=== PATIENT | female | born 1955 | race Caucasian/White ===

== ENCOUNTER 2018-05-03 21:40 | Emergency (ER) | payer BC ==
--- OUTSIDE RECORDS SUMMARY | 2018-05-03 21:42 | XMS REPORT | Clinical Summary ---
:1955 Author Organization [facility] Address [address] [place] [address] Care Team Providers Name Role Phone Ariela Bryant MD Primary Care Provider Allergies Active Allergy Reactions Severity Noted Date Comments Adhesive 11/01/2017 Codeine GI Intolerance High 11/20/2015 Current Medications Prescription Sig. Disp. Refills Start Date End Date Status metoprolol succinate XL Take 25 mg by Active (TOPROL-XL) 25 MG 24 hr mouth 2 (two) tablet times a day. rosuvastatin (CRESTOR) 10 daily. Active MG tablet spironolactone (ALDACTONE) every other day. Active 25 MG tablet aspirin (ECOTRIN) 81 MG Take 81 mg by Active enteric coated tablet mouth daily. MAGNESIUM OXIDE ORAL Take 800 mg by Active mouth 2 (two) times a day. conjugated estrogens Insert 0.5g in 42.5 g 1 11/09/2017 Active (PREMARIN) 0.625 mg/gram the vagina 2 vaginal creamIndications: times a week Uterovaginal prolapse, incomplete, Rectocele, Urinary urgency, Incontinence of feces, unspecified fecal incontinence type, Vaginal atrophy Active Problems Problem Noted Date Atrial fibrillation 11/19/2015 Cardiomegaly 11/19/2015 Coronary arteriosclerosis in [place] artery 11/19/2015 Disorder of cardiac function 11/19/2015 Abnormal electrocardiogram 11/19/2015 Palpitations 11/19/2015 Paroxysmal supraventricular tachycardia 11/19/2015 Paroxysmal ventricular tachycardia 11/19/2015 Extrasystole 11/19/2015 Encounters Date Type Specialty Care Team Description 03/22/2018 Office Visit Urogynecology Kristina Finn Uterovaginal prolapse , incomplete (Primary Dx); MAkhil, VICKY Rectocele; Urinary urgency; Incontinence of feces, unspecified fecal incontinence type; Vaginal atrophy; Encounter for fitting and adjustment of pessary 03/12/2018 Telephone Obstetrics [facility]ne[facility] Leonard Soto MD 03/02/2018 Telephone Obstetrics [facility] Leonard Soto MD 02/26/2018 Transcribe Orders Access Vinnie Horn Breast mass (Primary Dx) 01/18/2018 Telephone Obstetrics [facility] Gyne[facility] Leonard Soto MD 11/13/2017 Lab Lab Vinnie Horn MD 11/13/2017 Hospital Encounter Radiology Vinnie Horn Breast mass 11/13/2017 Hospital Encounter Radiology Vinnie Horn Breast mass 11/13/2017 Ancillary Orders Access Vinnie Horn Breast mass 11/09/2017 Office Visit Urogynecology Meseret Crisostomo Uterovaginal prolapse, incomplete (Primary Dx); Leonard Soto, Rectocele; MD Urinary urgency; Incontinence of feces, unspecified fecal incontinence type; Vaginal atrophy 11/06/2017 Telephone Radiology Brigitte Larios, SAVANNAH 11/03/2017 Telephone Radiology Brigitte Larios, RN 11/01/2017 Transcribe Orders Access Vinnie Horn Breast mass (Primary Dx) 11/01/2017 Telephone Radiology Brigitte Larios, RN 10/31/2017 Hospital Encounter Radiology Vinnie Horn, Abnormal mammogram 10/31/2017 Hospital Encounter Radiology Vinnie Horn, Abnormal mammogram 10/31/2017 Ancillary Orders Access Vinnie Horn, Abnormal mammogram 10/10/2017 Transcribe Orders Access Vninie Horn, Abnormal mammogram (Primary Dx) 09/18/2017 Telephone Obstetrics [facility] Gyne[facility] Leonard Soto MD after 05/02/2017 Family History Medical History Relation Name Comments Heart disease Brother heart attack age 42 Hyperlipidemia Brother Hyperlipidemia Brother Heart disease Brother Reggie Parham Jr Heart attack Hypertension Brother Reggie Parham Jr Hypertension Brother Richyjenelle Parham Learning disabilities Brother Reggie Parham Unknown Alzheimer's disease Father Reggie Parham Breast cancer Father Reggie Parham Cancer Father Reggie Parham Breast Dementia Father Reggie Parham Depression Father Reggie Parham Hearing loss Father Reggie Parham Menengioma Heart disease Father Reggie Parham Aortic stenosis Hemangiomas Father Reggie Arguetagas Hyperlipidemia Father Reggie Arguetagas Hypertension Father Reggie Ansaris Cancer Maternal Grandfather Reggie Fuentes Lung Heart disease Maternal Grandmother Kezia Fuentes Heart related illness from rheumatic fever Alzheimer's disease Mother Gayle Giourgas Breast cancer Mother Gayle Giourgas Cancer Mother Gayle Giourgas Breast Dementia Mother Gayle Giourgas Heart disease Mother Gayle Giourgas Aortic stenosis Hyperlipidemia Mother Gayle Giourgas Hypertension Mother Gayle Giourgas Asthma Paternal Grandfather Richy Giourgas Cancer Paternal Grandfather Richy Giourgas Stomach Cancer Paternal Grandmother Kalliopelmo Giourgas Brain Heart disease Paternal Grandmother Kalliopelmo Giourgas Heart attack Miscarriages / Paternal Grandmother Kalliopie Giourgas Stillbirths Relation Name Status Comments Brother Brother Brother Reggie Parham, Jr Brother Richy Arguetagas Brother Reggie Ansaris Father Reggie Ansaris Maternal Grandfather Reggie Fuentes Maternal Grandmother Kezia Fuentes Mother Gayle Giourgas Paternal Grandfather Richy Floresourgas Paternal Grandmother Tabitha Arguetagas Social History Tobacco Use Types Packs/Day Years Used Date Never Smoker Smokeless Tobacco: Never Used Alcohol Use Drinks/Week oz/Week Comments No Sex Assigned at Date Recorded Not on file Last Filed Vital Signs Vital Sign Reading Time Taken Blood Pressure 114/78 03/22/2018 2:29 PM CDT Pulse 87 03/22/2018 2:29 PM CDT Temperature 36.5 C (97.7 F) 03/22/2018 2:29 PM CDT Respiratory Rate - - Oxygen Saturation - - Inhaled Oxygen Concentration - - Weight 68.5 kg (151 lb) 03/22/2018 2:29 PM CDT Height 170.2 cm (5' 7") 03/22/2018 2:29 PM CDT Body Mass Index 23.65 03/22/2018 2:29 PM CDT Plan of Treatment Date Type Specialty Care Team Description 05/15/2018 Appointment Radiology Vinnie Horn MD [address] [place] [id number] [phone] Health Maintenance Due Date Last Done Comments CERVICAL CANCER SCREENING 1977 COLON CANCER SCREENING 2006 SHINGRIX VACCINE (#1) 2006 ZOSTER VACCINE 2016 INFLUENZA VACCINE 04/04/2018 BREAST CANCER SCREENING 11/14/2019 11/13/2017, 10/31/2017, 10/31/2017, Additional history exists Implants Implanted Type 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 MAMMO DIAGNOSTIC W Routine 11/13/2017 10:11 Breast mass Results for this CAD RIGHT AM CDT procedure are in the results section. US BREAST BIOPSY Routine 11/13/2017 9:50 Breast mass Results for this RIGHT AM CDT procedure are in the results section. MICROSCOPIC Routine 11/09/2017 1:45 Results for this EXAMINATION PM PASSEMENTERIE WORKER procedure are in the results section. URINALYSIS, Routine 11/09/2017 1:45 Results for this AUTOMATED WITH PM PASSEMENTERIE WORKER procedure are in MICROSCOPY the results section. URINE CULTURE Routine 11/09/2017 1:45 Urinary urgency Results for this PM PASSEMENTERIE WORKER procedure are in the results section. POC URINALYSIS Routine 11/09/2017 9:03 Uterovaginal Results for this DIPSTICK AM PASSEMENTERIE WORKER prolapse, incomplete procedure are in Urinary urgency the results section. MEASURE POST VOID Routine 11/09/2017 12:00 Uterovaginal Results for this RESIDUAL AM PASSEMENTERIE WORKER prolapse, incomplete procedure are in Urinary urgency the results section. US BREAST COMPLETE Routine 10/31/2017 3:30 Abnormal mammogram Results for this BILATERAL PM PASSEMENTERIE WORKER procedure are in the results section. MAMMO DIAGNOSTIC W Routine 10/31/2017 2:30 Abnormal mammogram Results for this CAD BILATERAL PM PASSEMENTERIE WORKER procedure are in the results section. after 05/02/2017 Results Surgical pathology request (11/13/2017 12:10 PM) [facility] DEPARTMENT OF PATHOLOGY AND GENOMIC MEDICINE Surgical pathology report See link below for PDF [facility] DEPARTMENT OF Lab Report PATHOLOGY AND GENOMIC MEDICINE Result status This is Final Report to [facility] DEPARTMENT OF [id number] PATHOLOGY AND GENOMIC MEDICINE Performing Organization Address [facility] Phone Number [facility] DEPARTMENT OF PATHOLOGY AND [address] [place] [address] GENOMIC MEDICINE Mammo Diagnostic w Cad Right (11/13/2017 10:11 AM) Addenda Addendum by Lucio Byrne MD on 11/16/2017 8:41 AM ADDENDUM #1 Addendum report for pathology. Anatomic path diagnosis of the right breast ultrasound-guided biopsy of the dense area of asymmetry reveals only stromal fibrosis. Reporting pathologist: Dr. Girma Kim M.D. on 11/14/2017. IMPRESSION: BI-RADS Category 3, probably benign findings. Recommend 6 month mammogram and ultrasound follow-up to ensure stability of these negative findings. Narrative Performed At PROCEDURE: US BREAST BIOPSY RIGHT, MAMMO DIAGNOSTIC W CAD RIGHT ANGELICA HASKINS Patient presents for biopsy of right upper outer quadrant focal echogenic irregular mass and/or density at mid depth with some posterior acoustic shadowing. After informed consent and timeout procedure a 12-gauge Bard biopsy device was utilized to biopsy the mass in the right upper outer quadrant. After biopsy placement of a small tissue marker was accomplished. This was a ribbon clip. Post procedure mammogram also accomplished on the right. The ribbon clip appears to be in the far lateral right breast, 9 o'clock position. IMPRESSION:Successful ultrasound-guided biopsy right breast. RECOMMENDATION: Await histopathology for further BI-RADS category. BI-RADS 0, incomplete. Awaiting histopathology for final BI-RADS category. [facility]-[id number] Performing Organization Address City/[facility]/Zipcode Phone Number ANGELICA HASKINS [address] [place] [address] US Breast Biopsy Right (11/13/2017 9:50 AM) Addenda Addendum by Lucio Byrne MD on 11/16/2017 8:41 AM ADDENDUM #1 Addendum report for pathology. Anatomic path diagnosis of the right breast ultrasound-guided biopsy of the dense area of asymmetry reveals only stromal fibrosis. Reporting pathologist: Dr. Girma Kim M.D. on 11/14/2017. IMPRESSION: BI-RADS Category 3, probably benign findings. Recommend 6 month mammogram and ultrasound follow-up to ensure stability of these negative findings. Narrative Performed At PROCEDURE: US BREAST BIOPSY RIGHT, MAMMO DIAGNOSTIC W CAD RIGHT ANGELICA HASKINS Patient presents for biopsy of right upper outer quadrant focal echogenic irregular mass and/or density at mid depth with some posterior acoustic shadowing. After informed consent and timeout procedure a 12-gauge Bard biopsy device was utilized to biopsy the mass in the right upper outer quadrant. After biopsy placement of a small tissue marker was accomplished. This was a ribbon clip. Post procedure mammogram also accomplished on the right. The ribbon clip appears to be in the far lateral right breast, 9 o'clock position. IMPRESSION:Successful ultrasound-guided biopsy right breast. RECOMMENDATION: Await histopathology for further BI-RADS category. BI-RADS 0, incomplete. Awaiting histopathology for final BI-RADS category. [facility]-[id number] Performing Organization Address City/[facility] Cent[facility]ode Phone Number [facility] [address] [place] [address] Microscopic Examination (11/09/2017 1:45 PM) WBC, UA None seen 0 - 5 /hpf [facility] RBC, UA 0-2 0 - 2 /hpf [facility] Epithelial cells (non renal) 0-10 0 - 10 /hpf [facility] Mucus, UA Present Not Estab. [facility] Bacteria, UA None seen None seen/Few [facility] Narrative Performed At Performed at: [facility] [address], [id number] [employer] Attendant: Young Clements MD, Phone:[phone] Performing Organization Address City/State/Zipcode Phone Number [facility] Urinalysis, automated with microscopy (11/09/2017 1:45 PM) Specific gravity, urine 1.014 1.005 - 1.030 [facility] pH, urine 6.0 5.0 - 7.5 [facility] Color, UA Yellow Yellow [facility] Appearance Clear Clear [facility] WBC esterase, urine Negative Negative [facility] Protein, UA Negative Negative/Trace [facility] Glucose, urine Negative Negative [facility] Ketones, UA Negative Negative [facility] Occult blood, urine Negative Negative [facility] Bilirubin, UA Negative Negative [facility] Urobilinogen, UA 0.2 0.2 - 1.0 mg/dL [facility] Nitrite, UA Negative Negative [facility] Microscopic examination CommentComment: Microscopic [facility] follows if indicated. Microscopic examination See below:Comment: Microscopic [facility] was indicated and was performed. Narrative Performed At Performed at:[address] [place], [place] [id number] [employer] Attendant: Young Clements MD, Phone:[phone] Performing Organization Address [facility] Phone Number [facility] Urine culture (11/09/2017 1:45 PM) Urine culture Beta hemolytic Streptococcus, group B [facility] 50,000-100,000 colony forming units per mL (A) Comment: Penicillin and ampicillin are drugs of choice for treatment of beta-hemolytic streptococcal infections. Susceptibility testing of penicillins and other beta-lactam agents approved by the FDA for treatment of beta-hemolytic streptococcal infections need not be performed routinely because nonsusceptible isolates are extremely rare in any beta-hemolytic streptococcus and have not been reported for Streptococcus pyogenes (group A). (CLSI 2011) Specimen Urine Narrative Performed At Performed at:[address] [place], [place] [id number] [employer] Attendant: Young Clements MD, Phone:[phone] Performing Organization Address [facility] Phone Number [facility] POC urinalysis dipstick (11/09/2017 9:03 AM) Color urine, POC Yellow Clarity urine, POC Clear Glucose urine, POC Negative Negative Bilirubin urine, POC Negative Negative Ketones urine, POC Negative Negative Specific gravity urine, POC 1.010 1.005 - 1.030 Blood urine, POC Trace (A) Negative pH urine, POC 6.0 5.0, 5.5, 6.0, 6.5, 7.0, 7.5, 8.0, 8.5 Protein urine, POC Negative Negative Urobilinogen urine, POC <2.0 <2.0 Nitrite urine, POC Negative Negative Leukocyte esterase urine, POC Trace (A) Negative Specimen Urine Measure post void residual (11/09/2017) Total volume, urine 0ml US Breast Complete Bilateral (10/31/2017 3:30 PM) Narrative Performed At EXAMINATION:MAMMO DIAGNOSTIC W CAD BILATERAL, US BREAST COMPLETE HM RADIANT BILATERAL INDICATION:61-year-old with the follow-up evaluation's from 2015 2016. COMPARISON:March 2016 through February 06, 2017. FINDINGS: The breasts are heterogeneously dense which, may obscure small masses.No suspicious mass was seen on the left breast as was being followed from February 2017. The patient was having left axillary pain. On today's exam there is focal asymmetry of the rounded nature in the posterior central right breast in the cc view and in the upper view and the axillary tail. Also a implantable cardiac device, tubular in shape is seen in the medial left breast. No abnormal adenopathy noted. No abnormal calcifications are seen. Spot magnification views in the right breast show persistent focal asymmetry in upper posterior breast. Bilateral whole breast sonography was performed with close supervision. This included sonographic evaluation of all 4 quadrants as well as the subareolar regions bilaterally.There is a focal echogenic irregularly defined mass and/or density in mid depth measuring roughly 2.3 cm with's some posterior acoustic shadowing. This may in fact be accounting for the focal asymmetry seen on the mammogram. IMPRESSION:Moderately suspicious finding on ultrasound, right breast upper outer quadrant. RECOMMENDATION: From an ultrasound-guided core biopsy. BI-RADS 4: SUSPICIOUS. [facility]-[id number] Performing Organization Address City/State/Zipcode Phone Number [facility] [address] [place] [address] Mammo Diagnostic w Cad Bilateral (10/31/2017 2:30 PM) Narrative Performed At EXAMINATION:MAMMO DIAGNOSTIC W CAD BILATERAL, US BREAST COMPLETE HM RADIANT BILATERAL INDICATION:61-year-old with the follow-up evaluation's from 2015 2016. COMPARISON:March 2016 through February 06, 2017. FINDINGS: The breasts are heterogeneously dense which, may obscure small masses.No suspicious mass was seen on the left breast as was being followed from February 2017. The patient was having left axillary pain. On today's exam there is focal asymmetry of the rounded nature in the posterior central right breast in the cc view and in the upper view and the axillary tail. Also a implantable cardiac device, tubular in shape is seen in the medial left breast. No abnormal adenopathy noted. No abnormal calcifications are seen. Spot magnification views in the right breast show persistent focal asymmetry in upper posterior breast. Bilateral whole breast sonography was performed with close supervision. This included sonographic evaluation of all 4 quadrants as well as the subareolar regions bilaterally.There is a focal echogenic irregularly defined mass and/or density in mid depth measuring roughly 2.3 cm with's some posterior acoustic shadowing. This may in fact be accounting for the focal asymmetry seen on the mammogram. IMPRESSION:Moderately suspicious finding on ultrasound, right breast upper outer quadrant. RECOMMENDATION: From an ultrasound-guided core biopsy. BI-RADS 4: SUSPICIOUS. [facility]-[id number] Performing Organization Address City/State/Zipcode Phone Number [facility] [address] [place] [address] after 05/02/2017 Insurance Payer Benefit Plan / Group Subscriber ID Type Phone Address BCBS BCBS CHOICE PPO/FEDERAL EMPL xxxxxxxxxxxx PPO PPO COMMERCIAL MISC MISC COMMERCIAL xxxxxx Commercial
[2018-05-03 22:36] LABS: Absolute Lymphocytes (CBC) 1.8 K/uL (0.7-4.9); Absolute Monocytes 0.9 K/uL (0.1-1.3); Basophils % 0.6 % (0-1.3); Eosinophils % 0.6 % (0-4.4); Hematocrit 44.9 % (36.0-45.0); Lymphocytes % 15.4 % (15.3-44.8); MCH 30.6 pg (27.0-35.0); MCV 90.7 fL (80-100); MPV 9.5 fL (7.6-11.3); Monocytes % 7.3 % (3.3-12.3); RBC Red Blood Cell Count 4.95 M/uL (3.86-4.86)
[2018-05-03 22:56] LABS: Protime INR 1.34
[2018-05-03 22:58] LABS: Urine Blood 1+ (NEG); Urine Glucose NEGATIVE (NEG); Urine Protein NEGATIVE (NEG)
[2018-05-03 23:10] LABS: ALT/SGPT 27 U/L (12-78); AST/SGOT 17 U/L (15-37); Albumin 3.9 g/dL (3.4-5.0); Alkaline Phosphatase 140 U/L (45-117); BUN Blood Urea Nitrogen 14 mg/dL (7-18); Bicarbonate 28 mmol/L (21-32); Bilirubin Direct 0.2 mg/dL (0-0.2); Bilirubin Total 0.7 mg/dL (0.2-1.0); CKMB Creatine Kinase MB < 1.0 ng/mL (0.3-3.6); Creatine Phosphokinase 53 U/L (26-192); Glucose Level 113 mg/dL (74-106); Magnesium 2.3 mg/dL (1.8-2.4); NT PRO-BNP 331 pg/mL (<125); Potassium 3.5 mmol/L (3.5-5.1); Protein, Total 7.9 g/dL (6.4-8.2); Sodium Level 142 mmol/L (136-145); T3 Free 3.32 pg/mL (2.18-3.98)
[2018-05-04] MEDS ORDERED: ASPIRIN 81 MG CHEWABLE TABLET ONE (00:22)
--- NOTE | 2018-05-04 02:03 | EDPHYS ---
Physician Documentation [facility] Name: Tabitha Combs Age: 62 yrs Sex: Female : 1955 Arrival Date: 05/03/2018 Time: 21:42 Bed 27 Private MD: Vinnie Horn V ED Physician Dandre Rivero HPI: 05/03 22:20 This 62 yrs old Female presents to ER via Ambulatory with complaints of cp Palpitations. 22:20 The patient presents with a history of heart racing. cp 22:20 Context: The symptoms occur and the patient has a history of SVT. cp 22:20 Onset: The symptoms/episode began/occurred today. Duration: The patient or guardian cp reports multiple episodes, that wax and wane, with no pattern. Associated signs and symptoms: Pertinent positives: chest pain, near-syncope, Pertinent negatives: cough, fever, SOB, syncope, vomiting. Severity of symptoms: in the emergency department the symptoms have resolved. Historical: - Allergies: 21:50 Codeine; aj1 - Home Meds: 21:50 metoprolol tartrate 25 mg Oral tab 2 times per day [Active]; spironolactone 25 mg Oral aj1 tab once daily [Active]; Crestor 10 mg Oral tab once daily [Active]; Magnesium Oxide Oral twice a day [Active]; Vitamin B-12 500 mcg Oral tab [Active]; aspirin 81 mg Oral TbEC [Active]; - PMHx: 21:50 Atrial Fib; Hyperlipidemia; Hypertension; SVT; VSD; aj1 - Immunization history:: Flu vaccine is not up to date. - Social history:: Smoking status: Patient/guardian denies using tobacco. - Ebola Screening: : Patient denies travel to an Ebola-affected area in the 21 days before illness onset. ROS: 22:30 Eyes: Negative for injury, pain, redness, and discharge. cp 22:30 Constitutional: Negative for body aches, chills, fever, poor PO intake. 22:30 ENT: Negative for drainage from ear(s), ear pain, sore throat, difficulty swallowing, difficulty handling secretions. 22:30 Cardiovascular: Positive for chest pain, palpitations, Negative for edema. 22:30 Respiratory: Negative for cough, shortness of breath, wheezing. 22:30 Abdomen/GI: Negative for abdominal pain, nausea, vomiting, and diarrhea, constipation, black/tarry stool, rectal bleeding. 22:30 Back: Negative for pain at rest, pain with movement, radiated pain. 22:30 : Negative for urinary symptoms. 22:30 Skin: Negative for cellulitis, rash. 22:30 Neuro: Positive for near syncope, Negative for altered mental status, dizziness, headache, syncope, weakness. 22:30 All other systems are negative. Exam: 22:12 ECG was reviewed by the Attending Physician. cp 22:35 Constitutional: The patient appears in no acute distress, alert, awake, cp non-diaphoretic, non-toxic, well developed, well nourished. 22:35 Head/Face: Normocephalic, atraumatic. cp 22:35 Eyes: Periorbital structures: appear normal, Pupils: equal, round, and reactive to cp light and accomodation, Extraocular movements: intact throughout, Conjunctiva: normal, no exudate, no injection, Lids and lashes: appear normal, bilaterally. 22:35 ENT: External ear(s): are unremarkable, Ear canal(s): are normal, clear, TM's: dullness, bilaterally, Nose: is normal, Mouth: Lips: moist, Oral mucosa: pink and intact, moist, Posterior pharynx: is normal, airway is patent, no erythema, no exudate. 22:35 Neck: ROM/movement: is normal, is supple, without pain, no range of motions limitations, no nuchal rigidity. 22:35 Chest/axilla: Inspection: normal, Palpation: is normal, no crepitus, no tenderness. 22:35 Cardiovascular: Rate: normal, Rhythm: regular, Pulses: Pulses are 2+ in right radial artery and left radial artery. Edema: is not appreciated, JVD: is not appreciated. 22:35 Respiratory: the patient does not display signs of respiratory distress, Respirations: cp normal, no use of accessory muscles, no retractions, no splinting, no tachypnea, Breath sounds: are clear throughout, no decreased breath sounds, no stridor, no wheezing. 22:35 Abdomen/GI: Inspection: abdomen appears normal, Bowel sounds: active, all quadrants, Palpation: abdomen is soft and non-tender, in all quadrants. 22:35 Back: pain, is absent, ROM is normal. 22:35 Skin: cellulitis, is not appreciated, no rash present. 22:35 Neuro: Orientation: to person, place \T\ time. Mentation: lucid, able to follow commands, Cerebellar function: is grossly normal, Motor: moves all fours, strength is normal, Sensation: no obvious gross deficits. 05/04 01:55 ECG was reviewed by the Attending Physician. cp Vital Signs: 05/03 21:50 BP 137 / 104; Pulse 103; Resp 18; Temp 97.4; Pulse Ox 97% on R/A; Weight 68.04 kg (R); aj1 Height 5 ft. 7 in. (170.18 cm) (R); Pain 4/10; 22:35 BP 142 / 91 LA (auto/reg); Pulse 88; Resp 17; Pulse Ox 97% on R/A; Pain 4/10; jp3 23:05 BP 132 / 91; Pulse 87; Resp 14; Pulse Ox 96% on R/A; rv 23:30 BP 139 / 94 Supine; Pulse 91; rv 23:30 BP 139 / 96 Sitting; Pulse 102; rv 23:30 BP 128 / 95 Standing; Pulse 101; rv 05/04 00:50 BP 136 / 90; Pulse 78; Resp 14; Pulse Ox 97% on R/A; rv 05/03 21:50 Body Mass Index 23.49 (68.04 kg, 170.18 cm) aj1 MDM: 05/03 22:02 Patient medically screened. cp 05/04 02:00 Data reviewed: vital signs, nurses notes, lab test result(s), EKG, radiologic studies, cp plain films. 02:00 Test interpretation: by ED physician or midlevel provider: ECG, plain radiologic cp studies. 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 Response to treatment: the patient's symptoms have markedly improved after treatment, VSS. No complaints of palpitations or chest pain while in ED. Will discharge to home for continued monitoring. Patient has appt with cardiology later today. 05/03 22:08 Order name: Basic Metabolic Panel; Complete Time: 23:15 cp 05/03 23:15 Interpretation: Normal except: GLUC 113; GFR 64. cp 05/03 22:08 Order name: CBC with Diff; Complete Time: 23:15 cp 05/03 22:08 Order name: Ckmb; Complete Time: 23:15 cp 05/03 22:08 Order name: CPK; Complete Time: 23:15 cp 05/03 22:08 Order name: LFT's; Complete Time: 23:15 cp 05/03 22:08 Order name: Magnesium; Complete Time: 23:15 cp 05/03 22:08 Order name: NT PRO-BNP; Complete Time: 23:15 cp 05/03 23:16 Interpretation: Abnormal: NT PRO-BNP 331. cp 05/03 22:08 Order name: PT-INR; Complete Time: 23:15 cp 05/03 22:08 Order name: Ptt, Activated; Complete Time: 23:15 cp 05/03 22:08 Order name: Troponin (emerg Dept Use Only); Complete Time: 23:15 cp 05/03 23:16 Interpretation: TROPED < 0.02; Reviewed. 05/03 22:08 Order name: TSH; Complete Time: 23:15 cp 05/03 22:08 Order name: T3 Free; Complete Time: 23:15 cp 05/03 22:43 Order name: Urine Dipstick--Ancillary (enter results); Complete Time: 23:15 mw2 05/04 00:51 Order name: Troponin I; Complete Time: 01:57 cp 05/04 01:57 Interpretation: Within normal limits: TROP < 0.02. cp 05/03 22:08 Order name: XRAY Chest (1 view) cp 05/03 22:08 Order name: EKG; Complete Time: 22:09 cp 05/03 22:08 Order name: Cardiac monitoring; Complete Time: 22:34 cp 05/03 22:08 Order name: EKG - Nurse/Tech; Complete Time: 22:34 cp 05/03 22:08 Order name: IV Saline Lock; Complete Time: 22:34 cp 05/03 22:08 Order name: Labs collected and sent; Complete Time: 22:34 cp 05/03 22:08 Order name: O2 Per Protocol; Complete Time: 22:34 cp 05/03 22:08 Order name: O2 Sat Monitoring; Complete Time: 22:34 cp 05/03 22:08 Order name: Urine Dipstick-Ancillary (obtain specimen); Complete Time: 22:34 cp 05/03 23:25 Order name: Orthostatics; Complete Time: 23:30 cp 05/04 00:51 Order name: EKG; Complete Time: 00:51 cp 05/04 00:51 Order name: EKG - Nurse/Tech; Complete Time: 01:53 cp EC/30 22:12 Rate is 92 beats/min. Rhythm is regular. WV interval is normal. QRS interval is cp prolonged at 108 msec. QT interval is normal. Interpreted by me. Reviewed by me. 05/04 01:55 Rate is 82 beats/min. Rhythm is regular. WV interval is normal. QRS interval is cp prolonged at 104 msec. QT interval is normal. Clinical impression: Abnormal EKG without significant change. Interpreted by me. Reviewed by me. Administered Medications: 00:41 Drug: Aspirin Chewable Tablet 324 mg Route: PO; rv 01:53 Follow up: Response: No adverse reaction rv Disposition: 12:38 Co-signature as Attending Physician, Dandre Rivero MD I agree with the assessment and wa plan of care. Disposition: 05/04/18 02:02 Discharged to Home. Impression: Palpitations. - Condition is Stable. - Discharge Instructions: Palpitations. - Medication Reconciliation Form, Thank You Letter, Antibiotic Education, Prescription Opioid Use form. - Follow up: Private Physician; When: Today; Reason: Recheck today's complaints, as scheduled. - Problem is new. - Symptoms have improved. Signatures: Dispatcher [employer] Alexa Bryson RN RN aj1 Santy Dietz PA PA cp Appiah, William, MD MD wa Vicente, Ronaldo, RN RN rv Corrections: (The following items were deleted from the chart) 02:14 02:02 05/04/2018 02:02 Discharged to Home. Impression: Palpitations. Condition is rv Stable. Forms are Medication Reconciliation Form, Thank You Letter, Antibiotic Education, Prescription Opioid Use. Follow up: Private Physician; When: Today; Reason: Recheck today's complaints, as scheduled. Problem is new. Symptoms have improved. cp
--- NOTE | 2018-05-04 02:03 | ER ---
Nurse's Notes [facility] Name: Tabitha Combs Age: 62 yrs Sex: Female : 1955 Arrival Date: 05/03/2018 Time: 21:42 Bed 27 Private MD: Vinnie Horn V Diagnosis: Palpitations Presentation: 05/03 21:47 Presenting complaint: Patient states: She has a history of SVT, She was suppose to [facility] follow up with her doctor tomorrow, but today she kept feeling like she was going to pass out so she came to the ER. Reports palpitations, chest pain, feeling like she is going to pass out. Denies shortness of breath. Transition of care: patient was not received from another setting of care. Onset of symptoms was May 03, 2018. Risk Assessment: Do you want to hurt yourself or someone else? Patient reports no desire to harm self or others. Initial Sepsis Screen: Does the patient meet any 2 criteria? No. Patient's initial sepsis screen is negative. Does the patient have a suspected source of infection? No. Patient's initial sepsis screen is negative. Care prior to arrival: None. 21:47 Method Of Arrival: Ambulatory [facility] 21:47 Acuity: RUBIN 3 aj1 Triage Assessment: 21:50 General: Appears in no apparent distress. uncomfortable, Behavior is calm, cooperative, aj1 appropriate for age. Pain: Complains of pain in chest Pain currently is 4 out of 10 on a pain scale. Neuro: Level of Consciousness is awake, alert, obeys commands, Speech is normal, Facial symmetry appears normal, Reports dizziness. Cardiovascular: Reports chest pain, palpitations, Patient's skin is warm and dry. Respiratory: Airway is patent Respiratory effort is even, unlabored, Respiratory pattern is regular, symmetrical. Historical: - Allergies: 21:50 Codeine; aj1 - Home Meds: 21:50 metoprolol tartrate 25 mg Oral tab 2 times per day [Active]; spironolactone 25 mg Oral aj1 tab once daily [Active]; Crestor 10 mg Oral tab once daily [Active]; Magnesium Oxide Oral twice a day [Active]; Vitamin B-12 500 mcg Oral tab [Active]; aspirin 81 mg Oral TbEC [Active]; - PMHx: 21:50 Atrial Fib; Hyperlipidemia; Hypertension; SVT; VSD; aj1 - Immunization history:: Flu vaccine is not up to date. - Social history:: Smoking status: Patient/guardian denies using tobacco. - Ebola Screening: : Patient denies travel to an Ebola-affected area in the 21 days before illness onset. Screenin:44 Abuse screen: Denies threats or abuse. Denies injuries from another. Nutritional rv screening: No deficits noted. Tuberculosis screening: No symptoms or risk factors identified. Fall Risk None identified. Assessment: 22:43 General: Appears in no apparent distress. comfortable, Behavior is calm, cooperative. rv Pain: Denies pain. Neuro: Level of Consciousness is awake, alert, obeys commands, Oriented to person, place, time, situation. Cardiovascular: Capillary refill < 3 seconds. Respiratory: Airway is patent. GI: No signs and/or symptoms were reported involving the gastrointestinal system. : No signs and/or symptoms were reported regarding the genitourinary system. EENT: No signs and/or symptoms were reported regarding the EENT system. Derm: Skin is intact. 05/04 00:50 Reassessment: Patient appears in no apparent distress at this time. Patient and/or rv family updated on plan of care and expected duration. Pain level reassessed. Patient is alert, oriented x 3, equal unlabored respirations, skin warm/dry/pink. Vital Signs: 05/03 21:50 BP 137 / 104; Pulse 103; Resp 18; Temp 97.4; Pulse Ox 97% on R/A; Weight 68.04 kg (R); aj1 Height 5 ft. 7 in. (170.18 cm) (R); Pain 4/10; 22:35 BP 142 / 91 LA (auto/reg); Pulse 88; Resp 17; Pulse Ox 97% on R/A; Pain 4/10; jp3 23:05 BP 132 / 91; Pulse 87; Resp 14; Pulse Ox 96% on R/A; rv 23:30 BP 139 / 94 Supine; Pulse 91; rv 23:30 BP 139 / 96 Sitting; Pulse 102; rv 23:30 BP 128 / 95 Standing; Pulse 101; rv 05/04 00:50 BP 136 / 90; Pulse 78; Resp 14; Pulse Ox 97% on R/A; rv 05/03 21:50 Body Mass Index 23.49 (68.04 kg, 170.18 cm) aj1 ED Course: 05/03 21:42 Patient arrived in ED. es 21:42 Vinnie Horn MD is Private Physician. es 21:49 Triage completed. aj1 21:50 Arm band placed on. aj1 21:50 Pulse ox on. NIBP on. jp3 22:02 Santy Dietz PA is PHCP. cp 22:02 Dandre Rivero MD is Attending Physician. cp 22:20 Initial lab(s) drawn, by me, sent to lab. Inserted saline lock: 22 gauge in right jp3 antecubital area, using aseptic technique. Blood collected. 22:30 Urine collected: clean catch specimen, clear, jarrod colored, Amount Voided: 100mL. jp3 22:32 Bed in low position. Call light in reach. Side rails up X 1. jp3 22:34 T3 Free Sent. jp3 22:35 TSH Sent. jp3 22:35 Basic Metabolic Panel Sent. jp3 22:35 CBC with Diff Sent. jp3 22:35 CPK Sent. jp3 22:35 Ckmb Sent. jp3 22:35 LFT's Sent. jp3 22:35 Magnesium Sent. jp3 22:35 NT PRO-BNP Sent. jp3 22:35 PT-INR Sent. jp3 22:35 Ptt, Activated Sent. jp3 22:35 Troponin (emerg Dept Use Only) Sent. jp3 23:20 XRAY Chest (1 view) In Process Unspecified. EDMN 05/04 02:14 No provider procedures requiring assistance completed. IV discontinued, bleeding rv controlled, No redness/swelling at site. Pressure dressing applied. Administered Medications: 00:41 Drug: Aspirin Chewable Tablet 324 mg Route: PO; rv 01:53 Follow up: Response: No adverse reaction rv Outcome: 02:02 Discharge ordered by . cp 02:14 Discharged to home ambulatory. rv 02:14 Condition: good 02:14 Discharge instructions given to patient, Instructed on discharge instructions, follow up and referral plans. 02:14 Patient left the ED. rv Signatures: Dispatcher [employer] EDMN Alexa Noe RN RN aj1 Yulissa Zhao es Santy Dietz PA PA cp Vicente, Ronaldo RN RN rv Chente Martin jp3
--- NOTE | 2018-05-04 08:37 | RAD REPORT ---
EXAM DESCRIPTION: RAD - Chest Single View - 05/03/2018 11:20 pm CLINICAL HISTORY: PALPITATIONS Chest pain. COMPARISON: Chest Pa And Lat (2 Views) dated 11/21/2017; Chest Single View dated 05/28/2016; Chest Sin gle View dated 01/17/2016; CHEST SINGLE VIEW dated 12/13/2008 FINDINGS: Portable technique limits examination quality. The lungs are grossly clear. The heart is normal in size. No displaced fractures. IMPRESSION: No acute intrathoracic process suspected.
--- NOTE | 2018-05-05 06:09 | EKG ---
Test Date: 2018-05-04 Test Time: 01:48:10 Fuel Cell Battery Technician: MEASUREMENT RESULTS: Intervals: Rate: 82 IL: 170 QRSD: 104 QT: 388 QTc: 453 [place]: P: 73 IL: 170 QRS: -46 T: 1 INTERPRETIVE STATEMENTS: Sinus rhythm with occasional and consecutive premature ventricular complexes Right atrial enlargement Left anterior fascicular block Nonspecific ST and T wave abnormality Abnormal ECG Compared to ECG 12/07/2016 08:49:30 Atrial abnormality now present Left anterior fascicular block now present ST (T wave) deviation still present Electronically Signed On 05-05-18 06:07:31 CDT by Amanuel Esquivel
--- NOTE | 2018-05-05 06:10 | EKG ---
Test Date: 2018-05-03 Test Time: 22:03:30 Audit Intern: MEASUREMENT RESULTS: Intervals: Rate: 86 MT: 182 QRSD: 110 QT: 378 QTc: 452 [place]: P: 72 MT: 182 QRS: -17 T: 35 INTERPRETIVE STATEMENTS: Sinus rhythm with occasional premature ventricular complexes Right atrial enlargement Nonspecific ST abnormality Abnormal ECG Compared to ECG 12/07/2016 08:49:30 Atrial abnormality now present ST (T wave) deviation still present Electronically Signed On 05-05-18 06:07:41 CDT by Amanuel Esquivel
== END 2018-05-04 02:14 | disposition home or self-care (01) ==
LOC: ER 21:40
DX: R00.2 Palpitations (principal); I10 Essential (primary) hypertension; E78.5 Hyperlipidemia, unspecified; I48.91 Unspecified atrial fibrillation; Z79.82 Long term (current) use of aspirin; Z88.5 Allergy status to narcotic agent
CPT/HCPCS: 36415; 71045; 80048; 80076; 81003; 82550; 82553; 83735; 83880; 84443; 84481; 84484; 85025; 85610; 85730; 93005; 99284

== ENCOUNTER 2021-03-12 08:30 | Day surgery (SDC) | payer BC ==
[2021-03-11 15:16] LABS: Protime INR 1.06
[2021-03-11 15:22] LABS: Potassium 3.4 mmol/L (3.5-5.1)
[2021-03-11 16:51] LABS: Absolute Lymphocytes (CBC) 2.1 K/uL (0.7-4.9); Hematocrit 42.9 % (36.0-45.0); Lymphocytes % 31.7 % (15.3-44.8); MPV 10.2 fL (7.6-11.3); RBC Red Blood Cell Count 4.86 M/uL (3.86-4.86)
[2021-03-12] MEDS ORDERED: NA CHLORIDE 0.9% 500 ML ONE (09:17)
[2021-03-12] MEDS ORDERED: MIDAZOLAM HCL 2 MG/2 ML INJ ONE ×2 (10:30→10:36)
[2021-03-12] MEDS ORDERED: FENTANYL CITR 100 MCG/2 ML ONE (10:30)
[2021-03-12] MEDS ORDERED: ATROPINE SULF 1 MG/10 ML SYR IV ONE (10:31)
[2021-03-12] MEDS ORDERED: NA CHLORIDE 0.9% 0 ML ONE (10:31)
--- NOTE | 2021-03-12 11:03 | OP ---
Date of Procedure: 03/12/2021 Surgeon: Amanuel Esquivel MD Blocklayer: Mr. Moiz Buck. Total conscious sedation was 45 minutes. The patient will be at bedrest for 2 hours after the cathet erization, then she will go home after that. I see her in the office in 2 weeks. Admitted on 03/12/2021 as an outpatient for left heart catheterization, selective coronary arteriogra m. Indication: Atypical chest pain and a positive stress test. Procedure In Detail: Ms. Combs was brought to the director of labor and delivery as an outpatient today, 03/12/2021. She was prepped and draped in routine sterile fashion. She was given Versed and fentanyl for IV sedatio n. A 6-Kiswahili sheath was introduced in the right common femoral artery successfully after using 10 c c of Xylocaine. We used a Seldinger technique. Kay catheter, left and right were used to do the catheterization. Her RCA was normal, but very small, very non dominant. Her left main was normal. Her circumflex and LAD were free of disease, but they were very tortuous. We had to use a JL 3.5 ca theter for that. Overall, tortuous coronaries. No focal stenosis. A 6-Kiswahili sheath and catheters were used. Angiography in the groin was normal. Angio-Seal was used to close the case. There were no complications. Blood Loss: 5 mL. Postoperative Diagnoses: Normal coronaries, atypical chest pain, positive stress test, status post p acemaker. Plan: Plan is for medical therapy. KINA/VINITA Voice ID: [id number] Report ID: [id number]
[2021-03-12 12:22] VITALS: O2SAT 96
[2021-03-12 12:29] VITALS: BP 126/74; TEMP 97
== END 2021-03-12 12:51 | disposition home or self-care (01) ==
LOC: CCL 08:30
DX: R94.39 Abnormal result of other cardiovascular function study (principal); R07.89 Other chest pain; I10 Essential (primary) hypertension; I48.0 Paroxysmal atrial fibrillation; I47.2 Ventricular tachycardia; E78.2 Mixed hyperlipidemia; Z95.810 Presence of automatic (implantable) cardiac defibrillator; Z20.822 Contact with and (suspected) exposure to COVID-19; Z88.6 Allergy status to analgesic agent; Z88.8 Allergy status to other drugs, medicaments and biological substances; Z82.49 Family history of ischemic heart disease and other diseases of the circulatory system
CPT/HCPCS: 85025; 80048; 36415; 85610; 85730; 93454; U0003; C1893; C1760; J2250 ×2; J3010; J7040; J0583

== ENCOUNTER 2021-06-21 19:14 | Observation (INO) | payer BC ==
[2021-06-21 19:37] LABS: Urine Blood Negative (Negative); Urine Glucose Negative (Negative); Urine Protein Negative (Negative)
[2021-06-21 20:28] LABS: Absolute Lymphocytes (CBC) 2.5 K/uL (0.7-4.9); Basophils % 0.8 % (0-1.3); Hematocrit 42.9 % (36.0-45.0); Lymphocytes % 33.2 % (15.3-44.8); MPV 9.8 fL (7.6-11.3); RBC Red Blood Cell Count 4.77 M/uL (3.86-4.86)
[2021-06-21 20:31] LABS: Protime INR 1.01
[2021-06-21 20:40] LABS: ALT/SGPT 32 U/L (12-78); AST/SGOT 22 U/L (15-37); Alkaline Phosphatase 125 U/L (45-117); BUN Blood Urea Nitrogen 26 mg/dL (7-18); Bicarbonate 28 mmol/L (21-32); Bilirubin Direct < 0.1 mg/dL (0-0.2); Bilirubin Total 0.2 mg/dL (0.2-1.0); Glucose Level 101 mg/dL (74-106); Magnesium 2.2 mg/dL (1.8-2.4); NT PRO-BNP 197 pg/mL (<125); Potassium 3.9 mmol/L (3.5-5.1); Protein, Total 7.7 g/dL (6.4-8.2); Sodium Level 142 mmol/L (136-145); Troponin (Emerg Dept Use Only) < 0.02 ng/mL (0.0-0.045)
--- NOTE | 2021-06-21 21:29 | RAD REPORT ---
EXAM DESCRIPTION: RAD - Chest Single View - 06/21/2021 8:57 pm CLINICAL HISTORY: CHEST PAIN COMPARISON: December 02 TECHNIQUE: AP portable chest image was obtained 06/21/2021 8:57 pm . FINDINGS: No focal mass or consolidation. Interstitial pattern not significantly different when adju sting for technique differences. Heart size and vasculature are normal and stable range. Pacemaker re carolyne in place. No measurable pleural effusion and no pneumothorax. No acute bony abnormality seen. N o acute aortic findings suspected. IMPRESSION: No acute cardiopulmonary process. No significant change from comparison study.
--- NOTE | 2021-06-21 22:00 | ER ---
Nurse's Notes [facility] Name: Tabitha Combs Age: 65 yrs Sex: Female : 1955 Arrival Date: 06/21/2021 Time: 19:15 Bed 7 Private MD: Diagnosis: Chest pain, unspecified;Essential (primary) hypertension Presentation: 06/21 19:28 Chief complaint: Patient states: Pt arrived to ED with midsternal chest pain. Pt states wg the pain started at 1730 tonight while at rest. Pt also states she has a hx of anxiety and this feels like either that or GERD but unsure. Pt denies radiation of pain, no sob, N/V/D. Coronavirus screen: Vaccine status: Patient reports receiving the 2nd dose of the covid vaccine. Date May 04, 2021. Ebola Screen: Patient negative for fever greater than or equal to 101.5 degrees Fahrenheit, and additional compatible Ebola Virus Disease symptoms Patient denies exposure to infectious person. Patient denies travel to an Ebola-affected area in the 21 days before illness onset. No symptoms or risks identified at this time. Initial Sepsis Screen: Does the patient meet any 2 criteria? No. Patient's initial sepsis screen is negative. Does the patient have a suspected source of infection? No. Patient's initial sepsis screen is negative. Risk Assessment: Do you want to hurt yourself or someone else? Patient reports no desire to harm self or others. Onset of symptoms was June 21, 2021 at 17:30. 19:28 Method Of Arrival: Ambulatory 19:28 Acuity: RUBIN 3 wg Triage Assessment: 19:32 General: Appears uncomfortable, well groomed, well developed, Behavior is cooperative, wg appropriate for age, anxious. Pain: Complains of pain in chest. Cardiovascular: Reports chest pain, Denies diaphoresis, fatigue, lightheadedness, nausea, palpitations, shortness of breath, vomiting, Capillary refill < 3 seconds. Respiratory: No deficits noted. Airway is patent Trachea midline Respiratory effort is even, unlabored, Respiratory pattern is regular, symmetrical. GI: No deficits noted. Abdomen is round non-distended. Historical: - Allergies: 19:32 Codeine; wg - Home Meds: 22:28 valsartan 40 mg oral tab 1 tab 2 times per day for hypertension [Active]; cc4 22:30 sotalol 80 mg Oral tab 1 tab 2 times per day for life-threatening ventricular cc4 tachycardia [Active]; - PMHx: 19:32 Atrial Fib; Hypertension; SVT; Hyperlipidemia; wg - Immunization history:: Adult Immunizations up to date. - Social history:: Smoking status: unknown. - Code Status:: Full code. - Coronavirus screen:: The patient has NOT traveled to [place] in the past 14 days. The patient has NOT had contact with known/suspected case of Coronavirus? Reports having 'Covid" in 10/2020; reports completing [employer] 04/2021. Screenin:40 Abuse screen: Denies threats or abuse. Nutritional screening: No deficits noted. cc4 Tuberculosis screening: No symptoms or risk factors identified. Fall Risk None identified. Assessment: 19:40 General: Appears uncomfortable, Behavior is cooperative, anxious. cc4 19:40 Respiratory: No deficits noted. Airway is patent. cc4 19:40 Neuro: No deficits noted. Level of Consciousness is awake, alert, obeys commands, cc4 Oriented to person, place, time, situation, Urogynecology Physician are equal bilaterally. Cardiovascular: No deficits noted. Heart tones S1 S2 Capillary refill < 3 seconds Rhythm is sinus rhythm Chest pain is described as mild, quality is "ache" is located in epigastric area radiates epigastrium to lower mid chest. GI: No deficits noted. Abdomen is non-distended, Bowel sounds present X 4 quads. Reports last BM today "normal". : Denies any difficulty with urination. EENT: No signs and/or symptoms were reported regarding the EENT system. 19:40 Pain: Complains of pain in chest Pain radiates to abdomen Pain currently is 2 out of 10 cc4 on a pain scale. Quality of pain is described as aching, Pain began 2 hours ago. 22:20 General: Reports h/o defibrillator 2018 7 h/o ventricular tachycardia and atrial cc4 fibrillation.. 06/22 01:35 Pain: Complains of pain in chest Pain does not radiate. Pain currently is 3 out of 10 cc4 on a pain scale. 01:36 General: EKG done with no changes noted \\T\\ given to Dr. Rivera to view with no new cc4 orders recieved.. 02:00 General: Ativan 0.5 mg given slow IVP as ordered; hypertensive;. Pain: Complains of cc4 pain in chest Pain does not radiate. Pain currently is 3 out of 10 on a pain scale. 03:00 General: Sleeping; arouses easily; reports relief of chest pain' BP decreased to cc4 118/79; SR with no ectopy.. 08:24 General: report called to SAVANNAH Bryan . ap3 Vital Signs: 06/21 19:20 BP 185 / 106; Pulse 80; Resp 20; Pulse Ox 99% on R/A; cc4 19:28 BP 185 / 106; Pulse 84; Resp 20; Temp 97.2; Pulse Ox 100% on R/A; Weight 70.31 kg; wg Height 5 ft. 7 in. (170.18 cm); Pain 2/10; 20:00 BP 172 / 98; Pulse 88; Resp 20; Pulse Ox 99% on R/A; cc4 21:00 BP 150 / 100; Pulse 87; Resp 20; Pulse Ox 98% on R/A; cc4 22:00 BP 162 / 105; Pulse 82; Resp 20; Pulse Ox 98% on R/A; cc4 23:00 BP 159 / 107; Pulse 76; Resp 20; Pulse Ox 97% on R/A; cc4 06/22 00:30 BP 139 / 84; Pulse 76; Resp 20; Temp 97.2; Pulse Ox 95% on R/A; cc4 06/21 19:28 Body Mass Index 24.28 (70.31 kg, 170.18 cm) ED Course: 06/21 19:15 Patient arrived in ED. cf2 19:23 Santy Rivera MD is Attending Physician. flakito 19:25 Leonora Post, SAVANNAH is Primary Nurse. cc4 19:30 school lunch monitor on. Pulse ox on. NIBP on. cc4 19:32 Triage completed. wg 19:34 Arm band placed on right wrist. EKG completed in triage. Results shown to MD. EKG wg completed in triage. Results shown to MD. 19:40 Patient has correct armband on for positive identification. Bed in low position. Call cc4 light in reach. Side rails up X 1. 19:40 O2 via O2 sat 99-100% RA. cc4 19:45 Inserted saline lock: 20 gauge in left antecubital area, using aseptic technique. cc4 20:53 SARS-COV-2 RT PCR Sent. cc4 20:54 XRAY Chest (1 view) Sent. cc4 20:57 XRAY Chest (1 view) In Process Unspecified. EDMS 21:58 Vinnie Horn MD is Hospitalizing Provider. [facility] 06/22 02:00 No provider procedures requiring assistance completed. cc4 08:32 Patient admitted, IV remains in place. ap3 Administered Medications: 06/21 22:19 Drug: Norvasc (amlodipine) 10 mg Route: PO; cc4 22:50 Follow up: Urine output 800 ml; Response: No adverse reaction cc4 22:19 Drug: Aspirin Chewable Tablet 162 mg Route: PO; cc4 22:50 Follow up: Response: No adverse reaction cc4 22:20 Drug: Lovenox (enoxaparin) 70 mg Route: Sub-Q; Site: left lower abdomen; cc4 22:50 Follow up: Response: No adverse reaction cc4 22:27 Drug: Pepcid (famotidine) 20 mg Route: IVP; Site: left antecubital; cc4 22:50 Follow up: Response: No adverse reaction [facility] 06/22 02:00 Drug: Ativan (LORazepam) 0.5 mg Route: IVP; Site: left antecubital; cc4 03:00 Follow up: Response: No adverse reaction; Marked relief of symptoms; Pain is decreased; cc4 Anxiety decreased 03:05 Not Given (Patient Refused; Reports that brought her med and she has already cc4 taken pm Sotalol.): Sotalol 80 mg PO once 03:06 Not Given (Pt reports taking her pm dose \\T\\ 1800 before coming to ER.): Valsartan 40 mg cc4 PO once 03:10 CANCELLED (Duplicate Order): Ativan (LORazepam) 0.5 mg IVP once cc4 03:11 CANCELLED (Lovenox 70 mg given SQ \\T\\ 2220 as orderedd): PlaVIX (clopidogrel) 600 mg PO cc4 once Output: 06/21 22:50 Urine: 800ml; Total: 800ml. cc4 Outcome: 21:59 Decision to Hospitalize by Provider. [facility] 06/22 03:00 Condition: improved cc4 08:32 Admitted to Med/surg accompanied by tech, via stretcher, room 228, with chart, Report ap3 called to Randi 08:32 Discharge instructions given to patient, Instructed on the need for admit. 08:50 Patient left the ED. ap3 Signatures: Dispatcher [employer] EDMS Santy Rivera MD MD cha Prokisch, Amanda RN RN ap3 Chaparro Gonzales cf2 Pranav Richardson, SAVANNAH wg Leonora Post RN RN cc4 Corrections: (The following items were deleted from the chart) 06/21 20:14 19:56 THYROID STIMULAT HORMONE+C.LAB.BRZ drawn and sent. cc4 EDMS 21: 20:30 BP 172 / 98; Pulse 88bpm; Resp 20bpm; Pulse Ox 99% RA; cc4 cc4 :18 21:08 Neuro: No deficits noted. Level of Consciousness is awake, alert, obeys commands, cc4 Oriented to person, place, time, situation, cc4 : 19:40 PMHx: VSD; cc4 cc4 22:26 21:20 Pepcid (famotidine) 20 mg IVP in left antecubital cc4 cc4 06/22 04:12 06/21 19:40 Pain: Complains of pain in chest Pain radiates to abdomen Pain currently is cc4 2 out of 10 on a pain scale. Quality of pain is described as aching, Pain began 2 hours ago. cc4
--- NOTE | 2021-06-21 22:00 | EDPHYS ---
Physician Documentation [facility] Name: Tabitha Combs Age: 65 yrs Sex: Female : 1955 Arrival Date: 06/21/2021 Time: 19:15 Bed 7 Private MD: ED Physician Santy Rivera HPI: 06/21 21:55 This 65 yrs old Female presents to ER via Ambulatory with complaints of Chest flakito Pain. Historical: - Allergies: 19:32 Codeine; wg - Home Meds: 22:28 valsartan 40 mg oral tab 1 tab 2 times per day for hypertension [Active]; cc4 22:30 sotalol 80 mg Oral tab 1 tab 2 times per day for life-threatening ventricular cc4 tachycardia [Active]; - PMHx: 19:32 Atrial Fib; Hypertension; SVT; Hyperlipidemia; wg - Immunization history:: Adult Immunizations up to date. - Social history:: Smoking status: unknown. - Code Status:: Full code. - Coronavirus screen:: The patient has NOT traveled to [place] in the past 14 days. The patient has NOT had contact with known/suspected case of Coronavirus? Reports having 'Covid" in 10/2020; reports completing [employer] 04/2021. ROS: 21:56 Constitutional: Negative for fever, chills, and weight loss, Eyes: Negative for injury, flakito pain, redness, and discharge, ENT: Negative for injury, pain, and discharge, Neck: Negative for injury, pain, and swelling, Respiratory: Negative for shortness of breath, cough, wheezing, and pleuritic chest pain, Abdomen/GI: Negative for abdominal pain, nausea, vomiting, diarrhea, and constipation, Back: Negative for injury and pain, : Negative for injury, bleeding, discharge, and swelling, MS/Extremity: Negative for injury and deformity, Skin: Negative for injury, rash, and discoloration, Neuro: Negative for headache, weakness, numbness, tingling, and seizure, Psych: Negative for depression, anxiety, suicide ideation, homicidal ideation, and hallucinations, Allergy/Immunology: Negative for hives, rash, and allergies, Endocrine: Negative for neck swelling, polydipsia, polyuria, polyphagia, and marked weight changes, Hematologic/Lymphatic: Negative for swollen nodes, abnormal bleeding, and unusual bruising. 21:56 Cardiovascular: Positive for chest pain, of the chest. Exam: 21:56 Constitutional: This is a well developed, well nourished patient who is awake, alert, flakito and in no acute distress. Head/Face: Normocephalic, atraumatic. Eyes: Pupils equal round and reactive to light, extra-ocular motions intact. Lids and lashes normal. Conjunctiva and sclera are non-icteric and not injected. Cornea within normal limits. Periorbital areas with no swelling, redness, or edema. ENT: Nares patent. No nasal discharge, no septal abnormalities noted. Tympanic membranes are normal and external auditory canals are clear. Oropharynx with no redness, swelling, or masses, exudates, or evidence of obstruction, uvula midline. Mucous membranes moist. Neck: Trachea midline, no thyromegaly or masses palpated, and no cervical lymphadenopathy. Supple, full range of motion without nuchal rigidity, or vertebral point tenderness. No Meningismus. Chest/axilla: Normal chest wall appearance and motion. Nontender with no deformity. No lesions are appreciated. Cardiovascular: Regular rate and rhythm with a normal S1 and S2. No gallops, murmurs, or rubs. Normal PMI, no JVD. No pulse deficits. Respiratory: Lungs have equal breath sounds bilaterally, clear to auscultation and percussion. No rales, rhonchi or wheezes noted. No increased work of breathing, no retractions or nasal flaring. Abdomen/GI: Soft, non-tender, with normal bowel sounds. No distension or tympany. No guarding or rebound. No evidence of tenderness throughout. Back: No spinal tenderness. No costovertebral tenderness. Full range of motion. Female : Normal external genitalia. Skin: Warm, dry with normal turgor. Normal color with no rashes, no lesions, and no evidence of cellulitis. MS/ Extremity: Pulses equal, no cyanosis. Neurovascular intact. Full, normal range of motion. Neuro: Awake and alert, GCS 15, oriented to person, place, time, and situation. Cranial nerves II-XII grossly intact. Motor strength 5/5 in all extremities. Sensory grossly intact. Cerebellar exam normal. Normal gait. Psych: Awake, alert, with orientation to person, place and time. Behavior, mood, and affect are within normal limits. 21:56 Musculoskeletal/extremity: DVT Exam: No signs of deep vein thrombosis. no pain, no swelling, no tenderness, negative Homans' sign noted on exam, no appreciated bluish discoloration, no erythema, no increased warmth. 06/22 02:15 ECG was reviewed by the Attending Physician. [facility] Vital Signs: 06/21 19:20 BP 185 / 106; Pulse 80; Resp 20; Pulse Ox 99% on R/A; cc4 19:28 BP 185 / 106; Pulse 84; Resp 20; Temp 97.2; Pulse Ox 100% on R/A; Weight 70.31 kg; wg Height 5 ft. 7 in. (170.18 cm); Pain 2/10; 20:00 BP 172 / 98; Pulse 88; Resp 20; Pulse Ox 99% on R/A; cc4 21:00 BP 150 / 100; Pulse 87; Resp 20; Pulse Ox 98% on R/A; cc4 22:00 BP 162 / 105; Pulse 82; Resp 20; Pulse Ox 98% on R/A; cc4 23:00 BP 159 / 107; Pulse 76; Resp 20; Pulse Ox 97% on R/A; cc4 06/22 00:30 BP 139 / 84; Pulse 76; Resp 20; Temp 97.2; Pulse Ox 95% on R/A; cc4 06/21 19:28 Body Mass Index 24.28 (70.31 kg, 170.18 cm) wg MDM: 06/21 19:23 Patient medically screened. [facility] 21:56 Differential diagnosis: abnormal EKG, acute myocardial infarction, acute pericarditis, flakito gastritis, peptic ulcer disease, stable angina, unstable angina. HEART Score: History: Slightly Suspicious (0), ECG: Non specific repolarization disturbance / LBTB / PM (1), Age: > 45 and < 65 years (1), Risk Factors: > or = 3 Risk factors for atherosclerotic disease (2), [Hypercholesterolemia] [Hypertension] [+ Family HX] Troponin: < or = 1 x Normal Limit (0), Total Score = 4. The patient was given aspirin in the Emergency Department. The patient's deep vein thrombosis risk score was calculated as follows: Total Score: 0. This patient was found to be at low risk for a deep vein thrombosis by using the Well's assessment criteria. The patient's pulmonary embolism risk score was calculated as follows: Total Score: 0-2 points. This patient was found to be at low risk for a pulmonary embolism by using the Well's assessment criteria. GABY Risk Score: not applicable. Data reviewed: vital signs, nurses notes, lab test result(s), EKG, radiologic studies, plain films. Data interpreted: teletypesetter monitor: rate is 87 beats/min, rhythm is atrial fibrillation, Pulse oximetry: on room air is 98 %. Test interpretation: by ED physician or midlevel provider: ECG, plain radiologic studies. Counseling: I had a detailed discussion with the patient and/or guardian regarding: the historical points, exam findings, and any diagnostic results supporting the discharge/admit diagnosis, lab results, radiology results, the need for further work-up and treatment in the hospital. 06/21 19:26 Order name: Basic Metabolic Panel; Complete Time: 21:50 em 06/21 19:26 Order name: CBC with Diff; Complete Time: 21:50 em 06/21 19:26 Order name: LFT's; Complete Time: 21:50 em 06/21 19:26 Order name: Magnesium; Complete Time: 21:50 em 06/21 19:26 Order name: NT PRO-BNP; Complete Time: 21:50 em 06/21 19:26 Order name: PT-INR; Complete Time: 21:50 em 06/21 19:26 Order name: Troponin (emerg Dept Use Only); Complete Time: 21:50 em 06/21 19:37 Order name: Urine Dipstick-Ancillary; Complete Time: 21:50 EDMS 06/21 20:14 Order name: Thyroid Stimulating Hormone; Complete Time: 21:50 EDMS 06/21 20:16 Order name: SARS-COV-2 RT PCR; Complete Time: 21:50 EDMS 06/22 03:58 Order name: Basic Metabolic Panel EDMS 06/22 04:00 Order name: CBC with Automated Diff EDMS 06/21 19:26 Order name: XRAY Chest (1 view); Complete Time: 21:50 em 06/21 19:26 Order name: EKG; Complete Time: 19:27 em 06/21 19:26 Order name: Cardiac monitoring; Complete Time: 19:39 em 06/21 19:26 Order name: EKG - Nurse/Tech; Complete Time: 19:39 em 06/21 22:03 Order name: CONS Physician Consult; Complete Time: 03:12 EDNY 06/22 01:35 Order name: EKG; Complete Time: 01:36 [facility] 06/22 04:03 Order name: Troponin I EDNY 06/21 19:26 Order name: IV Saline Lock; Complete Time: 20:54 06/21 19:26 Order name: Labs collected and sent; Complete Time: 20:54 06/21 19:26 Order name: O2 Sat Monitoring; Complete Time: 19:39 06/22 01:35 Order name: EKG - Nurse/Tech; Complete Time: 03:11 [facility] EC/19 02:15 Rate is 75 beats/min. Rhythm is regular. QRS [place] is Normal. IA interval is normal. QRS flakito interval is normal. QT interval is normal. No Q waves. T waves are Normal. ST Segment is depressed in leads II, III, aVF, V3, V4, V5, V6. Clinical impression: NSR w/ Non-specific ST/T Changes. Interpreted by me. Reviewed by me. Administered Medications: 06/21 22:19 Drug: Norvasc (amlodipine) 10 mg Route: PO; cc4 22:50 Follow up: Urine output 800 ml; Response: No adverse reaction cc4 22:19 Drug: Aspirin Chewable Tablet 162 mg Route: PO; cc4 22:50 Follow up: Response: No adverse reaction cc4 22:20 Drug: Lovenox (enoxaparin) 70 mg Route: Sub-Q; Site: left lower abdomen; cc4 22:50 Follow up: Response: No adverse reaction cc4 22:27 Drug: Pepcid (famotidine) 20 mg Route: IVP; Site: left antecubital; cc4 22:50 Follow up: Response: No adverse reaction cc4 06/22 02:00 Drug: Ativan (LORazepam) 0.5 mg Route: IVP; Site: left antecubital; cc4 03:00 Follow up: Response: No adverse reaction; Marked relief of symptoms; Pain is decreased; cc4 Anxiety decreased 03:05 Not Given (Patient Refused; Reports that brought her med and she has already cc4 taken pm Sotalol.): Sotalol 80 mg PO once 03:06 Not Given (Pt reports taking her pm dose \\T\\ 1800 before coming to ER.): Valsartan 40 mg cc4 PO once 03:10 CANCELLED (Duplicate Order): Ativan (LORazepam) 0.5 mg IVP once cc4 03:11 CANCELLED (Lovenox 70 mg given SQ \\T\\ 2220 as orderedd): PlaVIX (clopidogrel) 600 mg PO cc4 once Disposition Summary: 06/21/21 21:59 Hospitalization Ordered Hospitalization Status: Observation flakito Provider: Vinnie Horn cha Condition: Stable flakito Problem: new flakito Symptoms: have improved flakito Bed/Room Type: Standard flakito Location: Telemetry/MedSurg (observation)(06/22/21 07:44) ja1 Room Assignment: 228(06/22/21 07:44) ja Diagnosis - Chest pain, unspecified flakito - Essential (primary) hypertension flakito Forms: - Medication Reconciliation Form flakito - SBAR form flakito Signatures: Dispatcher [employer] EDMS Santy Rivera MD MD cha Munoz, Edgar, RN Lucy Jimenes RN RN Nick Longoria RN RN [facility] Pranav Richardson RN Leonora Post RN RN cc4 Corrections: (The following items were deleted from the chart) 06/21 20:14 19:39 THYROID STIMULAT HORMONE+C.LAB.BRZ ordered. EDNY EDMS 20:16 19:39 CORONAVIRUS+MR.LAB.BRZ ordered. EDNY EDMS 21:21 19:40 PMHx: VSD; cc4 cc4 22:24 21:59 flakito cg 23:02 22:24 420 cg 23:06 21:59 Telemetry/MedSurg (observation) flakito cg 23:06 23:02 [facility] 06/22 03:10 01:35 Ativan (LORazepam) 0.5 mg IVP once ordered. flakito cc4 03:11 02:15 PlaVIX (clopidogrel) 600 mg PO once ordered. flakito cc4 07:44 06/21 23:06 BR ER HOLD ja1 06/22 07:44 06/21 23:06 ERHOLD- ja
[2021-06-21] MEDS ORDERED: AMLODIPINE 10 MG TAB ONE (22:36)
[2021-06-21] MEDS ORDERED: ASPIRIN 81 MG CHEWABLE TABLET ONE (22:36)
[2021-06-21] MEDS ORDERED: ENOXAPARIN 80 MG/0.8 ML SQ ONE (22:37)
[2021-06-21] MEDS ORDERED: FAMOTIDINE 20 MG/2 ML VIAL IV ONE (22:37)
[2021-06-22 01:30] VITALS: BMI 24.7
[2021-06-22] MEDS ORDERED: LORazepam 2 MG/ML VIAL IV PRN (01:41)
[2021-06-22 03:54] LABS: Absolute Lymphocytes (CBC) 2.3 K/uL (0.7-4.9); Basophils % 0.6 % (0-1.3); Lymphocytes % 32.2 % (15.3-44.8)
[2021-06-22 03:58] LABS: Potassium 3.6 mmol/L (3.5-5.1)
[2021-06-22] MEDS ORDERED: SOTALOL HCL 80 MG TAB PO SCH (06:00)
[2021-06-22] MEDS ORDERED: ACETAMINOPHEN 325 MG TABLET PO PRN (07:28)
[2021-06-22] MEDS ORDERED: FAMOTIDINE 20 MG/2 ML VIAL IV SCH (09:00)
[2021-06-22] MEDS ORDERED: AMLODIPINE 5 MG TAB PO SCH (09:00)
[2021-06-22] MEDS ORDERED: VALSARTAN 160 MG TAB PO SCH (09:00)
[2021-06-22] MEDS ORDERED: ASPIRIN EC 81 MG TAB PO SCH (09:00)
[2021-06-22] MEDS ORDERED: ENOXAPARIN 80 MG/0.8 ML SQ SCH (09:00)
[2021-06-22 11:57] VITALS: BP 140/79; TEMP 97.9
--- NOTE | 2021-06-22 13:05 | P.SSS ---
Patient History Date of Service: 06/22/21 Reason for admission: CHEST PAIN History of Present Illness: SHANT HAS HISTORY OF A .FIB, ANXIETY AND HYPERTENSION. SHE HAS HAD ABLATIONS AND PACEMAKER. SHE COMES IN WITH PRESSURE LIKE CHEST PAIN FOR 2 HOURS. PAIN IS NOT THERE ANY LONGER. SHE HAD NORMAL CARDAIC CATH ABOUT 3 MONTHS AGO. HER CE ARE NEGATIVE. I TALKED TO DR. MAKI AND HE AGREES THAT WE NEED TO TREAT FOR CORONARY SPASM. Allergies codeine Allergy (Verified 06/22/21 10:17) Nausea/Vomiting Home medications list reviewed: Yes Home Medications: Valsartan/Hydrochlorothiazide [Valsartan-Hctz 80-12.5 mg Tab] 1 each PO DAILY 06/22/21 - Social History Smoking Status: Unknown if ever smoked Physical Examination - Vital Signs Temperature: 97.9 F Blood Pressure: 140/79 Pulse: 70 Respirations: 19 Pulse Ox (%): 99 - Physical Exam General: Oriented x3, Mild distress HEENT: Atraumatic, PERRLA, Mucous membr. moist/pink, EOMI, Sclerae nonicteric Neck: Supple, 2+ carotid pulse no bruit, No LAD, Without JVD or thyroid abnormality Respiratory: Clear to auscultation bilaterally, Normal air movement Cardiovascular: Regular rate/rhythm, Normal S1 S2 Gastrointestinal: Normal bowel sounds, No tenderness Musculoskeletal: No tenderness Integumentary: No rashes Neurological: Normal gait, Normal speech, Normal strength at 5/5 x4 extr, Normal tone, Normal affect Lymphatics: No axilla or inguinal lymphadenopathy - Studies Laboratory Data (last 24 hrs) 06/21/21 19:40: PT 11.6, INR 1.01 06/21/21 19:40: WBC 7.50, Hgb 14.3, Hct 42.9, Plt Count 239 06/21/21 19:40: Sodium 142, Potassium 3.9, BUN 26 H, Creatinine 1.04, Glucose 101, Magnesium 2.2, Total Bilirubin 0.2, AST 22, ALT 32, Alkaline Phosphatase 125 H - Diagnosis (Problem(s)) (1) Coronary artery spasm Current Visit: Yes Status: Acute Plan: MAY BE HELPED BY CARDIZEM- OR NORVASC (2) History of atrial fibrillation Current Visit: Yes Status: Acute Plan: SHE WAS ON BETAPACE BEFORE BUT NOT ANY LONGER IT LOOKS LIKE. I WILL CLARIFY WITH HER. (3) HTN (hypertension) Current Visit: Yes Status: Chronic (4) Anxiety disorder Current Visit: Yes Status: Chronic Plan: LEXAPRO TAKEN AND WELL TOLERATED. - Disposition Disposition: ROUTINE DISCHARGE
[2021-06-22 13:35] VITALS: O2SAT 90
--- NOTE | 2021-06-22 16:42 | EKG ---
Test Date: 2021-06-22 Test Time: 06:53:01 Afternoon Nanny: BO MEASUREMENT RESULTS: Intervals: Rate: 68 [place]: 186 QRSD: 114 QT: 442 QTc: 469 [place]: P: 62 [place]: 186 QRS: -43 T: -33 INTERPRETIVE STATEMENTS: Normal sinus rhythm Left axis deviation ST & T wave abnormality, consider anterolateral ischemia Abnormal ECG Compared to ECG 06/22/2021 02:07:27 Left ventricular hypertrophy no longer present ST (T wave) deviation still present Possible ischemia still present Electronically Signed On 06-22-21 16:40:53 CDT by Amanuel Esquivel
--- NOTE | 2021-06-22 16:43 | EKG ---
Test Date: 2021-06-22 Test Time: 02:07:27 Visiting Teacher: YANET MEASUREMENT RESULTS: Intervals: Rate: 75 [place]: 188 QRSD: 122 QT: 442 QTc: 493 [place]: P: 51 [place]: 188 QRS: -37 T: -36 INTERPRETIVE STATEMENTS: Normal sinus rhythm Left axis deviation Left ventricular hypertrophy with QRS widening ST & T wave abnormality, consider anterolateral ischemia Abnormal ECG Compared to ECG 06/22/2021 02:06:09 Prolonged QT interval no longer present ST (T wave) deviation still present Possible ischemia still present Electronically Signed On 06-22-21 16:40:59 CDT by Amanuel Esquivel
--- NOTE | 2021-06-22 16:43 | EKG ---
Test Date: 2021-06-22 Test Time: 02:06:09 [place]: YANET MEASUREMENT RESULTS: Intervals: Rate: 77 OR: 188 QRSD: 116 QT: 444 QTc: 502 [place]: P: 54 OR: 188 QRS: -37 T: -32 INTERPRETIVE STATEMENTS: Normal sinus rhythm Left axis deviation Left ventricular hypertrophy with QRS widening ST & T wave abnormality, consider anterolateral ischemia Prolonged QT Abnormal ECG Compared to ECG 06/21/2021 19:29:09 Left-axis deviation now present Possible ischemia now present Prolonged QT interval now present Left anterior fascicular block no longer present ST (T wave) deviation still present Electronically Signed On 06-22-21 16:41:00 CDT by Amanuel Esquivel
--- NOTE | 2021-06-22 16:44 | EKG ---
Test Date: 2021-06-21 Test Time: 19:29:09 Pediatric Anesthesiologist: CRISTIANE MEASUREMENT RESULTS: Intervals: Rate: 85 IA: 182 QRSD: 112 QT: 404 QTc: 480 [place]: P: 54 IA: 182 QRS: -46 T: -15 INTERPRETIVE STATEMENTS: Normal sinus rhythm Possible Left atrial enlargement Left anterior fascicular block Left ventricular hypertrophy Nonspecific ST abnormality Abnormal ECG Compared to ECG 05/04/2018 01:48:10 Left ventricular hypertrophy now present Ventricular premature complex(es) no longer present ST (T wave) deviation still present Electronically Signed On 06-22-21 16:41:11 CDT by Amanuel Esquivel
[2021-06-23] MEDS ORDERED: hydroCHLOROthiazide 12.5 MG CAP PO SCH (09:00)
[2021-06-23] MEDS ORDERED: VALSARTAN 80 MG TAB PO SCH (09:00)
--- NOTE | 2021-06-23 12:54 | CON ---
Date of Consultation: 06/22/2021 Reason For Consultation: Atypical chest pain. Procedure In Detail: Ms. Combs is 65. Recently had a heart catheterization showing tortuous small coronaries, but no focal stenosis and had normal echo with normal stress test in the past. Comes in with atypical chest pain, sharp, stabbing, midsternal, mostly nonexertional. No nausea, vomiting, di aphoresis, PND, orthopnea, pedal edema, palpitations, or syncope. Past Medical History: As stated above. Allergies: NONE. Review of Systems: Noncontributory. Social History: Noncontributory. Family History: Noncontributory. Physical Examination: General: She appeared to be slightly anxious. Vital Signs: Otherwise, vital signs stable, afebrile. HEENT: Negative. Neck: Supple with no bruit. Chest: Clear. Cardiac: Normal. Abdomen: Benign. Extremities: Revealed no clubbing, cyanosis, or edema. Diagnostic Data: All normal. Impression And Plan: Persistent chest pain despite normal echo, normal stress test and normal cathet erization. She does have small vessel that is tortuous. It is possible she is having spa sm, although I doubt it considering she has EKG during her pain and it did not show any EKG changes. Nevertheless, I think using a Norvasc low dose may be a good calcium channel richard for vasodilatio n. We will try that on her. She is already taking sotalol for atrial fibrillation and she is in sin us rhythm. We will continue that. Cardizem to avoid worsening bradycardia. Case was dis cussed with Dr. Horn. She can go home whenever it is okay with him. KINA/VINITA Voice ID: [id number] Report ID: [id number]
== END 2021-06-22 15:47 | disposition home or self-care (01) ==
LOC: ER 19:14 → 4TH 22:47 → ERHOLD 23:00 → 2ND 06-22 08:29
PROVIDERS: ADMIT Internal Medicine; ATTEND Internal Medicine
DX: I20.1 Angina pectoris with documented spasm (principal); I10 Essential (primary) hypertension; I48.91 Unspecified atrial fibrillation; F41.9 Anxiety disorder, unspecified; I77.1 Stricture of artery; E78.5 Hyperlipidemia, unspecified; Z95.0 Presence of cardiac pacemaker; Z88.6 Allergy status to analgesic agent; Z20.822 Contact with and (suspected) exposure to COVID-19
CPT/HCPCS: 93005 ×4; 85025 ×2; 80048 ×2; 36415; 83735; 85610; 80076; 84443; 81003; 84484 ×2; 83880; 71045; 96375; 96372; 96374; 99285; U0003; G0378 ×2

== ENCOUNTER 2022-10-18 03:00 | Observation (INO) | payer OTHER ==
--- OUTSIDE RECORDS SUMMARY | 2022-10-18 03:04 | XMS REPORT | Continuity of Care Document ---
:1955 Author Organization [facility] t Address [address] [place] [address] Care Team Providers Name Role Phone Asked, No Pcp Primary Care Physician Unavailable Saturnino HOLBROOK, Sami Attending Clinician Hanh Horn MD Attending Clinician Annita Han MD Attending Clinician Myrna Hurd MD Attending Clinician Tra Fan Attending Clinician Tra Roberts MD Attending Clinician Joel Hurd MD Attending Clinician Octavia Ariza NP Attending Clinician Meseret Crisostomo MD Attending Clinician [phone] Bernarda Tierney RN Attending Clinician Unavailable Maria Ines Buck Attending Clinician Unavailable AVE HENRIQUEZ Attending Clinician Unavailable GIULIANO ROSARIO Attending Clinician Unavailable ANNITA HAN Admitting Clinician Unavailable TRA ROBERTS Admitting Clinician Unavailable GIULIANO ROSARIO Admitting Clinician Unavailable Payers Payer Name Policy Type Policy Number Effective Date Expiration Date S ource Problems Condition Condition Condition Status Onset Resolution Last Treating Co mments Source Name Details Category Date Date Treatment Clinician Date Paroxysmal Paroxysmal Disease Active 2021-09 M ethodi atrial atrial 0-28 st fibrillati fibrillati 00:00: Ho spita on on 00 l VSD VSD Disease Active Methodi (ventricul (ventricul 6-29 st ar septal ar septal 00:00: Hosp tatiana defect) defect) 00 l Implantabl Implantabl Disease Active M ethodi e e 4-27 st cardiovert cardiovert 00:00: Ho spita er-defibri er-defibri 00 l llator llator (ICD) in (ICD) in situ situ V tach V tach Disease Active Methodi 9-06 st 00:00: Hospita 00 l Atrial Atrial Disease Active Methodi fibrillati fibrillati 3-17 st on on 00:00: Hospita 00 l Cardiomega Cardiomega Disease Active M ethodi ly ly 3-17 st 00:00: Hospita 00 l Coronary Coronary Disease Active Metho di arterioscl arterioscl 3-17 st erosis in erosis in 00:00: Hosp tatiana augustine augustine 00 l artery artery Disorder Disorder Disease Active Metho di of cardiac of cardiac 317 st function function 00:00: Hospit a 00 l Abnormal Abnormal Disease Active Metho di electrocar electrocar [address] diogram diogram 00:00: Hospita 00 l Palpitatio Palpitatio Disease Active M ethodi ns ns 317 st 00:00: Hospita 00 l 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 supraventr 3-17 st icular icular 00:00: Hospita tachycardi tachycardi 00 l a a 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 317 st r r 00:00: Hospita tachycardi tachycardi 00 l a a Extrasysto Extrasysto Disease Active M ethodi le le 317 st 00:00: Hospita 00 l Allergies, Adverse Reactions, Alerts Allergy Allergy Status Severity Reaction(s) Onset Inactive Treating Comm ents Source Name Type Date Date Clinician Epinephr Propensi Active Palpitations Methodi ine ty to 9-06 st adverse 00:00: Hospita reaction 00 l s to drug Adhesive Propensi Active Method i ty to 2-28 st adverse 00:00: Hospita reaction 00 l s to drug Codeine Propensi Active GI Methodi ty to Intolerance 3-18 st adverse 00:00: Hospita reaction 00 l s to drug Family History Family Member Diagnosis Comments Start Date Stop Date Source Natural brother Heart disease Method [facility] Natural brother [facility] Natural brother Hypertension [facility] Natural brother Learning disabilities [facility] Natural father Alzheimer's disease [facility] Natural father Breast cancer [facility] father Cancer [facility] Natural father Dementia [facility] Natural father Depression [facility] Natural father Hearing loss [facility] Natural father Heart disease [facility] Natural father Hemangiomas [facility] Natural father Hyperlipidemia Method [facility] Natural father Hypertension [facility] Maternal Cancer [facility] Maternal Heart disease [facility] Natural mother Alzheimer's disease [facility] Natural mother Breast cancer [facility] mother Cancer [facility] mother Dementia [facility] Natural mother Heart disease [facility] Natural mother Hyperlipidemia Method [facility] Natural mother Hypertension [facility] Paternal Asthma [facility] Paternal Cancer [facility] Paternal Cancer [facility] Paternal Heart disease [facility] Social History Social Habit Start Date Stop Date Quantity Comments Source Alcohol intake 2022-07-05 2022-07-05 Current Christian 00:00:00 00:00:00 non-drinker of Hospital alcohol (finding) Tobacco use and 2016-03-21 2016-03-21 Smokeless tobacco Me [facility] exposure 00:00:00 00:00:00 non-user Hospital Sex Assigned At [birth year] F [facility] 00:00:00 00:00:00 Hospital Smoking Status Start Date Stop Date Source Never smoked tobacco [facility] Medications Ordered Filled Start Stop Current Ordering Indication Dosage Frequency Signature Comments Components Source Medication Medication Date Date Medication? Clinician (SIG) Name Name rivaroxaban 2021-09 Yes 20mg Take 1 Meth reshma (XARELTO) 0-30 tablet (20 st 20 mg 18:14: mg total) Hospita tablet 01 by mouth. l spironolact 2021-09 Yes 25mg Q2D Take 1 Meth reshma one 0-30 tablet (25 st (ALDACTONE) 18:14: mg total) H ospita 25 MG 01 by mouth l tablet every other day. cholecalcif 2021-09 Yes 2000U QD Take 2,000 Methodi jamshid, 0-[address] vitamin D3, 18:19: mouth Hospi ta 50 mcg 44 daily. l (2,000 unit) capsule capsule pantoprazol 2021-09- No 40mg Q.5D Take 1 Met hodi e -02 08- tablet (40 st (PROTONIX) 00:00: 05:59 mg total) H ospita 40 MG EC 00 :00 by mouth 2 l tablet (two) times a day for 30 days. colchicine 2021-09- No .6mg Q.5D Take 1 Meth reshma 0.6 mg 08-[address] tablet 00:00: 05:59 (0.6 mg Hospita 00 :00 total) by l mouth 2 (two) times a day as needed (as needed for post ablation chest pain) for up to 30 days. sucralfate 2021-09- No 1g [id number] Take 1 Methodi (CARAFATE) 08-02 [id number] tablet (1 st 1 gram 00:00: 05:59 3D g total) Hospit a tablet 00 :00 by mouth 3 l (three) times a day with meals for 30 days. amLODIPine 2021-09 No 2.5mg QD Take 2.5 M ethodi (NORVASC) 0-27 10-[address] 2.5 mg 15:25: 00:00 mouth Hospita tablet 29 :00 daily. l therapeutic 2021- No 1{tbl} QD Take 1 M ethodi multivitami 12-[address] n 08:26: 00:00 mouth Hospita (THERAGRAN) 03 :00 daily. l tablet spironolact 2021- No 25mg QD Take 25 mg Methodi one 12-[address] (ALDACTONE) 08:25: 00:00 daily. Hos antonio 25 MG 55 :00 l tablet rosuvastati No 10mg QD Take 10 mg Methodi n (CRESTOR) 12-[address] 10 MG 08:25: 00:00 daily. Hospita tablet 15 :00 l aspirin No 81mg QD Take 81 mg Met hodi (ECOTRIN) 12-[address] 81 MG 08:24: 00:00 daily. Hospita enteric 04 :00 l coated tablet ampicillin 2021- No 250mg Q.25D Take 250 Methodi (PRINCIPEN) 12-30- mg by st 250 MG 08:23: 00:00 mouth 4 Hospita capsule 51 :00 (four) l times a day. sotaloL Yes 80mg Q.5D Take 1 Methodi (BETAPACE) 12-29 tablet (80 st 80 MG 00:00: mg total) Hospita tablet 00 by mouth 2 l (two) times a day. pantoprazol No 40mg QD 1 tablet M ethodi e 11-05-29 ([address] (PROTONIX) 00:00: 00:00 total) Hosp tatiana 40 MG EC 00 :00 daily. l tablet nitrofurant 2021- No [id number] 100mg Q.5D Take 1 Methodi oin, 10-31 03-[address] macrocrysta 00:00: 05:59 (100 mg Ho spita l-monohydra 00 :00 total) by l te, mouth 2 (Macrobid) (two) 100 MG times a capsule day for 5 days. estradioL 2021- No [id number] Insert or Methodi (Estrace) 10-[address] 0.01 % (0.1 00:00: 00:00 gram Hospi ta mg/gram) 00 :00 vaginally l vaginal two cream times/week metoprolol 2017-09- No TK 1 T PO M ethodi succinate 12-[address] XL 00:00: 00:00 Hospita (TOPROL-XL) 00 :00 l 50 mg 24 hr tablet Vital Signs Vital Name Observation Time Observation Value Comments Source Systolic blood 2022-08-09 15:37:00 170 mm[Hg] Method ist Hospital pressure Diastolic blood 2022-08-09 15:37:00 95 mm[Hg] [facility]o dist Hospital pressure Heart rate 2022-08-09 15:37:00 70 /[facility] 2022-08-09 15:37:00 72.576 kg [facility] BMI 2022-08-09 15:37:00 25.06 kg/m2 [facility] Oxygen saturation in 2022-08-09 15:37:00 98 /min [facility] Arterial blood by Pulse oximetry Respiratory rate 2022-07-26 18:29:00 20 /min [facility] Body temperature 2022-07-02 16:43:56 36.22 [facility] Body height 2022-07-01 15:52:00 170.2 cm [facility] Procedures Procedure Date / Time Performing Source Performed Clinician CV MRI FUNCTION VIABILITY CHF 2022-08-09 Sami Matamoros [facility]odist EVALUATION 16:24:13 [facility] ESTIMATED GFR 2022-08-09 Sami Matamoros 15:32:00 [facility] POC PANEL 2022-08-09 Sami Matamoros 15:32:00 [facility] US BREAST COMPLETE BILATERAL 2022-08-03 Hanh Horn hodist 16:59:21 [facility] MAMMO BREAST DIAGNOSTIC 2022-08-03 Hanh Horn TOMOSYNTHESIS BILATERAL 16:38:38 Hospital POC CREATININE 2022-07-26 Annita Han 17:42:00 Hospital ESTIMATED GFR 2022-07-26 Annita Han 17:42:00 [facility] BASIC METABOLIC PANEL 2022-07-02 Annita Han 09:59:00 Hospital MAGNESIUM LEVEL 2022-07-02 Annita Han 09:59:00 Hospital ESTIMATED GFR 2022-07-02 Annita Han 09:59:00 [facility] EP COMPLETE EP STUDY W ABLATION 2022-07-01 Annita Han PULMONARY VEIN 19:05:41 Hospital ACTIVATED CLOTTING TIME 2022-07-01 Annita Han t 18:53:00 Hospital ACTIVATED CLOTTING TIME 2022-07-01 Annita Han 18:15:00 Hospital ACTIVATED CLOTTING TIME 2022-07-01 Annita Han 17:46:00 Hospital [place] AN ELECTIVE ENDOTRACHEAL AIRWAY 2022-07-01 Yanelis Hurd 17:11:00 L. Hospital TYPE AND SCREEN 2022-07-01 Annita Han 15:57:00 Hospital ECG PRE/POST OP 2022-07-01 Annita Han 15:43:37 Hospital COVID-19 QUALITATIVE RT-PCR 2022-06-28 Annita Han odarchana 14:39:00 Hospital PROTHROMBIN TIME WITH INR 2022-06-28 Annita Han ist 14:39:00 Hospital MAGNESIUM LEVEL 2022-06-28 Annita Han 14:39:00 Hospital CBC WITH PLATELET AND DIFFERENTIAL 2022-06-28 Annita Han 14:39:00 Hospital COMPREHENSIVE METABOLIC PANEL 2022-06-28 Annita Han thodist 14:39:00 Hospital ESTIMATED GFR 2022-06-28 Annita Han 14:39:00 Hospital XR CHEST 2 VW 2022-06-09 Sami Matamoros 20:25:34 Hospital SURGICAL PATHOLOGY REQUEST 2021-12-30 Tra Roberts hodist 14:53:00 Hospital ESOPHAGOGASTRODUODENOSCOPY (EGD) 2021-12-30 Tra Roberts Christian 13:30:00 Hospital COVID-19 QUALITATIVE RT-PCR 2021-12-27 Tra Roberts Ga [facility]odist 19:26:00 Hospital URINE CULTURE 2021-10-28 Meseret Crisostomo 17:59:00 [facility] POC URINALYSIS DIPSTICK 2021-10-28 Meseret Crisostomo 17:47:00 [facility] MEASURE POST VOID RESIDUAL 2021-10-28 Meseret Crisostomo 00:00:00 [facility] Plan of Care Planned Activity Planned Date Details Comments Source Future Scheduled 2022-10-18 65+ PNEUMOCOCCAL [facility] Test 03:02:58 VACCINE (1 - PCV) [code = 65+ PNEUMOCOCCAL VACCINE (1 - PCV)] Future Scheduled 2022-10-[address] [facility] Test 03:02:58 (procedure) [code = 338547113] Future Scheduled 2022-10-18 Scre[facility] for [facility] Test 03:02:58 malignant neoplasm of cervix (procedure) [code = 393604996] Future Scheduled 2022-10-18 COLONOSCOPY SCREENING [facility] Test 03:02:58 [code = COLONOSCOPY SCREENING] Future Scheduled 2022-10-18 SHINGLES VACCINES (1 Met [facility] Test 03:02:58 of 2) [code = SHINGLES VACCINES (1 of 2)] Future Scheduled 2022-10-18 COVID-19 VACCINE (3 - [facility] Test 03:02:58 Booster for Pfizer series) [code = COVID-19 VACCINE (3 - Booster for Pfizer series)] Future Scheduled 2022-10-18 INFLUENZA VACCINE [facility] Test 03:02:58 [code = INFLUENZA VACCINE] Future Scheduled 2022-10-18 BREAST CANCER [facility] Test 03:02:58 SCREENING [code = BREAST CANCER SCREENING] Encounters Start End Encounter Admission Attending Care Care Encounter Source Date/Time Date/Time Type Type Clinicians Facility Department ID 2022-08-09 2022-08-09 [facility], 1.2.840.1 [id number] Methodi 08:33:24 23:59:00 Encounter Sami 48661.1.[address] 3.430.2.7 Hospit a .3.396998 l .8 2022-08-09 2022-08-09 Travel 1.2.840.1 1.2.848.211 [id number] [id number] Methodi 00:00:00 00:00:[address] 3.430.2.7 0.2.7.3.698 spita .3.611880 084.8 l .8 2022-08-09 2022-08-09 Outpatient [facility] [id number] [place] 00:00:00 00:00:00 NADIM [address] 2022-08-03 2022-08-03 [facility] 1.2.840.1 [id number] Methodi 10:05:20 23:59:00 Encounter Hanh 41625.1.[address] 3.430.2.7 Hospit a .3.236014 l .8 2022-08-03 2022-08-03 [facility] 1.2.840.1 [id number] Methodi 10:00:00 10:04:00 Encounter Hanh 83589.1.[address] 3.430.2.7 Hospit a .3.641144 l .8 2022-08-03 2022-08-03 Travel 1.2.840.1 1.2.113.049 2749 [id number] Methodi 00:00:00 00:00:[address] 3.430.2.7 0.2.7.3.698 Ho spita .3.486233 084.8 l .8 2022-08-03 2022-08-03 Outpatient [facility] [id number] [place] 00:00:00 00:00:00 HANH [address] 2022-08-03 2022-08-03 Outpatient [facility] [id number] [place] 00:00:00 00:00:00 HANH [address] 2022-07-26 2022-07-26 [facility] Annita Han 1.2.840.1 [id number] Methodi 11:08:21 23:59:[address] 3.430.2.7 Hospit a .3.004339 l .8 2022-07-26 2022-07-26 [facility] 1.2.840.1 [id number] [id number] Methodi 00:00:00 00:00:[address]ice [address].1.[address] 3.430.2.7 Hospit a .3.778658 l .8 2022-07-26 2022-07-26 Travel 1.2.840.1 1.2.067.292 6437 [id number] Methodi 00:00:00 00:00:[address] 3.430.2.7 0.2.7.3.698 Ho spita .3.294281 084.8 l .8 2022-07-26 2022-07-26 Outpatient ANNITA HAN [facility] [id number] [place] 00:00:00 00:00:[address] 2022-07-15 2022-07-15 [facility] Tanya Annita 1.2.840.1 [id number] Methodi 00:00:00 00:00:[address] 3.430.2.7 Hospit a .3.842868 l .8 2022-07-13 2022-07-13 [facility] Saturnino, 1.2.840.1 [id number] 2100 [id number] Methodi 00:00:00 00:00:00 Orders Nadim 46893.1.[address] 3.430.2.7 Hospit a .3.351737 l .8 2022-07-01 2022-07-02 [facility] Annita Han 1.2.840.1 [id number] Methodi 10:26:00 18:14:[address] 3.430.2.7 Hospit a .3.095260 l .8 2022-07-01 2022-07-02 [facility] ANNITA HAN [facility] 060 2100 [id number] [place] 00:00:00 00:00:[address] 2022-07-01 2022-07-01 Surgery Annita Han 1.2.840.1 [id number] Methodi 12:30:00 16:15:[address] 3.430.2.7 Hospit a .3.853543 l .8 2022-07-01 2022-07-01 Anesthesia Myrna Hurd 1.2.840.1 [id number] Methodi 11:57:00 14:25:00 Event Tra Fan 27421.1.[address] 3.430.2.7 Hospit a .3.458639 l .8 2022-07-01 2022-07-01 Travel 1.2.840.1 1.2.392.396 5355 [id number] Methodi 00:00:00 00:00:[address] 3.430.2.7 0.2.7.3.698 Ho spita .3.540905 084.8 l .8 2022-06-29 2022-06-29 Transcribe Justina, 1.2.840.1 [id number] Methodi 00:00:00 00:00:00 Orders Hanh 54436.1.[address] 3.430.2.7 Hospit a .3.293578 l .8 2022-06-28 2022-06-28 Lab MarielosmaddiMagalise 1.2.840.1 [id number] Methodi 09:25:00 09:30:[address] 3.430.2.7 Hospit a .3.053368 l .8 2022-06-28 2022-06-28 Travel 1.2.840.1 1.2.629.144 0940 [id number] Methodi 00:00:00 00:00:[address] 3.430.2.7 0.2.7.3.698 Ho spita .3.991279 084.8 l .8 2022-06-28 2022-06-28 [facility] ANNITA HAN [facility] [id number] [place] 00:00:00 00:00:[address] 2022-06-09 2022-06-09 [facility], 1.2.840.1 [id number] Methodi 15:14:46 23:59:00 Encounter Sami 83991.1.[address] 3.430.2.7 Hospit a .3.977000 l .8 2022-06-09 2022-06-09 Travel 1.2.840.1 1.2.788.446 0401 [id number] Methodi 00:00:00 00:00:[address] 3.430.2.7 0.2.7.3.698 Ho spita .3.983360 084.8 l .8 2022-06-09 2022-06-09 [facility] 1.2.840.1 [id number] 2100 [id number] Methodi 00:00:00 00:00:00 Orders Nadim 55393.1.[address] 3.430.2.7 Hospit a .3.533544 l .8 2022-06-09 2022-06-09 Outpatient SATURNINO [facility] [id number] [place] 00:00:00 00:00:00 NADIM [address] 2022-05-26 2022-05-26 [facility] Annita Han 1.2.840.1 [id number] Methodi 00:00:00 00:00:[address] 3.430.2.7 Hospit a .3.003296 l .8 2022-03-16 2022-03-16 Travel 1.2.840.1 1.2.696.681 7814 [id number] Methodi 00:00:00 00:00:[address] 3.430.2.7 0.2.7.3.698 Ho spita .3.232230 084.8 l .8 2021-12-30 2021-12-30 [facility], 1.2.840.1 [id number] 2100 [id number] Methodi 07:41:00 09:59:00 Encounter Tra Lucero 29947.1.1 861 s t 3.430.2.7 Hospit a .3.567130 l .8 2021-12-30 2021-12-30 Anesthesia Joel Hurd 1.2.840.1 [id number] Methodi 08:33:00 09:07:00 Event Octavia Ariza 28233.1.[address] 3.430.2.7 Hospit a .3.393194 l .8 2021-12-30 2021-12-30 Surgery [facility] 1.2.840.1 [id number] [id number] Methodi 08:30:00 09:00:00 Tra Lucero [address]758.1.[address] 3.430.2.7 Hospit a .3.969104 l .8 2021-12-30 2021-12-30 [facility] [id number] [place] 00:00:00 00:00:00 TRA [address] 2021-12-29 2021-12-29 Travel 1.2.840.1 1.2.577.617 0713 [id number] Methodi 00:00:00 00:00:[address] 3.430.2.7 0.2.7.3.698 Ho spita .3.654114 084.8 l .8 2021-12-27 2021-12-27 Lab Alejandra, 1.2.840.1 [id number] Methodi 14:50:00 15:00:[address] 3.430.2.7 Hospit a .3.256723 l .8 2021-12-27 2021-12-27 Outpatient [facility] [id number] [place] 00:00:00 00:00:00 TRA [address] 2021-12-27 2021-12-27 Travel 1.2.840.1 1.2.842.199 1276 [id number] Methodi 00:00:00 00:00:[address] 3.430.2.7 0.2.7.3.698 Ho spita .3.031822 084.8 l .8 2021-10-31 2021-10-31 Telephone Andressa 1.2.840.1 [id number] 2100 [id number] Methodi 00:00:00 00:00:[address] Dewi 3.430.2.7 Hospit a [place] .3.468674 l .8 2021-10-28 2021-10-28 Office Andressa 1.2.840.1 [id number] Methodi 11:30:00 14:24:51 Visit Meseret 42608.1.[address] Dewi 3.430.2.7 Hospit a [place] .3.802727 l .8 2021-10-28 2021-10-28 Outpatient BENITOSSM [facility] [id number] [place] 00:00:00 00:00:00 [address]ES[address] 2021-10-28 2021-10-28 Telephone Niall, 1.2.840.1 [id number] 2099 [id number] Methodi 00:00:00 00:00:[address] 3.430.2.7 Hospit a .3.549237 l .8 2021-10-28 2021-10-28 Telephone Marino 1.2.840.1 [id number] Methodi 00:00:00 00:00:00 pt, 21111.1.[address] Maria Ines 3.430.2.7 Hospi ta .3.107384 l .8 2021-10-28 2021-10-28 Travel 1.2.840.1 1.2.491.338 4462 [id number] Methodi 00:00:00 00:00:[address] 3.430.2.7 0.2.7.3.698 Ho spita .3.519799 084.8 l .8 2021-10-26 2021-10-26 Travel 1.2.840.1 1.2.415.622 2466 [id number] Methodi 00:00:00 00:00:[address] 3.430.2.7 0.2.7.3.698 Ho spita .3.946757 084.8 l .8 2021-10-26 2021-10-26 Telephone Andressa, 1.2.840.1 [id number] 2099 [id number] Methodi 00:00:00 00:00:[address] Dewi 3.430.2.7 Hospit a [place] .3.555599 l .8 2021-08-02 2021-08-02 Outpatient JUSTINA, [facility] [id number] [place] 00:00:00 00:00:00 HANH [address] 2021-08-02 2021-08-02 Outpatient JUSTINA, [facility] [id number] [place] 00:00:00 00:00:00 HANH [address] 2020-12-18 2020-12-18 Outpatient JUSTINA, [facility] [id number] [place] 00:00:00 00:00:00 HANH [address] 2020-12-17 2020-12-17 Outpatient JUSTINA, [facility] [id number] [place] 00:00:00 00:00:00 HANH [address] 2020-12-10 2020-12-10 Outpatient ANTOSH, [facility] [id number] [place] 00:00:00 00:00:00 MESERET [address] 2020-06-12 2020-06-12 Outpatient JUSTINA, [facility] [id number] [place] 00:00:00 00:00:00 HANH [address] 2020-06-12 2020-06-12 Outpatient JUSTINA, [facility] [id number] [place] 00:00:00 00:00:00 HANH [address] 2020-06-09 2020-06-09 Outpatient HENRIQUEZ, [facility] [id number] 057 [place] 00:00:00 00:00:00 [address] 2020-03-02 2020-03-02 Outpatient HENRIQUEZ, [facility] [id number] [place] 00:00:00 00:00:[address] 2020-02-17 2020-02-17 Outpatient HENRIQUEZ, [facility] [id number] [place] 00:00:00 00:00:[address] 2019-12-30 2019-12-30 Outpatient HENRIQUEZ, [facility] [id number] [place] 00:00:00 00:00:[address] 2018-05-10 2018-05-11 Outpatient RAMI, GIULIANO [facility] [id number] [place] 00:00:00 00:00:[address] 2016-11-29 2016-11-29 Outpatient SATURNINO, [facility] [id number] [place] 00:00:00 00:00:00 NADIM [address] Results Test Description Test Time Test Comments Results Result Comments Source POC panel 2022-08-09 15:34:01 Test Item Value Reference Range Interpretation Comme nts POC creatinine (test code = 0.6 mg/dl 0.5-0.9 Concert Pianist Name: Edy Yang [id number]) ID: [id number] POC hematocrit (test code = 44 % 37-47 4544-3) [id number] 15:34:00Estimated GFR>=90mL/min/1.73 m208/09/2022 9:34 [facility] [id number] 18:06:00 Test Item Value Reference Range Interpretation Comments POC creatinine (test 0.7 mg/dl 0.5-0.9 Operato r Name: Vickey code = 92708-6) Michael Thomas Device ID: [id number] [facility] Pre/Post [id number] 16:10:39 Test Item Value Reference Range Interpretation Comments Ventricular rate (test 68 code = 253) Atrial rate (test code = 68 255) [place] interval (test code = 172 266) QRSD interval (test code 112 = 260) QT interval (test code = 412 264) QTC interval (test code 438 = 265) P axis 1 (test code = 48 267) QRS axis 1 (test code = -36 268) T wave axis (test code = -15 270) EKG impression (test Normal sinus code = 273) rhythm-Left axis deviation-Minimal voltage criteria for LVH, may be normal variant-Electronicall y Signed By Hunter Matamoros MD ([id number]) on 07/01/2022 11:10:37 AM [facility] qualitative [id number] 18:33:13 Test Item Value Reference Interpretation Comments Range Interpretation Negative results do (test code = not preclude COVID-19 [id number]) infection and should not be used asthe sole basis for treatment or other patient management decisions. Negativeresults must be combined with clinical observations, patient history, andepidemiological information. COVID-19 Not-Detected Not-Detected DISCLAIMER:This qualitative RT-PCR test was result (test code performed using = 30340-0) the [employer] [facility] SARS-CoV-2 Assan y ([employer]ufenqi). This assay is available for i n [facility] diagnosti c use under Food and Drug Administration (FDA) Emergency Use Authorizati on (EUA) and has been verified f or clinical use by the [facility]. Information on the FDA policy for diagnostic tests for coronavirus disease- 2019 i s available at:https://www. fd a.gov/medical-d ev ices/emergency- si tuations-medica l- devices/faqs-di ag nostic-testing- sa rs-cov-2It is critical that health care providers and patients review the applicable fact sheet(s) i n interpreting or understanding t he test results th at are available upon request.METHODO LO GY:This assay utilizes [employer] ts for nucleic aci d extraction, amplification, and real-time reverse criminalist polymerase grady n reaction. COVID-19 See link below for PDF Case Number: qualitative RT-PCR Lab Report [id number] (test code = 7070) [facility] [Presence] in Respiratory specimen by LORE with probe [id number] 13:33:13 Test Item Value Reference Range Interpretation Comments SARS-CoV-2 (COVID-19) RNA Not detected [Presence] in Respiratory specimen by LORE with probe detection (test code = 99206-4) Whether patient is employed in a Unknown healthcare setting (test code = 07854-7) Whether the patient has symptoms Unknown related to condition of interest (test code = 01817-1) Whether the patient was Unknown hospitalized for condition of interest (test code = 53676-4) Whether the patient was admitted Unknown to intensive care unit (ICU) for condition of interest (test code = 45205-0) Whether patient resides in a Unknown congregate care setting (test code = 26281-4) status (test code = Unknown 11831-0) Date and time of symptom onset Unknown (test code = 82778-8) [facility] [id number] 22:40:27 Test Item Value Reference Range Interpretation Comments Case number (test code = [id number]) Surgical pathology See link below for report (test code = PDF Lab Report [id number]) Result status (test code This is Final Report = [id number]) for [id number] Christian JhvwkwvtOJCX-HwB-5 (COVID-19) RNA [Presence] in Respiratory specimen by LORE with probe [id number] 21:32:37 Test Item Value Reference Range Interpretation Comments SARS-CoV-2 (COVID-19) RNA Not detected [Presence] in Respiratory specimen by LORE with probe detection (test code = 65726-2) Whether patient is employed in a Unknown healthcare setting (test code = 72460-8) Whether the patient has symptoms Unknown related to condition of interest (test code = 80073-8) Whether the patient was Unknown hospitalized for condition of interest (test code = 01140-4) Whether the patient was admitted Unknown to intensive care unit (ICU) for condition of interest (test code = 51580-7) Whether patient resides in a Unknown congregate care setting (test code = 80671-5) status (test code = Unknown 43039-2) Date and time of symptom onset Unknown (test code = 87715-8) [facility] [id number] 18:38:00 Test Item Value Reference Interpretation Comments Range Urine culture (test SEE NOTE A CULTURE , URINE, code = 630-4) ROUTINE Micro Number: [id number] Test Status: Fi nal Specimen Source : Urine Specimen Quality: Adequa te Result: Greater than 100,000 CF U/mL of Escherichia coli E.coli - INT CELE AMOX/CLAVULANAT E S <=2 AMPICILLIN S 4 AMP/SULBACTAM S <=2 CEFAZOLIN NR <= 4 2 CEFEPIME S <=1 CEFTRIAXONE S < =1 CIPROFLOXACIN S <=0.25 GENTAMIC IN S <=1 IMIPENEM S <=0.25 LEVOFLOX ACIN S <=0.12 NITROFURANTOIN S <=16 PIP/TAZOBA CTAM S <=4 TOBRAMYCI N S <=1 TRIMETHOPRIM/CUEVA LFA S <=20 S=Susceptible I=Intermediate R=Resistant * = Not TestedNR = Not Reported NN = See Therapy Comment s THERAPY COMMENT S Note 1: For infections othe r than uncomplica maddison UTI caused by E . coli, K. pneumo niae or P. mirabilis : Cefazolin is resistant if MD C > or = 8 mcg/mL. (Distinguishing susceptible tammy gina intermediate fo r isolates with M IC < or = 4 mcg/mL requires additi onal testing.) Note 2: For uncomplicat ed UTI caused by E . coli, K. pneumo niae or P. mirabilis : Cefazolin is susceptible if CELE <32 mcg/mL and predicts susceptible to the oral agents cefaclor, cefdi alex, cefpodoxime, cefprozil, cefuroxime, cephalexin and loracarbef. RAC (test code = Performing RAC) Organization Information: Site ID: [id number] Name: [facility] Address: [address] [place] [id number] Director: Wesley Saini Lab Interpretation Abnormal (test code = 13336-8) [facility] urinalysis [id number] 17:47:00 Test Item Value Reference Range Interpretation Comments Color urine, POC (test Yellow code = 1779707) Clarity urine, POC (test Clear code = 6137487) Glucose urine, POC (test Negative Negative code = 5566498) Bilirubin urine, POC Negative Negative (test code = 6369619) Ketones urine, POC (test Negative Negative code = 8549144) Specific gravity urine, </=1.005 1.005-1.030 POC (test code = 7447464) Blood urine, POC (test Moderate Negative A code = 3521646) pH urine, POC (test code 5.0 See_Comment [A utomated message] = 5781751) The system [employer] generated this result transmitted ref erence range: 5.0, 5.5 , 6.0, 6.5, 7.0, 7.5, 8.0, 8.5. The refere nce range was not u sed to interpret this result as normal/abnor mal. Protein urine, POC (test Negative Negative code = 8540040) Urobilinogen urine, POC <2.0 <=2.0 (test code = 1280332) Nitrite urine, POC (test Positive Negative A code = 1722008) Leukocyte esterase Moderate Negative A urine, POC (test code = 2107285) Lab Interpretation (test Abnormal code = 94987-6) [facility] post void [id number] 17:47:00 Test Item Value Reference Range Interpretation Comments Total volume, urine (test code = 2338) 0 [facility]
--- NOTE | 2022-10-18 03:40 | ER ---
Nurse's Notes [facility] Name: Tabitha Combs Age: 66 yrs Sex: Female : 1955 Arrival Date: 10/18/2022 Time: 03:05 Bed 7 Private MD: Diagnosis: Chest pain, unspecified;Hypokalemia;Systolic (congestive) heart failure;Vomiting Presentation: 10/18 03:20 Chief complaint: Patient states: chest pain mid sternal non radiating woke her from ll3 sleep. Ebola Screen: Patient negative for fever greater than or equal to 101.5 degrees Fahrenheit, and additional compatible Ebola Virus Disease symptoms. 03:20 Method Of Arrival: Ambulatory ll3 05:10 Initial Sepsis Screen: Does the patient meet any 2 criteria? No. Patient's initial vc1 sepsis screen is negative. Does the patient have a suspected source of infection? No. Patient's initial sepsis screen is negative. Risk Assessment: Do you want to hurt yourself or someone else? Patient reports no desire to harm self or others. Onset of symptoms was October 18, 2022. 05:10 Acuity: RUBIN 2 vc1 Triage Assessment: 03:26 General: Appears in no apparent distress. comfortable, Behavior is calm, cooperative. ll3 Pain: Complains of pain in mid-sternal area Pain does not radiate. Cardiovascular: Rhythm is sinus rhythm with unifocal PVCs Chest pain is described as mild. Historical: - Allergies: 03:27 Codeine; ll3 - Home Meds: 03:27 sotalol 80 mg Oral tab 1 tab 2 times per day for Life-Threatening Ventricular ll3 Tachycardia [Active]; valsartan 40 mg Oral tab 1 tab 2 times per day for Hypertension [Active]; xaralto [Active]; 03:30 Spironolactone Oral [Active]; Aspirin EC Oral [Active]; ll3 - PMHx: 03:27 Atrial Fib; Hyperlipidemia; Hypertension; SVT; ll3 - PSHx: 03:27 pacemker; ll3 - Immunization history:: Adult Immunizations up to date. - Social history:: Smoking status: Patient denies any tobacco usage or history of. Screenin:09 [facility] ED Fall Risk Assessment (Adult) History of falling in the last 3 months, vc1 including since admission No falls in past 3 months (0 pts) Confusion or Disorientation No (0 pts) Intoxicated or Sedated No (0 pts) Impaired Gait No (0 pts) Mobility Assist Device Used No (0 pt) Altered Elimination No (0 pt) Score/Fall Risk Level 0 - 2 = Low Risk Oriented to surroundings, Maintained a safe environment, Educated pt \T\ family on fall prevention, incl call for assistance when getting out of bed. Abuse screen: Denies threats or abuse. Nutritional screening: No deficits noted. Tuberculosis screening: No symptoms or risk factors identified. Assessment: 05:00 General: Appears uncomfortable, Behavior is calm, cooperative. Pain: Complains of pain ll3 in chest Pain does not radiate. Pain currently is 6 out of 10 on a pain scale. Pain began 2-3 days ago. Is continuous. 05:00 Neuro: Level of Consciousness is awake, alert, obeys commands, Oriented to person, ll3 place, time, situation. Cardiovascular: Patient's skin is warm and dry. Rhythm is sinus rhythm. Respiratory: Reports shortness of breath Respiratory effort is even, unlabored, Respiratory pattern is regular, symmetrical. GI: Reports nausea. Derm: Skin is pink, warm \T\ dry. 06:21 Reassessment: Pt c/o N/V, ERP notified, medicated as ordered, tolerated well. ll3 Vital Signs: 03:38 BP 144 / 118; Pulse 64; Resp 18; Temp 98.2; Pulse Ox 98% on R/A; ll3 04:33 BP 155 / 90; Pulse 61; Resp 14; Pulse Ox 100% on 2 lpm NC; ll3 05:30 BP 151 / 90; Pulse 71; Resp 13; Pulse Ox 99% on R/A; ll3 ED Course: 03:05 Patient arrived in ED. jj6 03:07 Santy Rivera MD is Attending Physician. flakito 03:20 EKG completed in triage. Results shown to . ll3 03:38 Vinnie Horn MD is Hospitalizing Provider. flakito 05:09 Malia Cohen, SAVANNAH is Primary Nurse. vc1 05:10 Triage completed. vc1 05:10 Arm band placed on right wrist. vc1 05:10 Patient has correct armband on for positive identification. Bed in low position. Call vc1 light in reach. Client placed on continuous cardiac and pulse oximetry monitoring. NIBP monitoring applied. 05:11 Patient maintains SpO2 saturation greater than 95% on room air. vc1 07:00 Patient admitted, IV remains in place. sg5 09:00 Primary Nurse role handed off by Malia Cohen RN jl7 15:15 Annie Mcallister RN is Primary Nurse. sg5 Administered Medications: 03:32 CANCELLED (Duplicate Order): Aspirin Chewable Tablet 324 mg PO once; 81 mg tablets x 4 flakito 04:27 Drug: Zofran (Ondansetron) 4 mg Route: IVP; Site: left antecubital; ll3 04:30 Drug: Pepcid (famotidine) 20 mg Route: IVP; Site: left antecubital; ll3 04:35 Drug: fentaNYL (PF) 100 mcg Route: IVP; Site: left antecubital; ll3 04:41 Not Given (Duplicate Order): fentaNYL (PF) 25 mcg IVP once flakito 05:04 Drug: Zofran (Ondansetron) 2 mg Route: IVP; Site: left antecubital; ll3 05:57 Drug: Lasix (furosemide) 20 mg Route: IVP; Site: left antecubital; ll3 05:57 Drug: NS 0.9% with KCl 20 mEq/L 1000 ml Route: IV; Rate: 72 ml/hr; Site: left ll3 antecubital; 14:52 Follow up: Response: No adverse reaction; IV Status: Completed infusion; IV Intake: sg5 500ml 06:16 Drug: Phenergan (promethazine) 12.5 mg Route: IVP; Site: left antecubital; ll3 Medication: 05:11 VIS not applicable for this client. vc1 Intake: 14:52 IV: 500ml; Total: 500ml. sg5 Outcome: 03:40 Decision to Hospitalize by Provider. flakito 07:00 Admitted to ER Hold. Please see [facility] for further documentation. sg5 07:00 Condition: good sg5 07:00 Instructed on the need for admit, Demonstrated understanding of instructions. 15:17 Patient left the ED. sg5 Signatures: Santy Rivera MD MD cha Leal, Jahala, RN RN jl7 Maria Ines Mackey6 Eliza Michaud RN RN ll3 Malia Cohen RN RN vc1 Annie Mcallister, RN RN sg5 Corrections: (The following items were deleted from the chart) : 06:19 General: Appears uncomfortable, Behavior is calm, cooperative, ll3 ll3 : 06:19 Pain: Complains of pain in chest Pain does not radiate. Pain currently is 6 out ll3 of 10 on a pain scale. Pain began 2-3 days ago. Is continuous, ll3
--- NOTE | 2022-10-18 03:40 | EDPHYS ---
Physician Documentation [facility] Name: Tabitha Combs Age: 66 yrs Sex: Female : 1955 Arrival Date: 10/18/2022 Time: 03:05 Bed 7 Private MD: ED Physician Santy Rivera HPI: 10/18 03:32 This 66 yrs old Female presents to ER via Ambulatory with complaints of Chest flakito Pain, High Blood Pressure. Historical: - Allergies: 03:27 Codeine; ll3 - Home Meds: 03:27 sotalol 80 mg Oral tab 1 tab 2 times per day for Life-Threatening Ventricular ll3 Tachycardia [Active]; valsartan 40 mg Oral tab 1 tab 2 times per day for Hypertension [Active]; xaralto [Active]; 03:30 Spironolactone Oral [Active]; Aspirin EC Oral [Active]; ll3 - PMHx: 03:27 Atrial Fib; Hyperlipidemia; Hypertension; SVT; ll3 - PSHx: 03:27 pacemker; ll3 - Immunization history:: Adult Immunizations up to date. - Social history:: Smoking status: Patient denies any tobacco usage or history of. ROS: 03:33 Constitutional: Negative for fever, chills, and weight loss, Eyes: Negative for injury, flakito pain, redness, and discharge, ENT: Negative for injury, pain, and discharge, Neck: Negative for injury, pain, and swelling, Respiratory: Negative for shortness of breath, cough, wheezing, and pleuritic chest pain, Abdomen/GI: Negative for abdominal pain, nausea, vomiting, diarrhea, and constipation, Back: Negative for injury and pain, : Negative for injury, bleeding, discharge, and swelling, MS/Extremity: Negative for injury and deformity, Skin: Negative for injury, rash, and discoloration, Neuro: Negative for headache, weakness, numbness, tingling, and seizure, Psych: Negative for depression, anxiety, suicide ideation, homicidal ideation, and hallucinations, Allergy/Immunology: Negative for hives, rash, and allergies, Endocrine: Negative for neck swelling, polydipsia, polyuria, polyphagia, and marked weight changes, Hematologic/Lymphatic: Negative for swollen nodes, abnormal bleeding, and unusual bruising. 03:33 Cardiovascular: Positive for chest pain, of the chest. Exam: 03:33 Constitutional: This is a well developed, well nourished patient who is awake, alert, flakito and in no acute distress. Head/Face: Normocephalic, atraumatic. Eyes: Pupils equal round and reactive to light, extra-ocular motions intact. Lids and lashes normal. Conjunctiva and sclera are non-icteric and not injected. Cornea within normal limits. Periorbital areas with no swelling, redness, or edema. ENT: Nares patent. No nasal discharge, no septal abnormalities noted. Tympanic membranes are normal and external auditory canals are clear. Oropharynx with no redness, swelling, or masses, exudates, or evidence of obstruction, uvula midline. Mucous membranes moist. Neck: Trachea midline, no thyromegaly or masses palpated, and no cervical lymphadenopathy. Supple, full range of motion without nuchal rigidity, or vertebral point tenderness. No Meningismus. Chest/axilla: Normal chest wall appearance and motion. Nontender with no deformity. No lesions are appreciated. Cardiovascular: Regular rate and rhythm with a normal S1 and S2. No gallops, murmurs, or rubs. Normal PMI, no JVD. No pulse deficits. Respiratory: Lungs have equal breath sounds bilaterally, clear to auscultation and percussion. No rales, rhonchi or wheezes noted. No increased work of breathing, no retractions or nasal flaring. Abdomen/GI: Soft, non-tender, with normal bowel sounds. No distension or tympany. No guarding or rebound. No evidence of tenderness throughout. Back: No spinal tenderness. No costovertebral tenderness. Full range of motion. Female : Normal external genitalia. Skin: Warm, dry with normal turgor. Normal color with no rashes, no lesions, and no evidence of cellulitis. MS/ Extremity: Pulses equal, no cyanosis. Neurovascular intact. Full, normal range of motion. Neuro: Awake and alert, GCS 15, oriented to person, place, time, and situation. Cranial nerves II-XII grossly intact. Motor strength 5/5 in all extremities. Sensory grossly intact. Cerebellar exam normal. Normal gait. Psych: Awake, alert, with orientation to person, place and time. Behavior, mood, and affect are within normal limits. 03:33 ECG was reviewed by the Attending Physician. Vital Signs: 03:38 BP 144 / 118; Pulse 64; Resp 18; Temp 98.2; Pulse Ox 98% on R/A; ll3 04:33 BP 155 / 90; Pulse 61; Resp 14; Pulse Ox 100% on 2 lpm NC; ll3 05:30 BP 151 / 90; Pulse 71; Resp 13; Pulse Ox 99% on R/A; ll3 MDM: 03:07 Patient medically screened. flakito 03:36 Differential diagnosis: abnormal EKG, acute myocardial infarction, acute pericarditis, flakito anxiety, coronary artery disease chest wall pain, Cholelithiasis costochondritis, esophagitis, hiatal hernia, pancreatitis, pulmonary embolus, thoracic aortic disection. HEART Score: History: Slightly Suspicious (0), ECG: Non specific repolarization disturbance / LBTB / PM (1), Age: > or = 65 years (2), Risk Factors: > or = 3 Risk factors for atherosclerotic disease (2), [Hypercholesterolemia] [Hypertension] [+ Family HX] Troponin: < or = 1 x Normal Limit (0). The patient was not given aspirin in the Emergency Department. Not indicated due to patient's past medical history. GABY Risk Score: 1 - patient's age is greater or equal to 65 years, 1 - Three or more CAD risk factors, TOTAL SCORE = 2. Data reviewed: vital signs, nurses notes, lab test result(s), EKG, radiologic studies, plain films. Consideration of Admission/Observation Patient was admitted/placed on observation. Escalation of care including admission/observation considered. 10/18 03:13 Order name: Basic Metabolic Panel 10/18 03:13 Order name: CBC with Diff 10/18 03:13 Order name: LFT's 10/18 03:13 Order name: Magnesium 10/18 03:13 Order name: NT PRO-BNP 10/18 03:13 Order name: PT-INR 10/18 03:13 Order name: Troponin HS 10/18 03:13 Order name: Lipase 10/18 03:13 Order name: SARS RAPID 10/18 04:33 Order name: SARS-COV-2 Antigen Rapid; Complete Time: 04:41 EDMS 10/18 04:42 Order name: Urine Dipstick-Ancillary; Complete Time: 04:42 EDMS 10/18 04:46 Order name: Protime (+INR); Complete Time: 04:50 EDMS 10/18 04:47 Order name: CBC with Automated Diff; Complete Time: 04:50 EDMS 10/18 05:01 Order name: Basic Metabolic Panel; Complete Time: 05:24 EDNY 10/18 03:13 Order name: XRAY Chest (1 view) [facility] 10/18 05:01 Order name: Liver (Hepatic) Function; Complete Time: 05:24 EDMS 10/18 05:01 Order name: Troponin High Sensitivity; Complete Time: 05:24 EDMS 10/18 05:01 Order name: NT PRO-BNP; Complete Time: 05:24 EDMS 10/18 05:01 Order name: Magnesium; Complete Time: 05:24 EDMS 10/18 05:01 Order name: Lipase; Complete Time: 05:24 EDNY 10/18 09:36 Order name: Troponin High Sensitivity [facility] 10/18 03:13 Order name: EKG; Complete Time: 03:14 [facility] 10/18 03:13 Order name: Cardiac monitoring; Complete Time: 04:31 [facility] 10/18 03:13 Order name: EKG - Nurse/Tech; Complete Time: 03:59 [facility] 10/18 03:13 Order name: IV Saline Lock; Complete Time: 04:31 [facility] 10/18 03:13 Order name: Labs collected and sent; Complete Time: 04:32 [facility] 10/18 03:13 Order name: O2 Per Protocol; Complete Time: 04:32 [facility] 10/18 03:13 Order name: O2 Sat Monitoring; Complete Time: 04:32 [facility] 10/18 03:13 Order name: Urine Dipstick-Ancillary (obtain specimen); Complete Time: 04:41 [facility] EC:33 Rate is 66 beats/min. Rhythm is regular. QRS [place] is Normal. [place] interval is normal. QRS flakito interval is normal. QT interval is normal. No Q waves. T waves are Normal. ST Segment is depressed in leads II, III, aVF. Clinical impression: LVH and No evidence of ischemia. Interpreted by me. Reviewed by me. Administered Medications: 03:32 CANCELLED (Duplicate Order): Aspirin Chewable Tablet 324 mg PO once; 81 mg tablets x 4 flakito 04:27 Drug: Zofran (Ondansetron) 4 mg Route: IVP; Site: left antecubital; ll3 04:30 Drug: Pepcid (famotidine) 20 mg Route: IVP; Site: left antecubital; ll3 04:35 Drug: fentaNYL (PF) 100 mcg Route: IVP; Site: left antecubital; ll3 04:41 Not Given (Duplicate Order): fentaNYL (PF) 25 mcg IVP once flakito 05:04 Drug: Zofran (Ondansetron) 2 mg Route: IVP; Site: left antecubital; ll3 05:57 Drug: Lasix (furosemide) 20 mg Route: IVP; Site: left antecubital; ll3 05:57 Drug: NS 0.9% with KCl 20 mEq/L 1000 ml Route: IV; Rate: 72 ml/hr; Site: left ll3 antecubital; 14:52 Follow up: Response: No adverse reaction; IV Status: Completed infusion; IV Intake: sg5 500ml 06:16 Drug: Phenergan (promethazine) 12.5 mg Route: IVP; Site: left antecubital; ll3 Disposition Summary: 10/18/22 03:40 Hospitalization Ordered Hospitalization Status: Observation flakito Provider: Vinnie Horn cha Condition: Fair flakito Problem: new flakito Symptoms: have improved flakito Bed/Room Type: Standard [facility] Location: [facility] ER HOLD(10/18/22 14:44) jl7 Room Assignment: ERHOLD-(10/18/22 14:44) jl7 Diagnosis - Chest pain, unspecified flakito - Hypokalemia flakito - Systolic (congestive) heart failure flkaito - Vomiting flakito Forms: - Medication Reconciliation Form flakito - SBAR form flakito Signatures: Dispatcher [employer] EDNY Isabelle Fowler RN RN mw Woody, Diana RN Santy Baumann MD MD cha Leal, Jahala RN RN jl7 Eliza Michaud RN RN ll3 Annie Mcallister RN sg5 Corrections: (The following items were deleted from the chart) 03:32 03:13 Aspirin Chewable Tablet 324 mg PO once; 81 mg tablets x 4 ordered. flakito flakito 05:21 03:40 Telemetry/MedSurg (observation) flakito 05:21 03:40 flakito 13:08 05:21 [facility] ER HOLD [facility] 13:08 05:21 ERHOLD- [facility] 13:19 13:08 405 dw 14:44 13:08 Telemetry/MedSurnichelle (observation) dw jl7 14:44 13:19 404 dw jl7
[2022-10-18] MEDS ORDERED: FAMOTIDINE 20 MG/2 ML VIAL IV ONE (04:06)
[2022-10-18] MEDS ORDERED: FENTANYL CITR 100 MCG/2 ML ONE (04:06)
[2022-10-18] MEDS ORDERED: ONDANSETRON 4 MG/2 ML VIAL ONE ×2 (04:06→05:04)
[2022-10-18 04:32] LABS: SARS-CoV-2 Antigen Rapid Res Negative (Negative)
[2022-10-18 04:42] LABS: Urine Blood Negative (Negative); Urine Glucose Negative (Negative); Urine Protein Negative (Negative); Urine Specific Gravity 1.015 (1.005-1.030)
[2022-10-18 04:45] LABS: Absolute Lymphocytes (CBC) 2.1 K/uL (0.7-4.9); Hematocrit 42.7 % (36.0-45.0); Lymphocytes % 28.5 % (15.3-44.8); MCV 89.5 fL (80-100); MPV 9.4 fL (7.6-11.3); Protime INR 1.11; RBC Red Blood Cell Count 4.78 M/uL (3.86-4.86)
[2022-10-18 05:00] LABS: Albumin 3.8 g/dL (3.4-5.0); Bilirubin Direct 0.1 mg/dL (0-0.2); Bilirubin Total 0.4 mg/dL (0.2-1.0); Magnesium 2.2 mg/dL (1.6-2.4); Potassium 3.4 mmol/L (3.5-5.1); Protein, Total 7.6 g/dL (6.4-8.2); Troponin High Sensitivity 7.9 pg/mL (<58.9)
[2022-10-18] MEDS ORDERED: FUROSEMIDE 20 MG/ 2ML VIAL ONE (05:47)
[2022-10-18] MEDS ORDERED: NS KCL 20MEQ 1,000 ML IV ONE (05:47)
[2022-10-18] MEDS ORDERED: PROMETHAZINE INJ 25 MG/ML AMP ONE (06:11)
[2022-10-18] MEDS ORDERED: FENTANYL CITR 100 MCG/2 ML IV PRN (07:15)
[2022-10-18] MEDS ORDERED: SOTALOL HCL 80 MG TAB PO SCH (07:15)
[2022-10-18] MEDS ORDERED: ONDANSETRON 4 MG/2 ML VIAL IV PRN (07:15)
[2022-10-18] MEDS ORDERED: ACETAMINOPHEN 325 MG TABLET PO PRN (07:15)
[2022-10-18] MEDS ORDERED: ASPIRIN EC 81 MG TAB PO ONE (07:38)
[2022-10-18] MEDS ORDERED: SOTALOL HCL 80 MG TAB ONE (07:39)
[2022-10-18] MEDS ORDERED: FAMOTIDINE 20 MG/2 ML VIAL IV SCH (09:00)
[2022-10-18] MEDS ORDERED: ASPIRIN EC 81 MG TAB PO SCH (09:00)
[2022-10-18] MEDS ORDERED: SPIRONOLACTONE 25 MG TABLET PO SCH (09:00)
[2022-10-18 09:07] VITALS: O2SAT 93
[2022-10-18 11:02] VITALS: BMI 33.2
[2022-10-18 11:07] VITALS: BP 158/108; TEMP 98.6
[2022-10-18] MEDS ORDERED: RIVAROXABAN 20 MG TABLET PO SCH (17:00)
--- NOTE | 2022-10-18 17:09 | EKG ---
Test Date: 2022-10-18 Test Time: 03:21:35 Cooker Helper: WILMA MEASUREMENT RESULTS: Intervals: Rate: 66 IA: 184 QRSD: 118 QT: 480 QTc: 503 [place]: P: 80 IA: 184 QRS: -26 T: -18 INTERPRETIVE STATEMENTS: Normal sinus rhythm Left ventricular hypertrophy with QRS widening Nonspecific ST and T wave abnormality Prolonged QT Abnormal ECG Compared to ECG 06/22/2021 06:53:01 Left ventricular hypertrophy now present Prolonged QT interval now present Left-axis deviation no longer present Possible ischemia no longer present ST (T wave) deviation still present Electronically Signed On 10-18-22 17:08:14 DATABASE PROGRAMMER by Ivan Swanson
--- NOTE | 2022-10-18 17:09 | EKG ---
Test Date: 2022-10-18 Test Time: 03:21:08 Gas Meter Repair Supervisor: WILMA MEASUREMENT RESULTS: Intervals: Rate: 66 [place]: 182 QRSD: 122 QT: 482 QTc: 505 [place]: P: 69 [place]: 182 QRS: -21 T: -20 INTERPRETIVE STATEMENTS: Normal sinus rhythm Left ventricular hypertrophy with QRS widening Nonspecific ST and T wave abnormality Abnormal ECG Compared to ECG 06/22/2021 06:53:01 Left ventricular hypertrophy now present Left-axis deviation no longer present Possible ischemia no longer present ST (T wave) deviation still present Electronically Signed On 10-18-22 17:08:18 HOME BUILDER by Ivan Swanson
--- NOTE | 2022-10-18 20:33 | RAD REPORT ---
EXAM DESCRIPTION: RAD - Chest Single View - 10/18/2022 4:57 am CLINICAL HISTORY: The patient is 66 years old and is Female; CHEST PAIN [facility] MAIN TECHNIQUE: Frontal view of the chest. COMPARISON: No relevant prior studies available. FINDINGS: LUNGS: Unremarkable. No consolidation. PLEURAL SPACE: No pleural effusion. No pneumothorax. HEART: See below. MEDIASTINUM: Prominence of the cardiomediastinal silhouette, likely exaggerated secondary to garrett ble technique, lordotic positioning, and patient body habitus. BONES/JOINTS: Unremarkable. TUBES, LINES AND DEVICES: Cardiac stimulator device demonstrated over the left chest with leads te rminating over the right atria and right ventricle. IMPRESSION: No acute findings in the chest. Electronically signed by: Kulwinder Graham MD 10/18/2022 5:47 AM TEACHER AIDE Due to temporary technical issues with the PACS/Fluency reporting system, reports are being signed by the in house radiologists without review as a courtesy to insure prompt reporting. The interpreting radiologist is fully responsible for the content of the report.
[2022-10-18] MEDS ORDERED: FAMOTIDINE 20 MG TAB PO SCH (21:00)
--- NOTE | 2022-10-18 21:58 | P.SSS ---
Patient History Date of Service: 10/18/22 Reason for admission: CHEST PAIN History of Present Illness: LOLIS FIGUEROA HAS HAD HISTORY OF A FIB AND HTN. SHE HAS HAD ABLATION BEFORE. SHE COMES WITH CHEST PAIN ON RIGHT SIDE OF STERNUM. NOW SHE IS PAINFREE AND ASYMPTOMATIC. SHE HAD NORMAL CARDIAC ENZYMES AND WILL DO ECHO AT DR. CASSIDY'S OFFICE. SHE HAD NORMAL CATH A YEAR AGO AND NORMAL MRA OF HEART LAST MONTH IN [place]. Allergies codeine Allergy (Verified 06/22/21 10:17) Nausea/Vomiting Home medications list reviewed: No Home Medications: Amlodipine [Norvasc*] 2.5 mg PO DAILY #90 tab 06/22/21 Valsartan/Hydrochlorothiazide [Valsartan-Hctz 80-12.5 mg Tab] 1 each PO DAILY 06/22/21 - Past Medical/Surgical History Has patient received pneumonia vaccine in the past: Yes Diabetic: No -: A FIB -: DEBRILLATOR PLACED DR ROSARIO 2017 -: MVP -: HTN -: ANXIETY DISORDER -: DEFIB. - Social History Smoking Status: Never smoker Review of Systems 10-point ROS is otherwise unremarkable Physical Examination - Vital Signs Temperature: 98.6 F Blood Pressure: 158/108 Pulse: 66 Respirations: 15 Pulse Ox (%): 94 - Physical Exam General: Alert, In no apparent distress HEENT: Atraumatic, PERRLA, Mucous membr. moist/pink, EOMI, Sclerae nonicteric Neck: Supple, 2+ carotid pulse no bruit, No LAD, Without JVD or thyroid abnormality Respiratory: Clear to auscultation bilaterally, Normal air movement Cardiovascular: Regular rate/rhythm, Normal S1 S2 Gastrointestinal: Normal bowel sounds, No tenderness Musculoskeletal: No tenderness Integumentary: No rashes Neurological: Normal gait, Normal speech, Normal strength at 5/5 x4 extr, Normal tone, Normal affect Lymphatics: No axilla or inguinal lymphadenopathy - Diagnosis (Problem(s)) (1) Atypical chest pain Status: Acute Plan: ROCCO IS ANXIOUIS LADY AND HAS HAD NORMAL CATH RECENTLY. SHE HAS ATYPICAL PAIN SHE WILL FU WITH DR. CASSIDY HER PMH IS FOLLOWING. 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 BID, SHE TAKES ONE DAILY NOW SHE COULD NOT TAKE STEROIDS. 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 CATH NEG IN MARCH. [address] [Z95.810 - Disposition Disposition: [facility] HOME/HOME HEALTH CARE Condition: GOOD
== END 2022-10-18 15:14 | disposition home health service (06) ==
LOC: ER 03:00 → ERHOLD 03:43
PROVIDERS: ADMIT Internal Medicine; ATTEND Internal Medicine
DX: R07.89 Other chest pain (principal); I48.91 Unspecified atrial fibrillation; I10 Essential (primary) hypertension; E87.6 Hypokalemia; I50.20 Unspecified systolic (congestive) heart failure; I34.1 Nonrheumatic mitral (valve) prolapse; G43.909 Migraine, unspecified, not intractable, without status migrainosus; Z95.810 Presence of automatic (implantable) cardiac defibrillator; Z88.6 Allergy status to analgesic agent; Z86.16 Personal history of COVID-19; Z95.0 Presence of cardiac pacemaker; Z20.822 Contact with and (suspected) exposure to COVID-19
CPT/HCPCS: 93005 ×2; 85025; 80048; 36415; 83735; 85610; 80076; 81003; 84484 ×2; 83690; 83880; 71045; 87811; J1940; J2550; J3010; J2405 ×2; J3480; G0378

== ENCOUNTER 2023-02-25 11:18 | Observation (INO) | payer OTHER ==
--- OUTSIDE RECORDS SUMMARY | 2023-02-25 11:22 | XMS REPORT | Continuity of Care Document ---
:[address] [facility] t Address [address] [facility]. [address] [place] [address] Care Team Providers Name Role Phone Asked, No Pcp Primary Care Physician Unavailable Sami Matamoros MD Attending Clinician Vinnie Horn MD Attending Clinician Annita Han MD Attending Clinician Myrna Hurd MD Attending Clinician Tra Fan Attending Clinician Tra Roberts MD Attending Clinician Joel Hurd MD Attending Clinician Octavia Ariza NP Attending Clinician Andressa HOLBROOK, Meseret Soto Attending Clinician [phone] Niall NUÑEZ, Bernarda Attending Clinician Unavailable Maria Ines Buck Attending [...] fibrillati fibrillati 00:00: Ho spita on on l VSD VSD Disease Active Methodi (ventricul [...] erosis in erosis in 00:00: Hosp tatiana tanana tanana 00 l artery artery Disorder Disorder Disease Active Metho di of cardiac of cardiac [address] function function 00:00: Hospit a 00 l Abnormal Abnormal Disease Active Metho di electrocar electrocar [address] diogram diogram 00:00: Hospita 00 l Palpitatio Palpitatio Disease Active M ethodi ns ns 3-17 st 00:00: Hospita 00 l 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 supraventr [address] icular icular 00:00: Hospita tachycardi tachycardi 00 l a a 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 [address] st r r 00:00: Hospita tachycardi tachycardi 00 l a a Extrasysto Extrasysto Disease Active M ethodi le le 3-17 st 00:00: Hospita 00 l Allergies, Adverse [...] Date Source Natural brother Heart disease Method [facility] Natural brother Hyperlipidemia [facility] Natural brother Hypertension [facility] Natural brother Learning disabilities [facility] Natural father Alzheimer's disease [facility] Natural father Breast cancer [facility] father Cancer [facility] father Dementia [facility] Natural father Depression [facility] Natural father Hearing loss [facility] Natural father Heart disease [facility] Natural father Hemangiomas [facility] Natural father Hyperlipidemia Method [facility] Natural father Hypertension [facility] Maternal Cancer [facility] [place] Maternal Heart disease [facility] Natural mother Alzheimer's disease [facility] Natural mother Breast cancer [facility] mother Cancer [facility] mother Dementia [facility] Natural mother Heart disease [facility] Natural mother Hyperlipidemia Method [facility] Natural mother Hypertension [facility] Paternal Asthma [facility] [place] Paternal Cancer [facility] [place] Paternal Cancer [facility] Paternal Heart disease [facility] M[facility]ar[facility] Social History Social Habit Start Date Stop Date Quantity Comments Source Gender identity 2019-12-30 Identifies as Method ist 14:34:31 female gender [facility] (finding) Sexual orientation Method [facility] Alcohol intake 2022-07-05 2022-07-05 Current [facility] 00:[facility]00 non-drinker of Hospital alcohol (finding) History of Social 2022-07-05 2022-07-[address] function 00:00:00 00:00:00 Hospital Tobacco use and 2016-03-21 2016-03-21 Smokeless tobacco [facility] exposure 00:00:00 00:00:00 non-user Hospital Sex Assigned At [birth year] F [facility] 00:[facility] Smoking Status Start Date Stop Date Source Never smoked tobacco [facility] Medications Ordered Filled Start Stop [...] by mouth l tablet every other day. rivaroxaban 2021-09 Yes 20mg Take 1 Meth [...] 44 daily. l (2,000 unit) capsule capsule cholecalcif 2021-09 Yes 2000U QD Take 2,000 Methodi jamshid, 0-[address] vitamin D3, 18:19: mouth Hospi ta 50 mcg 44 daily. l (2,000 unit) capsule capsule pantoprazol 2021-09- No 40mg Q.5D Take 1 Met hodi e 0-02 08- tablet (40 st (PROTONIX) 00:00: 05:59 mg total) H ospita 40 MG EC 00 :00 by mouth 2 l tablet (two) times a day for 30 days. colchicine 2021-09- No .6mg Q.5D Take 1 Meth reshma 0.6 mg 0-29 - tablet st tablet 00:00: 05:59 (0.6 mg Hospita 00 :00 total) by l mouth 2 (two) times a day as needed (as needed for post ablation chest pain) for up to 30 days. sucralfate 2021-09- No 1g [id number] Take 1 Methodi (CARAFATE) 0-29 08-02 [id number] tablet (1 st 1 gram 00:00: 05:59 3D g total) Hospit a tablet 00 :00 by mouth 3 l (three) times a day with meals for 30 days. pantoprazol 2021-09- No 40mg Q.5D Take 1 Met hodi e 08-02 tablet (40 st (PROTONIX) 00:00: 05:59 mg [...] pain) for up to 30 days. sucralfate 2021-09 No 1g Q.[id number] Take 1 Methodi (CARAFATE) 08-02 [id number] tablet (1 st 1 gram 00:00: 05:59 3D g total) Hospit a tablet 00 :00 by mouth 3 l (three) times a day with meals for 30 days. amLODIPine 2021-09 No 2.5mg QD Take 2.5 M ethodi (NORVASC) 0-27 10-[address] 2.5 mg 15:25: 00:00 mouth Hospita tablet 29 :00 daily. l amLODIPine 2021-09- No 2.5mg QD Take 2.5 M ethodi [...] 25 MG 55 :00 l tablet rosuvastati 2021- No 10mg QD Take 10 mg Methodi n (CRESTOR) 12-[address] 10 MG 08:25: 00:00 daily. Hospita tablet 15 :00 l aspirin No 81mg QD Take 81 mg Met hodi (ECOTRIN) 12-[address] 81 MG 08:24: 00:00 daily. Hospita enteric 04 :00 l coated tablet ampicillin No 250mg Q.25D Take 250 Methodi (PRINCIPEN) 12-30 04-[address] 250 MG 08:23: 00:00 mouth 4 Hospita capsule 51 :00 (four) l times a day. sotaloL Yes 80mg Q.5D Take 1 Methodi (BETAPACE) -27 tablet (80 st 80 MG 00:00: mg total) Hospita tablet 00 by mouth 2 l (two) times a day. sotaloL Yes 80mg Q.5D Take 1 Methodi (BETAPACE) 4-27 tablet (80 st 80 MG 00:00: mg total) Hospita tablet 00 by mouth 2 l (two) times a day. pantoprazol No 40mg QD 1 tablet M ethodi e 11-05 ([address] (PROTONIX) 00:00: 00:00 total) Hosp tatiana 40 MG EC 00 :00 daily. l tablet pantoprazol No 40mg QD 1 tablet M ethodi e 11-05- ([address] (PROTONIX) 00:00: 00:00 total) Hosp tatiana 40 MG EC 00 :00 daily. l tablet nitrofurant 2021- No [id number] 100mg Q.5D Take 1 Methodi oin, 10-31 03-[address] macrocrysta 00:00: 05:59 (100 mg Ho spita l-monohydra 00 :00 total) by l te, mouth 2 (Macrobid) (two) 100 MG times a capsule day for 5 days. estradioL 2021- No [id number] Insert or Methodi (Estrace) 10-28 apply 0.5 [...] pressure Diastolic blood 2022-08-09 15:37:00 95 mm[Hg] [facility] dist [facility] pressure Heart rate 2022-08-09 15:37:00 70 /min [facility] Body weight 2022-08-09 15:37:00 72.576 kg [facility] BMI 2022-08-09 15:37:00 25.06 kg/m2 [facility] Oxygen saturation in 2022-08-09 15:37:00 98 /min [facility] Arterial blood by Pulse oximetry Respiratory rate 2022-07-26 18:29:00 20 /min [facility] Body temperature 2022-07-02 16:43:56 36.22 [facility] Body height 2022-07-01 15:52:00 170.2 cm [facility] Procedures Procedure Date / Time Performing Source Performed Clinician CV MRI FUNCTION VIABILITY CHF 2022-08-09 Sami Matamoros [facility] EVALUATION 16:24:13 Hospital ESTIMATED GFR 2022-08-09 Sami Matamoros 15:32:00 Hospital POC PANEL 2022-08-09 Sami Matamoros 15:32:00 [facility] US BREAST COMPLETE BILATERAL 2022-08-03 Vinnie [facility]ist 16:59:21 [facility] MAMMO BREAST DIAGNOSTIC 2022-08-03 [facility] TOMOSYNTHESIS BILATERAL 16:38:38 Hospital POC CREATININE 2022-07-26 Annita Han 17:42:00 Hospital ESTIMATED GFR 2022-07-26 Annita Han 17:42:00 Hospital BASIC METABOLIC PANEL 2022-07-02 Annita Han 09:59:00 Hospital MAGNESIUM LEVEL 2022-07-02 Annita Han 09:59:00 Hospital ESTIMATED GFR 2022-07-02 Annita Han 09:59:00 Hospital EP COMPLETE EP STUDY W ABLATION 2022-07-01 Annita Han PULMONARY VEIN 19:05:41 Hospital ACTIVATED CLOTTING TIME 2022-07-01 Annita Han t 18:53:00 Hospital ACTIVATED CLOTTING TIME 2022-07-01 Annita Han t 18:15:00 Hospital ACTIVATED CLOTTING TIME 2022-07-01 Annita Han t 17:46:00 Hospital UT AN ELECTIVE ENDOTRACHEAL AIRWAY 2022-07-01 Yanelis Hurdist 17:11:00 L. Hospital TYPE AND SCREEN 2022-07-01 [...] 14:53:00 Hospital ESOPHAGOGASTRODUODENOSCOPY (EGD) 2021-12-30 Tra Roberts 13:30:00 Hospital COVID-19 QUALITATIVE RT-PCR 2021-12-27 Tra Roberts [facility] 19:26:00 Hospital URINE CULTURE 2021-10-28 Meseret Crisostomo 17:59:00 [facility] POC URINALYSIS DIPSTICK 2021-10-[address] 17:47:00 [facility] MEASURE POST VOID RESIDUAL 2021-10-28 Meseret Crisostomo 00:00:00 [facility] Plan of Care Planned Activity Planned Date Details Comments Source Future Scheduled 2023-02-17 Screening for [facility] Test 00:49:31 malignant neoplasm of colon (procedure) [code = 912996149] Future Scheduled 2023-02-17 Screening for [facility] Test 00:49:31 malignant neoplasm of colon (procedure) [code = 982783290] Future Scheduled 2023-02-17 Screening for [facility] Test 00:49:31 malignant neoplasm of colon (procedure) [code = 738938801] Future Scheduled 2023-02-17 65+ PNEUMOCOCCAL [facility] Test 00:49:31 VACCINE (1 - PCV) [code = 65+ PNEUMOCOCCAL VACCINE (1 - PCV)] Future Scheduled 2023-02-17 Hepatitis C screening [facility] Test 00:49:31 (procedure) [code = 786570073] Future Scheduled 2023-02-17 Screening for [facility] Test 00:49:31 malignant neoplasm of colon (procedure) [code = 087426775] Future Scheduled 2023-02-17 Screening for [facility] Test 00:49:31 malignant neoplasm of colon (procedure) [code = 763040627] Future Scheduled 2023-02-17 SHINGLES VACCINES ([address] [facility] Test 00:49:31 of 2) [code = SHINGLES VACCINES (1 of 2)] Future Scheduled 2023-02-17 COVID-19 VACCINE (3 - [facility] Test 00:49:31 Pfizer series) [code = COVID-19 VACCINE (3 - Pfizer series)] Future Scheduled 2023-02-17 INFLUENZA VACCINE Method [facility] Test 00:49:31 [code = INFLUENZA VACCINE] Future Scheduled 2023-02-17 BREAST CANCER [facility] Test 00:49:31 SCREENING [code = BREAST CANCER SCREENING] Future Scheduled 2022-10-18 65+ PNEUMOCOCCAL [facility] Test 03:02:58 VACCINE (1 - PCV) [code = 65+ PNEUMOCOCCAL VACCINE (1 - PCV)] Future Scheduled 2022-10-18 Hepatitis C screening [facility] Test 03:02:58 (procedure) [code = 533594719] Future Scheduled 2022-10-18 Screening for [facility] Test 03:02:58 malignant neoplasm of cervix (procedure) [code = 620522287] Future Scheduled 2022-10-18 COLONOSCOPY SCREENING [facility] Test 03:02:58 [code = COLONOSCOPY SCREENING] Future Scheduled 2022-10-18 SHINGLES VACCINES ([address] [facility] Test 03:02:58 of 2) [code = SHINGLES VACCINES (1 of 2)] Future Scheduled 2022-10-18 COVID-19 VACCINE (3 - [facility] Test 03:02:58 Booster for Pfizer series) [code = COVID-19 VACCINE (3 - Booster for Pfizer series)] Future Scheduled 2022-10-18 INFLUENZA VACCINE Method [facility] Test 03:02:58 [code = INFLUENZA VACCINE] Future Scheduled 2022-10-18 BREAST CANCER [facility] Test 03:02:58 SCREENING [code = BREAST CANCER SCREENING] Encounters Start End Encounter Admission Attending Care Care Encounter Source Date/Time Date/Time Type Type Clinicians Facility Department ID 2022-08-09 2022-08-09 [facility], 1.2.840.1 [id number] Methodi 08:33:24 23:59:00 [address] Nadtrice [address]83.1.[address] 3.430.2.7 Hospit a .3.974228 l .8 2022-08-09 2022-08-09 [facility] 1.2.840.1 [id number] Methodi 08:33:24 23:59:00 Encounter Nadim 94599.1.[address] 3.430.2.7 Hospit a .3.393491 l .8 2022-08-09 2022-08-09 Travel 1.2.840.1 1.2.379.701 [id number] Methodi 00:00:00 00:00:[address] 3.430.2.7 0.2.7.3.698 Ho spita .3.098888 084.8 l .8 2022-08-09 2022-08-09 Travel 1.2.840.1 1.2.601.246 4012 [id number] Methodi 00:00:00 00:00:[address] 3.430.2.7 0.2.7.3.698 Ho spita .3.506960 084.8 l .8 2022-08-03 2022-08-03 [facility], 1.2.840.1 [id number] Methodi 10:05:20 23:59:00 Encounter Vinnie 44578.1.[address] 3.430.2.7 Hospit a .3.623957 l .8 2022-08-03 2022-08-03 [facility], 1.2.840.1 [id number] Methodi 10:05:20 23:59:00 Encounter Vinnie 76821.1.[address] 3.430.2.7 Hospit a .3.569763 l .8 2022-08-03 2022-08-03 [facility], 1.2.840.1 [id number] Methodi 10:00:00 10:04:00 Encounter Vinnie [address]250.1.[address] 3.430.2.7 Hospit a .3.019011 l .8 2022-08-03 2022-08-03 [facility], 1.2.840.1 [id number] Methodi 10:00:00 10:04:00 Encounter Vinnie 31780.1.[address] 3.430.2.7 Hospit a .3.685321 l .8 2022-08-03 2022-08-03 Travel 1.2.840.1 1.2.227.453 8065 [id number] Methodi 00:00:00 00:00:[address] 3.430.2.7 0.2.7.3.698 Ho spita .3.056422 084.8 l .8 2022-08-03 2022-08-03 Travel 1.2.840.1 1.2.106.686 1677 [id number] Methodi 00:00:00 00:00:[address] 3.430.2.7 0.2.7.3.698 Ho spita .3.415852 084.8 l .8 2022-07-26 2022-07-26 [facility] Annita Han 1.2.840.1 [id number] 21 [id number] Methodi 11:08:21 23:59:[address] 3.430.2.7 Hospit a .3.427345 l .8 2022-07-26 2022-07-26 [facility] 1.2.840.1 [id number] 21 [id number] Methodi 11:08:21 23:59:[address] 3.430.2.7 Hospit a .3.695378 l .8 2022-07-26 2022-07-26 [facility], 1.2.840.1 [id number] 2099 [id number] Methodi 00:00:00 00:00:00 Orders Nad[address]9635.1.[address] 3.430.2.7 Hospit a .3.967758 l .8 2022-07-26 2022-07-26 Travel 1.2.840.1 1.2.834.835 1880 [id number] Methodi 00:00:00 00:00:[address] 3.430.2.7 0.2.7.3.698 Ho spita .3.169980 084.8 l .8 2022-07-26 2022-07-26 [facility], 1.2.840.1 [id number] Methodi 00:00:00 00:00:00 Orders [address]37.1.[address] 3.430.2.7 Hospit a .3.000505 l .8 2022-07-26 2022-07-26 Travel 1.2.840.1 1.2.289.226 0271 [id number] Methodi 00:00:00 00:00:[address] 3.430.2.7 0.2.7.3.698 Ho spita .3.895472 084.8 l .8 2022-07-15 [facility] [id number] 2 [id number] Methodi 00:00:00 00:00:[address] 3.430.2.7 Hospit a .3.799665 l .8 2022-07-15 2022-07-15 [facility] Annita Han 1.2.840.1 [id number] 2 [id number] Methodi 00:00:00 00:00:[address] 3.430.2.7 Hospit a .3.436264 l .8 2022-07-13 2022-07-13 [facility], 1.2.840.1 [id number] 2100 [id number] Methodi 00:00:00 00:00:00 Orders Nad[address]8420.1.[address] 3.430.2.7 Hospit a .3.083577 l .8 2022-07-13 2022-07-13 [facility], 1.2.840.1 [id number] 2100 [id number] Methodi 00:00:00 00:00:00 Orders Nad[address]83.1.[address] 3.430.2.7 Hospit a .3.136317 l .8 2022-07-01 2022-07-02 [facility] Annita Han 1.2.840.1 [id number] 21 [id number] Methodi 10:26:00 18:14:[address] 3.430.2.7 Hospit a .3.754594 l .8 2022-07-01 2022-07-02 [facility] Annita Han 1.2.840.1 [id number] 21 [id number] Methodi 10:26:00 18:14:[address] 3.430.2.7 Hospit a .3.980510 l .8 2022-07-01 2022-07-01 Surgery Annita Han 1.2.840.1 [id number] 463 [id number] Methodi 12:30:00 16:15:[address] 3.430.2.7 Hospit a .3.250212 l .8 2022-07-01 2022-07-01 Surgery Annita Han 1.2.840.1 [id number] 210 [id number] Methodi 12:30:00 16:15:[address] 3.430.2.7 Hospit a .3.629609 l .8 2022-07-01 2022-07-01 Anesthesia Myrna Hurd Heri. 1.2.840.1 [id number] Methodi 11:57:00 14:25:00 Event Tra Fan 04500.1.[address] 3.430.2.7 Hospit a .3.619895 l .8 2022-07-01 2022-07-01 Anesthesia Myrna Hurd. 1.2.840.1 [id number] Methodi 11:57:00 14:25:00 Event Tra Fan 64304.1.[address] 3.430.2.7 Hospit a .3.565496 l .8 2022-07-01 2022-07-01 Travel 1.2.840.1 1.2.415.662 9936 [id number] Methodi 00:00:00 00:00:[address] 3.430.2.7 0.2.7.3.698 Ho spita .3.305571 084.8 l .8 2022-07-01 2022-07-01 Travel 1.2.840.1 1.2.080.265 7767 [id number] Methodi 00:00:00 00:00:[address] 3.430.2.7 0.2.7.3.698 Ho spita .3.825926 084.8 l .8 2022-06-29 2022-06-29 Transcribe Justina, 1.2.840.1 [id number] 150 [id number] Methodi 00:00:00 00:00:00 Orders Vinnie 72302.1.[address] 3.430.2.7 Hospit a .3.663849 l .8 2022-06-29 2022-06-29 Transcribe Justina, 1.2.840.1 [id number] 436 [id number] Methodi 00:00:00 00:00:00 Orders Vinnie 43242.1.[address] 3.430.2.7 Hospit a .3.507428 l .8 2022-06-28 2022-06-28 Lab Tanya Annita 1.2.840.1 [id number] 549 [id number] Methodi 09:25:00 09:30:[address] 3.430.2.7 Hospit a .3.109696 l .8 2022-06-28 2022-06-28 Lab Annita Han 1.2.840.1 [id number] 583 [id number] Methodi 09:25:00 09:30:[address] 3.430.2.7 Hospit a .3.605396 l .8 2022-06-28 2022-06-28 Travel 1.2.840.1 1.2.027.299 6405 [id number] Methodi 00:00:00 00:00:[address] 3.430.2.7 0.2.7.3.698 Ho spita .3.160838 084.8 l .8 2022-06-28 2022-06-28 Travel 1.2.840.1 1.2.009.571 8671 188467 Methodi 00:00:00 00:00:[address] 3.430.2.7 0.2.7.3.698 Ho spita .3.169388 084.8 l .8 2022-06-09 2022-06-09 [facility], 1.2.840.1 [id number] Methodi 15:14:46 23:59:00 Encounter Sami 85195.1.[address] 3.430.2.7 Hospit a .3.460453 l .8 2022-06-09 2022-06-09 [facility], 1.2.840.1 [id number] [id number] Methodi 15:14:46 23:59:00 Encounter Nadim 07433.1.[address] 3.430.2.7 Hospit a .3.132964 l .8 2022-06-09 2022-06-09 Travel 1.2.840.1 1.2.966.369 2702 [id number] Methodi 00:00:00 00:00:[address] 3.430.2.7 0.2.7.3.698 Ho spita .3.594186 084.8 l .8 2022-06-09 2022-06-09 [facility], 1.2.840.1 [id number] Methodi 00:00:00 00:00:00 Orders Nadim 65908.1.[address] 3.430.2.7 Hospit a .3.584324 l .8 2022-06-09 2022-06-09 Travel 1.2.840.1 1.2.119.698 3707 354525 Methodi 00:00:00 00:00:[address] 3.430.2.7 0.2.7.3.698 Ho spita .3.742135 084.8 l .8 2022-06-09 2022-06-09 [facility], 1.2.840.1 [id number] Methodi 00:00:00 00:00:00 Orders Nadim 87557.1.[address] 3.430.2.7 Hospit a .3.396693 l .8 2022-05-26 2022-05-26 Community Annita Han 1.2.840.1 [id number] 2 [id number] Methodi 00:00:00 00:00:[address] 3.430.2.7 Hospit a .3.462972 l .8 2022-05-26 2022-05-26 Community Annita Han 1.2.840.1 [id number] 2 [id number] Methodi 00:00:00 00:00:[address] 3.430.2.7 Hospit a .3.796104 l .8 2022-03-16 2022-03-16 Travel 1.2.840.1 1.2.660.807 7744 [id number] Methodi 00:00:00 00:00:[address] 3.430.2.7 0.2.7.3.698 Ho spita .3.568011 084.8 l .8 2022-03-16 2022-03-16 Travel 1.2.840.1 1.2.207.603 7366 140223 Methodi 00:00:00 00:00:[address] 3.430.2.7 0.2.7.3.698 Ho spita .3.442267 084.8 l .8 2021-12-30 2021-12-30 [facility] 1.2.840.1 [id number] 2100 [id number] Methodi 07:41:00 09:59:00 Encounter Tra Lucero 41138.1.1 8[address] 3.430.2.7 Hospit a .3.045555 l .8 2021-12-30 2021-12-30 Anesthesia Joel Hurd 1.2.840.1 [id number] Methodi 08:33:00 09:07:00 Event Octavia Ariza 92913.1.[address] 3.430.2.7 Hospit a .3.840250 l .8 2021-12-30 2021-12-30 Surgery [facility] 1.2.840.1 [id number] [id number] Methodi 08:30:00 09:00:00 Tra Lucero [address]207[address]1.[address] 3.430.2.7 Hospit a .3.750022 l .8 2021-12-29 2021-12-29 Travel 1.2.840.1 1.2.863.609 8330 [id number] Methodi 00:00:00 00:00:[address] 3.430.2.7 0.2.7.3.698 Ho spita .3.763835 084.8 l .8 2021-12-27 2021-12-27 Lab Alejandra, 1.2.840.1 [id number] 93320 00579 Methodi 14:50:00 15:00:[address] Tra Luc[address] 3.430.2.7 Hospit a .3.644592 l .8 2021-12-27 2021-12-27 Travel 1.2.840.1 1.2.197.914 1720 101562 Methodi 00:00:00 00:00:[address] 3.430.2.7 0.2.7.3.698 Ho spita .3.263004 084.8 l .8 2021-10-31 2021-10-31 Telephone Andressa, 1.2.840.1 [id number] 2099 [id number] Methodi 00:00:00 00:00:[address] Dewi 3.430.2.7 Hospit a [place] .3.014973 l .8 2021-10-28 2021-10-28 [facility], 1.2.840.1 [id number] 7258 Methodi 11:30:00 14:24:51 Visit Meseret 50814.1.[address] Dewi 3.430.2.7 Hospit a [place] .3.418906 l .8 2021-10-28 2021-10-28 Telephone Niall, 1.2.840.1 [id number] 2099 [id number] Methodi 00:00:00 00:00:[address] 3.430.2.7 Hospit a .3.668532 l .8 2021-10-28 2021-10-28 Telephone [facility] 1.2.840.1 [id number] Methodi 00:00:00 00:00:00 pt, 90147.1.[address] Maria Ines 3.430.2.7 Hospi ta .3.005409 l .8 2021-10-28 2021-10-28 Travel 1.2.840.1 1.2.323.840 1953 [id number] Methodi 00:00:00 00:00:[address] 3.430.2.7 0.2.7.3.698 Ho spita .3.150440 084.8 l .8 2021-10-26 2021-10-26 Travel 1.2.840.1 1.2.652.585 0747 [id number] Methodi 00:00:00 00:00:[address] 3.430.2.7 0.2.7.3.698 Ho spita .3.188564 084.8 l .8 2021-10-26 2021-10-26 [facility] 1.2.[facility].1 [id number] Methodi 00:00:00 00:00:[address] [place] 3.430.2.7 [facility] [place] .3.309817 l .8 2021-08-02 2021-08-02 Outpatient JUSTINA, [facility] [id number] [address] [place] 00:00:00 00:00:00 VINNIE 831 Method i 2021-08-02 2021-08-02 Outpatient JUSTINA, [facility] [id number] [address] [place] 00:00:00 00:00:00 VINNIE [address] 2020-12-18 2020-12-18 Outpatient JUSTINA, [facility] [id number] [address] [place] 00:00:00 00:00:00 VINNIE 369 Method i 2020-12-17 2020-12-17 Outpatient JUSTINA, [facility] [id number] [address] [place] 00:00:00 00:00:[address] VINNIE [address] 2020-12-10 2020-12-10 Outpatient ANTOSH, [facility] [id number] [place] 00:00:00 00:00:00 MESERET 839 [place] di 2020-06-12 2020-06-12 Outpatient JUSTINA, [facility] [id number] [address] [place] 00:00:00 00:00:00 VINNIE [address] 2020-06-12 2020-06-12 Outpatient JUSTINA, [facility] [id number] [address] [place] 00:00:00 00:00:00 VINNIE [address] 2020-06-09 2020-06-09 Outpatient HENRIQUEZ, [facility] [id number] [place] 00:00:00 00:00:[address] 2020-03-02 2020-03-02 Outpatient HENRIQUEZ, [facility] [id number] [address] [place] 00:00:00 00:00:[address] 2020-02-17 2020-02-17 Outpatient HENRIQUEZ, [facility] [id number] [address] [place] 00:00:00 00:00:[address] 2019-12-30 2019-12-30 Outpatient HENRIQUEZ, [facility] [id number] [place] 00:00:00 00:00:[address] 2018-05-10 2018-05-11 Outpatient RAMI, GIULIANO [facility] [id number] [place] 00:00:00 00:00:[address] 2016-11-29 2016-11-29 Outpatient SATURNINO, [facility] [id number] [address] [place] 00:00:00 00:00:00 NADIM [address] Results Test Description Test Time Test Comments Results Result Comments Source POC panel 2022-08-09 15:34:01 Test Item Value Reference Range Interpretation Comme nts POC creatinine (test code = 0.6 mg/dl 0.5-0.9 Insurance Billing Clerk Name: Edy Yang [id number]) ID: [id number] POC hematocrit (test code = 44 % 37-47 4544-3) [facility] [id number] 15:34:01 Test Item Value Reference Range Interpretation Comments POC creatinine (test 0.6 mg/dl 0.5-0.9 Operato r Name: Edy code = 12293-6) Trey ID: [id number] POC hematocrit (test 44 % 37-47 code = 4544-3) [facility] [id number] 15:34:00Estimated GFR>=90mL/min/1.73 m208/09/2022 9:34 [facility] [id number] 15:34:00Estimated GFR>=90mL/min/1.73 m208/09/2022 9:34 AM [facility] [id number] 18:06:00 Test Item Value Reference Range Interpretation Comments POC creatinine (test 0.7 mg/dl 0.5-0.9 Operato r Name: Hurd code = 79765-7) [facility] Device ID: [id number] [facility] [id number] 18:06:00 Test Item Value Reference Range Interpretation Comments POC creatinine (test 0.7 mg/dl 0.5-0.9 Operato r Name: Hurd code = 48518-6) [facility] Device ID: [id number] [facility] Pre/Post [id number] 16:10:39 Test Item Value Reference Range Interpretation Comments Ventricular rate (test 68 code = 253) Atrial rate (test code = 68 255) UT interval (test code = 172 266) QRSD [...] Matamoros MD ([id number]) on 07/01/2022 11:10:37 AM [facility] Pre/Post [id number] 16:10:39 Test Item Value Reference Range Interpretation Comments Ventricular rate (test 68 code = 253) Atrial rate (test code = 68 255) UT interval (test code = 172 266) QRSD [...] Matamoros MD ([id number]) on 07/01/2022 11:10:37 AM [facility] qualitative [id number] 18:33:13 Test Item Value Reference Interpretation Comments Range Interpretation Negative results do (test code = not preclude COVID-19 4838282) infection and should not be used asthe sole basis for treatment or other patient management decisions. Negativeresults must be combined with clinical observations, patient history, andepidemiological information. COVID-19 Not-Detected Not-Detected DISCLAIMER:This qualitative RT-PCR test was result (test code performed using = 16579-3) the Senty m SARS-CoV-2 Assa y ([employer]). This assay is available for i n vitro diagnosti c use under Food and Drug Administration (FDA) Emergency Use Authorizati on (EUA) and has been verified f or clinical use by the [facility]. Information on the FDA policy for diagnostic tests for coronavirus disease- 2019 i s available at:https://www. fd a.gov/medical-d ev ices/emergency- si tuations-medica l- devices/faqs-di ag nostic-testing- sa rs-cov-2It is critical that health care providers and patients review the applicable fact sheet(s) i n interpreting or understanding t he test results th at are available upon request.SONJA ORONA GY:This assay utilizes garland ts for nucleic aci d extraction, amplification, and real-time reverse raise miner polymerase grady n reaction. COVID-19 See link below for PDF Case Number: qualitative RT-PCR Lab Report [id number] (test code = 7070) [facility] qualitative [id number] 18:33:13 Test Item Value Reference Interpretation Comments Range Interpretation Negative results do (test code = not preclude COVID-19 4305508) infection and should not be used asthe sole basis for treatment or other patient management decisions. Negativeresults must be combined with clinical observations, patient history, andepidemiological information. COVID-19 Not-Detected Not-Detected DISCLAIMER:This qualitative RT-PCR test was result (test code performed using = 66194-5) the Charles melissa SARS-CoV-2 Assa y ([employer]). This assay is available for i n vitro diagnosti c use under Food and Drug Administration (FDA) Emergency Use Authorizati on (EUA) and has been verified f or clinical use by the [facility]. Information on the FDA policy for diagnostic tests for coronavirus disease- 2019 i s available at:https://www. fd a.gov/medical-d ev ices/emergency- si tuations-medica l- devices/faqs-di ag nostic-testing- sa rs-cov-2It is critical that health care providers and patients review the applicable fact sheet(s) i n interpreting or understanding t he test results th at are available upon request.SHANEO ADWOA GY:This assay utilizes [employer] Medical Technologiesen ts for nucleic aci d extraction, amplification, and real-time reverse raise miner polymerase grady n reaction. COVID-19 See link below for PDF Case Number: qualitative RT-PCR Lab Report [id number] PDF (test code = 7070) [facility] [Presence] in Respiratory specimen by LORE with probe [id number] 13:33:13 Test Item Value Reference Range Interpretation Comments SARS-CoV-2 (COVID-19) RNA Not detected [Presence] in Respiratory specimen by LORE with probe detection (test code = 48369-8) Whether patient is employed in a Unknown healthcare setting (test code = 98474-5) Whether the patient has symptoms Unknown related to condition of interest (test code = 37309-3) Whether the patient was Unknown hospitalized for condition of interest (test code = 76486-6) Whether the patient was admitted Unknown to intensive care unit (ICU) for condition of interest (test code = 91667-2) Whether patient resides in a Unknown congregate care setting (test code = 69173-9) status (test code = Unknown 39675-0) Date and time of symptom onset Unknown (test code = 31556-8) [facility] [id number] 22:40:27 Test Item Value Reference Range Interpretation Comments Case number (test code = [id number]) Surgical pathology See link below for report (test code = PDF Lab Report 2257) Result status (test code This is Final Report = [id number]) for [id number] Hiram BanksARS-CoV-2 (COVID-19) RNA [Presence] in Respiratory specimen by LORE with probe [id number] 21:32:37 Test Item Value Reference Range Interpretation Comments SARS-CoV-2 (COVID-19) RNA Not detected [Presence] in Respiratory specimen by LORE with probe detection (test code = 63683-8) Whether patient is employed in a Unknown healthcare setting (test code = 81166-4) Whether the patient has symptoms Unknown related to condition of interest (test code = 33699-5) Whether the patient was Unknown hospitalized for condition of interest (test code = 20227-5) Whether the patient was admitted Unknown to intensive care unit (ICU) for condition of interest (test code = 73706-8) Whether patient resides in a Unknown congregate care setting (test code = 52267-1) status (test code = Unknown 63710-4) Date and time of symptom onset Unknown (test code = 93991-4) [facility] [id number] 18:38:00 Test Item Value Reference Interpretation Comments Range Urine culture (test SEE NOTE A CULTURE , URINE, code = 630-4) ROUTINE Micro Number: [id number] Test Status: Fi nal Specimen Source [...] P. mirabilis : Cefazolin is resistant if [place] C > or = 8 mcg/mL. (Distinguishing [...] = Performing RAC) Organization Information: Site ID: A Name: [facility] Address: [address] [place] [id number] Director: Wesley Saini Lab Interpretation Abnormal (test code = 83268-6) [facility] urinalysis [id number] 17:47:00 Test Item Value Reference Range Interpretation Comments Color urine, POC (test Yellow code = 7835390) Clarity urine, POC (test Clear code = 0572152) Glucose urine, POC (test Negative Negative code = 7558304) Bilirubin urine, POC Negative Negative (test code = 2326659) Ketones urine, POC (test Negative Negative code = 9451868) Specific gravity urine, </=1.005 1.005-1.030 POC (test code = 4667408) Blood urine, POC (test Moderate Negative A code = 7542749) pH urine, POC (test code 5.0 See_Comment [A utomated message] = 8692311) The system [employer] generated this result transmitted ref erence range: 5.0, 5.5 , 6.0, 6.5, 7.0, 7.5, 8.0, 8.5. The refere nce range was not u sed to interpret this result as normal/abnor mal. Protein urine, POC (test Negative Negative code = 4224559) Urobilinogen urine, POC <2.0 <=2.0 (test code = 6890690) Nitrite urine, POC (test Positive Negative A code = 8944768) Leukocyte esterase Moderate Negative A urine, POC (test code = 1763230) Lab Interpretation (test Abnormal code = 87529-2) [facility] Center[facility] post void [id number] 17:47:00 Test Item Value Reference Range Interpretation Comments Total volume, urine (test code = 2338) 0 ml [facility]
[2023-02-25] MEDS ORDERED: ASPIRIN 81 MG CHEWABLE TABLET ONE (12:11)
[2023-02-25] MEDS ORDERED: NA CHLORIDE 0.9% 500 ML ONE (12:11)
[2023-02-25] MEDS ORDERED: FAMOTIDINE 20 MG/2 ML VIAL IV ONE (12:12)
[2023-02-25] MEDS ORDERED: NA CHLORIDE 0.9% 1,000 ML ONE (12:12)
[2023-02-25 12:22] LABS: Absolute Lymphocytes (CBC) 1.8 K/uL (0.7-4.9); Hematocrit 44.9 % (36.0-45.0); Lymphocytes % 33.3 % (15.3-44.8); MCV 89.6 fL (80-100); MPV 9.2 fL (7.6-11.3); RBC Red Blood Cell Count 5.01 M/uL (3.86-4.86)
[2023-02-25 12:42] LABS: Albumin 3.7 g/dL (3.4-5.0); Bilirubin Direct 0.1 mg/dL (0-0.2); Bilirubin Indirect, Calculated 0.4 mg/dL (0.2-0.8); Bilirubin Total 0.5 mg/dL (0.2-1.0); Magnesium 2.2 mg/dL (1.6-2.4); Potassium 3.7 mEq/L (3.5-5.1); Protein, Total 7.7 g/dL (6.4-8.2); Troponin High Sensitivity 7.2 pg/mL (<58.9)
[2023-02-25 12:57] LABS: Protime INR 1.06
[2023-02-25 12:57] LABS: Specific Gravity 1.007 (1.005-1.030); Urine Bilirubin NEGATIVE (Negative); Urine Blood Negative (Negative); Urine Clarity Clear (Clear); Urine Color Colorless (Yellow); Urine Glucose NEGATIVE (Negative); Urine Protein NEGATIVE (Negative); Urine Urobilinogen Normal (Normal)
--- NOTE | 2023-02-25 13:08 | RAD REPORT ---
EXAM DESCRIPTION: Iker Single View02/25/2023 12:55 pm CLINICAL HISTORY: Chest pain COMPARISON: 2021 FINDINGS: The lungs appear clear of acute infiltrate. The heart is mildly enlarged. Pacemaker leads are in place. IMPRESSION: No acute abnormalities displayed
--- NOTE | 2023-02-25 13:28 | ER ---
Nurse's Notes [facility] Name: Tabitha Combs Age: 67 yrs Sex: Female : 1955 Arrival Date: 02/25/2023 Time: 11:18 Bed 4 Private MD: Vinnie Horn V Diagnosis: Chest pain, unspecified;Paroxysmal atrial fibrillation;Essential (primary) hypertension Presentation: 02/25 11:42 Chief complaint: Patient states: started with discomfort in her chest radiating to left iw shoulder and into her left arm, pain is 2/10 now but was 10/10 last night. Coronavirus screen: At this time, the client does not indicate any symptoms associated with coronavirus-19. Ebola Screen: Patient negative for fever greater than or equal to 101.5 degrees Fahrenheit, and additional compatible Ebola Virus Disease symptoms Patient denies exposure to infectious person. Patient denies travel to an Ebola-affected area in the 21 days before illness onset. No symptoms or risks identified at this time. Initial Sepsis Screen: Does the patient meet any 2 criteria? No. Patient's initial sepsis screen is negative. Does the patient have a suspected source of infection? No. Patient's initial sepsis screen is negative. Risk Assessment: Do you want to hurt yourself or someone else? Patient reports no desire to harm self or others. Onset of symptoms was February 24, 2023. 11:42 Method Of Arrival: Ambulatory iw 11:42 Acuity: RUBIN 3 iw Historical: - Allergies: 11:44 Codeine; iw 11:44 Fentanyl; makes her sick; iw - Home Meds: 11:45 Aspirin EC Oral [Active]; sotalol 80 mg Oral tab 1 tab 2 times per day for eh3 Life-Threatening Ventricular Tachycardia [Active]; Spironolactone Oral [Active]; valsartan 40 mg Oral tab 1 tab 2 times per day for Hypertension [Active]; xaralto [Active]; - PMHx: 11:44 Atrial Fib; Hyperlipidemia; Hypertension; SVT; iw - PSHx: 11:44 pacemker; iw - Immunization history:: Adult Immunizations up to date. - Social history:: Smoking status: unknown. - Family history:: not pertinent. Screenin:45 [place] ED Fall Risk Assessment (Adult) Score/Fall Risk Level 0 - 2 = Low Risk. Abuse eh3 screen: Denies threats or abuse. Denies injuries from another. Nutritional screening: No deficits noted. Tuberculosis screening: No symptoms or risk factors identified. Assessment: 11:45 General: Appears in no apparent distress. uncomfortable, Behavior is calm, cooperative, eh3 appropriate for age. Pain: Complains of pain in chest Pain radiates to left arm Pain began 1 day ago. Neuro: Level of Consciousness is awake, alert, obeys commands, Oriented to person, place, time, situation. Cardiovascular: Capillary refill < 3 seconds Patient's skin is warm and dry. Respiratory: Airway is patent Respiratory effort is even, unlabored, Respiratory pattern is regular, symmetrical. GI: Abdomen is round non-distended. Derm: Skin is pink, warm \T\ dry. Musculoskeletal: Circulation, motion, and sensation intact. 13:00 Reassessment: Patient appears in no apparent distress at this time. Patient and/or 3 family updated on plan of care and expected duration. Pain level reassessed. Patient is alert, oriented x 3, equal unlabored respirations, skin warm/dry/pink. 14:00 Reassessment: Patient appears in no apparent distress at this time. Patient and/or 3 family updated on plan of care and expected duration. Pain level reassessed. Patient is alert, oriented x 3, equal unlabored respirations, skin warm/dry/pink. 15:00 Reassessment: Patient appears in no apparent distress at this time. Patient and/or 3 family updated on plan of care and expected duration. Pain level reassessed. Patient is alert, oriented x 3, equal unlabored respirations, skin warm/dry/pink. Vital Signs: 11:42 BP 175 / 109; Pulse 66; Resp 16; Temp 98.9; Pulse Ox 98% on R/A; iw 12:00 BP 146 / 93; Pulse 66; Resp 12; Pulse Ox 97% on R/A; eh3 13:00 BP 167 / 95; Pulse 62; Resp 14; Pulse Ox 100% on R/A; eh3 14:00 BP 137 / 91; Pulse 64; Resp 19; Pulse Ox 96% on R/A; Weight 72.57 kg; eh3 15:00 BP 149 / 92; Pulse 67; Resp 14; Pulse Ox 96% on R/A; eh3 ED Course: 11:20 Patient arrived in ED. am2 11:21 Vinnie Horn MD is Private Physician. am2 11:32 Santy Rivera MD is Attending Physician. flakito 11:44 Triage completed. iw 11:44 Arm band placed on. iw 11:45 Patient has correct armband on for positive identification. Placed in gown. Bed in low eh3 position. Call light in reach. Side rails up X2. Adult w/ patient. Client placed on continuous cardiac and pulse oximetry monitoring. NIBP monitoring applied. Door closed. Noise minimized. Lights dimmed. Warm blanket given. 11:45 Patient maintains SpO2 saturation greater than 95% on room air. eh3 11:51 Shannan Macario, SAVANNAH is Primary Nurse. eh3 12:43 PT-INR Sent. mm9 12:43 Initial lab(s) drawn, by me, sent to lab. EKG done, by ED staff, reviewed by Santy Rivera MD. Inserted saline lock: 20 gauge in left antecubital area, using aseptic technique. Blood collected. 12:44 Patient has correct armband on for positive identification. Placed in gown. Bed in low mm9 position. Call light in reach. Adult w/ patient. Client placed on continuous cardiac and pulse oximetry monitoring. NIBP monitoring applied. coat room attendant on. Pulse ox on. NIBP on. 12:57 XRAY Chest (1 view) In Process Unspecified. EDMS 13:26 Vinnie Horn MD is Hospitalizing Provider. [facility] 15:00 Diet: Patient given snack. Patient given water. Tolerated well. 3 15:31 No provider procedures requiring assistance completed. Patient admitted, IV remains in eh3 place. Administered Medications: 12:10 Drug: Aspirin PO Chewable Tablet 81 mg Route: PO; 3 13:35 Follow up: Response: No adverse reaction 3 12:15 Drug: NS 0.9% IV 500 ml Route: IV; Rate: bolus; Site: left antecubital; 3 13:35 Follow up: IV Status: Completed infusion; IV Intake: 500ml [facility] 12:15 Drug: NS 0.9% IV 1000 ml Route: IV; Rate: 125 ml/hr; Site: left antecubital; 3 15:30 Follow up: IV Status: Infusion continued upon admission; IV Intake: 625ml eh3 12:15 Drug: Famotidine IVP 20 mg Route: IVP; Site: left antecubital; eh3 13:35 Follow up: Response: No adverse reaction eh3 13:30 Drug: Ativan IVP 1 mg Route: IVP; Site: left antecubital; eh3 14:35 Follow up: Response: No adverse reaction; Anxiety decreased eh3 15:15 Drug: Enoxaparin Sub-Q 1 mg/kg Route: Sub-Q; Site: right lower abdomen; eh3 15:42 Follow up: Response: No adverse reaction eh3 Medication: 15:31 VIS not applicable for this client. eh3 Intake: 13:35 IV: 500ml; Total: 500ml. eh3 15:30 IV: 625ml; Total: 1125ml. eh3 Outcome: 13:27 Decision to Hospitalize by Provider. [facility] 15:32 Admitted to ER Hold. Please see [facility] for further documentation. eh3 15:32 Condition: stable 15:32 Instructed on the need for admit. 17:41 Patient left the ED. iw Signatures: Dispatcher [employer] Santy Silverio MD MD cha Williams, Irene, RN Becki Torrez Erin, RN RN Juliet Mishra mm9
--- NOTE | 2023-02-25 13:28 | EDPHYS ---
Physician Documentation [facility] Name: Tabitha Combs Age: 67 yrs Sex: Female : 1955 Arrival Date: 02/25/2023 Time: 11:18 Bed 4 Private MD: Vinnie Horn V ED Physician Santy Rivera HPI: 02/25 13:21 This 67 yrs old Female presents to ER via Ambulatory with complaints of Chest flakito Pain, Arm Pain, Back Pain. 13:21 The patient or guardian reports chest pain that is located primarily in the substernal flakito area, anterior chest wall, left. Onset: just prior to arrival, this morning. The pain radiates to left arm. Associated signs and symptoms: Pertinent positives: dizziness, nausea. The chest pain is described as a heaviness, causing indigestion. Modifying factors: The symptoms are alleviated by nothing. the symptoms are aggravated by nothing. Severity of pain: At its worst the pain was moderate in the emergency department the pain has improved markedly. The patient has not experienced similar symptoms in the past. Historical: - Allergies: 11:44 Codeine; iw 11:44 Fentanyl; makes her sick; iw - Home Meds: 11:45 Aspirin EC Oral [Active]; sotalol 80 mg Oral tab 1 tab 2 times per day for eh3 Life-Threatening Ventricular Tachycardia [Active]; Spironolactone Oral [Active]; valsartan 40 mg Oral tab 1 tab 2 times per day for Hypertension [Active]; xaralto [Active]; - PMHx: 11:44 Atrial Fib; Hyperlipidemia; Hypertension; SVT; iw - PSHx: 11:44 pacemker; iw - Immunization history:: Adult Immunizations up to date. - Social history:: Smoking status: unknown. - Family history:: not pertinent. ROS: 13:21 Constitutional: Negative for fever, chills, and weight loss, Eyes: Negative for injury, flakito pain, redness, and discharge, ENT: Negative for injury, pain, and discharge, Neck: Negative for injury, pain, and swelling, Respiratory: Negative for shortness of breath, cough, wheezing, and pleuritic chest pain, Abdomen/GI: Negative for abdominal pain, nausea, vomiting, diarrhea, and constipation, Back: Negative for injury and pain, : Negative for injury, bleeding, discharge, and swelling, MS/Extremity: Negative for injury and deformity, Skin: Negative for injury, rash, and discoloration, Neuro: Negative for headache, weakness, numbness, tingling, and seizure, Psych: Negative for depression, anxiety, suicide ideation, homicidal ideation, and hallucinations, Allergy/Immunology: Negative for hives, rash, and allergies, Endocrine: Negative for neck swelling, polydipsia, polyuria, polyphagia, and marked weight changes, Hematologic/Lymphatic: Negative for swollen nodes, abnormal bleeding, and unusual bruising. 13:21 Cardiovascular: Positive for chest pain, with movement, of the chest. Exam: 13:21 Constitutional: This is a well developed, well nourished patient who is awake, alert, flakito and in no acute distress. Head/Face: Normocephalic, atraumatic. Eyes: Pupils equal round and reactive to light, extra-ocular motions intact. Lids and lashes normal. Conjunctiva and sclera are non-icteric and not injected. Cornea within normal limits. Periorbital areas with no swelling, redness, or edema. ENT: Nares patent. No nasal discharge, no septal abnormalities noted. Tympanic membranes are normal and external auditory canals are clear. Oropharynx with no redness, swelling, or masses, exudates, or evidence of obstruction, uvula midline. Mucous membranes moist. Neck: Trachea midline, no thyromegaly or masses palpated, and no cervical lymphadenopathy. Supple, full range of motion without nuchal rigidity, or vertebral point tenderness. No Meningismus. Chest/axilla: Normal chest wall appearance and motion. Nontender with no deformity. No lesions are appreciated. Cardiovascular: Regular rate and rhythm with a normal S1 and S2. No gallops, murmurs, or rubs. Normal PMI, no JVD. No pulse deficits. Respiratory: Lungs have equal breath sounds bilaterally, clear to auscultation and percussion. No rales, rhonchi or wheezes noted. No increased work of breathing, no retractions or nasal flaring. Abdomen/GI: Soft, non-tender, with normal bowel sounds. No distension or tympany. No guarding or rebound. No evidence of tenderness throughout. Back: No spinal tenderness. No costovertebral tenderness. Full range of motion. Female : Normal external genitalia. Skin: Warm, dry with normal turgor. Normal color with no rashes, no lesions, and no evidence of cellulitis. MS/ Extremity: Pulses equal, no cyanosis. Neurovascular intact. Full, normal range of motion. Neuro: Awake and alert, GCS 15, oriented to person, place, time, and situation. Cranial nerves II-XII grossly intact. Motor strength 5/5 in all extremities. Sensory grossly intact. Cerebellar exam normal. Normal gait. Psych: Awake, alert, with orientation to person, place and time. Behavior, mood, and affect are within normal limits. 13:21 ECG was reviewed by the Attending Physician. 13:21 Musculoskeletal/extremity: DVT Exam: No signs of deep vein thrombosis. no pain, no swelling, no tenderness, negative Homans' sign noted on exam, no appreciated bluish discoloration, no erythema, no increased warmth. Vital Signs: 11:42 BP 175 / 109; Pulse 66; Resp 16; Temp 98.9; Pulse Ox 98% on R/A; iw 12:00 BP 146 / 93; Pulse 66; Resp 12; Pulse Ox 97% on R/A; eh3 13:00 BP 167 / 95; Pulse 62; Resp 14; Pulse Ox 100% on R/A; eh3 14:00 BP 137 / 91; Pulse 64; Resp 19; Pulse Ox 96% on R/A; Weight 72.57 kg; eh3 15:00 BP 149 / 92; Pulse 67; Resp 14; Pulse Ox 96% on R/A; eh3 MDM: 11:32 Patient medically screened. [facility] 02/25 11:33 Order name: Basic Metabolic Panel; Complete Time: 13:13 [facility] 02/25 11:33 Order name: CBC with Diff; Complete Time: 13:13 [facility] 02/25 11:33 Order name: LFT's; Complete Time: 13:13 [facility] 02/25 11:33 Order name: Magnesium; Complete Time: 13:13 [facility] 02/25 11:33 Order name: NT PRO-BNP; Complete Time: 13:13 [facility] 02/25 11:33 Order name: PT-INR; Complete Time: 13:13 [facility] 02/25 11:33 Order name: Troponin HS; Complete Time: 13:13 [facility] 02/25 11:33 Order name: Urinalysis w/ reflexes [facility] 02/25 11:33 Order name: Lipase; Complete Time: 13:13 [facility] 02/25 11:33 Order name: XRAY Chest (1 view); Complete Time: 13:13 [facility] 02/25 11:33 Order name: CT Aorta for Dissection [facility] 02/25 14:06 Order name: CT [facility] 02/25 11:33 Order name: EKG; Complete Time: 11:34 [facility] 02/25 13:32 Order name: CONS Physician Consult [facility] 02/25 11:33 Order name: Cardiac monitoring; Complete Time: 12:25 [facility] 02/25 11:33 Order name: EKG - Nurse/Tech; Complete Time: 12:25 [facility] 02/25 11:33 Order name: IV Saline Lock; Complete Time: 12:25 [facility] 02/25 11:33 Order name: Labs collected and sent; Complete Time: 12:25 [facility] 02/25 11:33 Order name: O2 Per Protocol; Complete Time: 12:25 [facility] 02/25 11:33 Order name: O2 Sat Monitoring; Complete Time: 12:25 [facility] EC:21 Rate is 66 beats/min. Rhythm is regular. QRS [place] is Normal. [place] interval is normal. QRS flakito interval is normal. QT interval is normal. No Q waves. T waves are Normal. T waves are Inverted in leads III, aVF. ST Segment is depressed in leads V3, V4, V5, V6. Clinical impression: NSR w/ Non-specific ST/T Changes. Interpreted by me. Reviewed by me. Administered Medications: 12:10 Drug: Aspirin PO Chewable Tablet 81 mg Route: PO; 3 13:35 Follow up: Response: No adverse reaction 3 12:15 Drug: NS 0.9% IV 500 ml Route: IV; Rate: bolus; Site: left antecubital; 3 13:35 Follow up: IV Status: Completed infusion; IV Intake: 500ml 3 12:15 Drug: NS 0.9% IV 1000 ml Route: IV; Rate: 125 ml/hr; Site: left antecubital; 3 15:30 Follow up: IV Status: Infusion continued upon admission; IV Intake: 625ml 3 12:15 Drug: Famotidine IVP 20 mg Route: IVP; Site: left antecubital; 3 13:35 Follow up: Response: No adverse reaction 3 13:30 Drug: Ativan IVP 1 mg Route: IVP; Site: left antecubital; eh3 14:35 Follow up: Response: No adverse reaction; Anxiety decreased eh3 15:15 Drug: Enoxaparin Sub-Q 1 mg/kg Route: Sub-Q; Site: right lower abdomen; eh3 15:42 Follow up: Response: No adverse reaction eh3 Disposition Summary: 02/25/23 13:27 Hospitalization Ordered Hospitalization Status: Observation flakito Provider: Vinnie Horn cha Location: Telemetry/MedSurg (observation) flakito Condition: Stable flakito Problem: new flakito Symptoms: have improved flakito Bed/Room Type: Standard flakito Room Assignment: 212(02/25/23 16:34) ja1 Diagnosis - Chest pain, unspecified flakito - Paroxysmal atrial fibrillation flakito - Essential (primary) hypertension flakito Forms: - Medication Reconciliation Form flakito - SBAR form flakito Signatures: Dispatcher [employer] EDSanty Zapata MD MD cha Williams, Irene, RN RN iw Aguilar, Jose, RN RN ja1 Shannan Macario RN RN 3 Corrections: (The following items were deleted from the chart) 16:34 13:27 flakito burdick
[2023-02-25] MEDS ORDERED: LORazepam 2 MG/ML VIAL ONE (13:39)
--- NOTE | 2023-02-25 14:05 | RAD REPORT ---
EXAM DESCRIPTION: CT - Angio Aorta For Dissection - 02/25/2023 1:50 pm CLINICAL HISTORY: . Chest and abd pain COMPARISON: 2018 TECHNIQUE: Computed tomography angiography of the chest, abdomen pelvis were obtained. 100 cc Isovue 370 was administered intravenously. Coronal and sagittal reconstruction were performed. MIP 3D reconstruction was performed All CT scans are performed using dose optimization technique as appropriate and may include automated exposure control or mA/KV adjustment according to patient size. FINDINGS: An aortic dissection is not seen. An aortic aneurysm is not displayed. The celiac, SMA and ALLA are patent . A lung consolidation is not present. A pericardial effusion is not seen. A pleural effusion is not no maddison. The liver,spleen, pancreas,adrenals and kidneys demonstrate no significant abnormality. There no evidence diverticulitis. A normal appendix. No adnexal mass. Pessary within the pelvis IMPRESSION: Negative for an aortic dissection.
[2023-02-25] MEDS ORDERED: ENOXAPARIN 30 MG/0.3 ML SQ ONE (15:05)
[2023-02-25] MEDS ORDERED: ENOXAPARIN 40 MG/0.4 ML SQ ONE (15:06)
[2023-02-25 16:12] VITALS: BMI 25.8
[2023-02-25] MEDS ORDERED: ONDANSETRON 4 MG/2 ML VIAL IV PRN (16:12)
[2023-02-25] MEDS ORDERED: MORPHINE 2 MG/ML SYR IV PRN (16:12)
[2023-02-25] MEDS ORDERED: ACETAMINOPHEN 325 MG TABLET PO PRN (16:12)
[2023-02-25] MEDS: SOTALOL HCL 80 MG TAB PO SCH (18:09)
[2023-02-25] MEDS ORDERED: ENOXAPARIN 80 MG/0.8 ML SQ SCH (21:00)
[2023-02-25] MEDS: FAMOTIDINE 20 MG/2 ML VIAL IV SCH (21:22)
[2023-02-26 02:56] LABS: Absolute Lymphocytes (CBC) 2.7 K/uL (0.7-4.9); Hematocrit 42.5 % (36.0-45.0); MPV 9.4 fL (7.6-11.3); RBC Red Blood Cell Count 4.72 M/uL (3.86-4.86)
[2023-02-26 03:08] LABS: Potassium 3.7 mEq/L (3.5-5.1)
[2023-02-26] MEDS: SOTALOL HCL 80 MG TAB PO SCH (06:00)
[2023-02-26 08:52] VITALS: O2SAT 94
[2023-02-26] MEDS ORDERED: ASPIRIN EC 81 MG TAB PO SCH (09:00)
[2023-02-26] MEDS ORDERED: RIVAROXABAN 10 MG TABLET PO SCH (09:00)
[2023-02-26] MEDS ORDERED: SPIRONOLACTONE 25 MG TABLET PO SCH (09:00)
[2023-02-26] MEDS: FAMOTIDINE 20 MG/2 ML VIAL IV SCH (09:43)
--- NOTE | 2023-02-26 11:22 | RAD REPORT ---
EXAM DESCRIPTION: US - Abdomen Exam Complete - 02/26/2023 9:38 am CLINICAL HISTORY: Abdominal pain. pain COMPARISON: Angio Aorta For Dissection dated 02/25/2023 FINDINGS: The liver is normal in size, shape and echotexture. No focal liver lesions or intrahepatic biliary dilatation is seen. The gallbladder demonstrates no gallstones, pericholecystic fluid or gallbladder wall thickening. Co mmon bile duct is normal in caliber measuring 4 millimeters. Both kidneys are normal in size, shape and echotexture. No hydronephrosis, focal lesion of concern or perinephric fluid. The spleen is normal in size measuring 9 centimeters. The pancreas and aorta are obscured by bowel gas. The visualized aspects of the IVC are grossly normal. IMPRESSION: Unremarkable study except for limited assessment of the pancreas and aorta due to bowel gas.
[2023-02-26 12:00] VITALS: TEMP 97.9
--- NOTE | 2023-02-26 14:22 | EKG ---
Test Date: 2023-02-25 Test Time: 11:58:01 Refrigeration Engineering Teacher: ELENA MEASUREMENT RESULTS: Intervals: Rate: 66 AR: 170 QRSD: 114 QT: 460 QTc: 482 [place]: P: 56 AR: 170 QRS: -36 T: -26 INTERPRETIVE STATEMENTS: Normal sinus rhythm Left axis deviation Nonspecific ST and T wave abnormality Prolonged QT Abnormal ECG Compared to ECG 10/18/2022 03:21:35 Left-axis deviation now present Left ventricular hypertrophy no longer present ST (T wave) deviation still present Electronically Signed On 02-26-23 14:21:25 CDT by Ivan Swanson
--- NOTE | 2023-02-26 15:47 | P.SSS ---
Patient History Date of Service: 02/26/23 Reason for admission: CHEST PAIN History of Present Illness: SHANT IS AN ANXIOUS LADY WITH HYPERTENSION WHO HAD CHEST PAIN AND L ARM PAIN FOR ABOUT 12 HOURS. SHE HAS NO DIAPHORESIS OR NAUSEA. SHE HAS NO SYMPTOMS NOW. HER CE ARE NEG. I SUSPECT NON CARDIAC CAUSE OF PAIN. DR. CASSIDY AGREES. I DID SONOGRAM IN ADDITION TO CT DISSECTION PROTOCOL AND BOTH WERE NEGATIVE. SHE WILL FU IN OFFICE. SHE MAY NEED GI CROFT IF PAIN RECURS. Allergies codeine Allergy (Verified 06/22/21 10:17) Nausea/Vomiting Home Medications: Rivaroxaban [Xarelto*] 10 mg PO DAILY 02/25/23 Sotalol HCl [Betapace*] 80 mg PO BID 02/25/23 Spironolactone 25 mg PO DAILY 02/25/23 - Past Medical/Surgical History Has patient received pneumonia vaccine in the past: Yes Diabetic: No -: A FIB -: DEBRILLATOR/PM PLACED DR ROSARIO 2017 -: MVP -: HTN -: ANXIETY DISORDER -: DEFIB. - Social History Smoking Status: Never smoker Review of Systems 10-point ROS is otherwise unremarkable Physical Examination - Vital Signs Temperature: 97.9 F Blood Pressure: 117/75 Pulse: 76 Respirations: 16 Pulse Ox (%): 99 - Physical Exam General: Alert, In no apparent distress HEENT: Atraumatic, PERRLA, Mucous membr. moist/pink, EOMI, Sclerae nonicteric Neck: Supple, 2+ carotid pulse no bruit, No LAD, Without JVD or thyroid abnormality Respiratory: Clear to auscultation bilaterally, Normal air movement Cardiovascular: Regular rate/rhythm, Normal S1 S2 Gastrointestinal: Normal bowel sounds, No tenderness Musculoskeletal: No tenderness Integumentary: No rashes Neurological: Normal gait, Normal speech, Normal strength at 5/5 x4 extr, Normal tone, Normal affect Lymphatics: No axilla or inguinal lymphadenopathy - Diagnosis (Problem(s)) (1) Atypical chest pain Current Visit: No Status: Acute Plan: HPI CROFT NEG. STABLE FOR HOME. (2) History of atrial fibrillation Current Visit: No Status: Chronic Plan: CONTINUE SOTALOL SHE GOES TO DR. LUGO FOR IT. - Disposition Disposition: ROUTINE DISCHARGE Condition: FAIR
[2023-02-26 16:07] VITALS: BP 157/86
[2023-02-26] MEDS ORDERED: SOTALOL HCL 80 MG TAB PO SCH (18:00)
[2023-02-26] MEDS ORDERED: Ringers Lactate 1,000 ML IV ONE (18:06)
--- NOTE | 2023-02-26 20:06 | CON ---
Date of Consultation: 02/26/2023 Reason For Consultation: Chest pain. History Of Present Illness: A 67-year-old female with a past medical history of atrial fibrillation, V-tach status post defibrillator in place, hypertension, and anxiety disorder, who presented to the emergency room with chest pain, radiates to the left arm, left shoulder all the way to her hand, last ed for a few hours and now she is pain free. She does not have any exertional chest pain. No shortn ess of breath. No other complaints. Past Medical History: As outlined above in the HPI. Medications: Refer to reconciliation sheet for detailed list. Allergies: CODEINE. Family History: No premature coronary artery disease or cancer. Social History: She does not smoke or drink. Does not use any drugs. Review of Systems: All systems reviewed and they were negative except what mentioned in HPI. Physical Examination: Vital Signs: Reviewed. Head and Neck: Pupils are equal, reactive to light. Intact eye movements. No JVD. No cervical lym phadenopathy. Neck is supple. Thyroid is not enlarged. Lungs: Clear to auscultation bilaterally. No rhonchi, wheezing, or crackles. No accessory muscle u se. Heart: Regular rate and rhythm. No extra sounds. Abdomen: Soft, nontender. Bowel sounds positive. No organomegaly. No masses or hernia. No rigidi ty or rebound. Extremities: No edema, clubbing, or cyanosis. Intact pulses. Skin: No rash. Neurologic: Alert, awake, oriented x3. No acute focal deficits appreciated. Lymph Nodes: No cervical or axillary lymphadenopathy. Investigations: BUN is 12, creatinine 0.66. Troponins are negative and hemoglobin is 14.0. Assessment And Recommendations: 1.Chest pain, very typical, not related to activities. Cardiac enzymes are negative and she is ches t-pain free. From Cardiology standpoint, the patient can be released, follow up as an outpatient. Adilson berg will plan for doing outpatient stress test and an echo as an outpatient. 2.Atrial fibrillation. She is in sinus. Continue sotalol and Xarelto. The patient can be released and follow up with me in the office in 1-2 weeks to arrange for stress test and an echo as outpatien tAkhil BARKLEY/VINITA Voice ID: [id number] Report ID: [id number]
--- NOTE | 2023-02-27 17:14 | EKG ---
Test Date: 2023-02-25 Test Time: 22:31:19 Speech Therapy Teacher: CAT MEASUREMENT RESULTS: Intervals: Rate: 67 AR: 180 QRSD: 112 QT: 444 QTc: 469 [place]: P: 33 AR: 180 QRS: -36 T: -21 INTERPRETIVE STATEMENTS: Normal sinus rhythm Left axis deviation Moderate voltage criteria for LVH, may be normal variant ST & T wave abnormality, consider lateral ischemia Abnormal ECG Compared to ECG 02/25/2023 11:58:01 Left ventricular hypertrophy now present Possible ischemia now present Prolonged QT interval no longer present ST (T wave) deviation still present Electronically Signed On 02-27-23 17:11:14 CDT by Ivan Swanson
== END 2023-02-26 16:22 | disposition home or self-care (01) ==
LOC: ER 11:18 → ERHOLD 13:28 → 2ND 17:05
PROVIDERS: ADMIT Internal Medicine; ATTEND Internal Medicine
DX: R07.9 Chest pain, unspecified (principal); I48.0 Paroxysmal atrial fibrillation; I10 Essential (primary) hypertension; Z88.6 Allergy status to analgesic agent; Z95.0 Presence of cardiac pacemaker
CPT/HCPCS: 96361; 93005; 85025 ×2; 80048 ×2; 36415; 83735; 85610; 80076; 81003; 84484 ×2; 83690; 83880; 71275; 74175; 71045; 76700; 96375; 96372; 96374; 99285; Q9967; J1650 ×2; J2270; J7120; J7040; J7030; G0378; J2405

== ENCOUNTER 2024-12-07 17:42 | Emergency (ER) | payer OTHER ==
--- NOTE | 2024-12-07 18:15 | ER ---
Nurse's Notes [facility] Name: Tabitha Combs Age: 68 yrs Sex: Female : 1955 Arrival Date: 12/07/2024 Time: 17:42 Bed 4 Private MD: Diagnosis: Facial abrasions, facial early cellulitis Presentation: 12/07 17:52 Chief complaint: Patient states: having some sort of reaction on her face since Monday iw , had a derma plane facial last week , also started amlodipine recently. Coronavirus screen: At this time, the client does not indicate any symptoms associated with coronavirus-19. Ebola Screen: No symptoms or risks identified at this time. Initial Sepsis Screen: Does the patient meet any 2 criteria? No. Patient's initial sepsis screen is negative. Does the patient have a suspected source of infection? No. Patient's initial sepsis screen is negative. Risk Assessment: Do you want to hurt yourself or someone else? Patient reports no desire to harm self or others. 17:52 Method Of Arrival: Ambulatory iw 17:52 Acuity: RUBIN 4 iw 17:53 Onset of symptoms was December 03, 2024. iw Historical: - Allergies: 17:53 Codeine; iw 17:53 Fentanyl; makes her sick; iw - PMHx: 17:53 Atrial Fib; Hyperlipidemia; Hypertension; SVT; iw - PSHx: 17:53 pacemker; iw Screenin:03 [facility] ED Fall Risk Assessment (Adult) History of falling in the last 3 months, ph including since admission No falls in past 3 months (0 pts) Confusion or Disorientation No (0 pts) Intoxicated or Sedated No (0 pts) Impaired Gait No (0 pts) Mobility Assist Device Used No (0 pt) Altered Elimination No (0 pt) Score/Fall Risk Level 0 - 2 = Low Risk Oriented to surroundings, Maintained a safe environment, Hourly rounding (assess needs \T\ fall precautionary measures) done. Abuse screen: Denies threats or abuse. Denies injuries from another. Nutritional screening: No deficits noted. Tuberculosis screening: No symptoms or risk factors identified. Vital Signs: 17:54 BP 164 / 106; Pulse 50; Resp 16; Temp 97.5; Pulse Ox 98% on R/A; Weight 72.57 kg; iw Height 5 ft. 7 in. ; Pain 4/10; 17:54 Body Mass Index 25.06 (72.57 kg, 170.18 cm) iw 17:54 Pain Scale: Adult iw ED Course: 17:44 Patient arrived in ED. mr 17:45 Arnold Griffiths MD is Attending Physician. sp3 17:53 Triage completed. iw 18:03 Kezia Macario, RN is Primary Nurse. ph 18:03 Arm band placed on Patient placed in an exam room, on a stretcher. ph Administered Medications: No medications were administered Outcome: 18:14 Discharge ordered by . sp3 18:27 Patient left the ED. hb Signatures: Aury Haney, Reg Reg mr Renate Platt, RN RN Kezia Macario RN RN Misty Ruth, SAVANNAH RN Arnold Griffiths MD MD sp3 Corrections: (The following items were deleted from the chart) 17:54 17:52 Chief complaint: Patient states: having some sort of reaction on her face since iw Monday , had a derma plane facial last week iw 17:55 17:54 BP 164 / 106; Pulse 50bpm; Resp 16bpm; Pulse Ox 94% RA; 72.57 kg; Height 5 ft. 7 iw in.; BMI: 25.0; Pain 4/10, Adult; iw
--- NOTE | 2024-12-07 18:15 | EDPHYS ---
Physician Documentation [facility] Name: Tabitha Combs Age: 68 yrs Sex: Female : 1955 Arrival Date: 12/07/2024 Time: 17:42 Bed 4 Private MD: ED Physician Arnold Griffiths HPI: 12/07 18:12 68-year-old female with history of prior atrial fibrillation, hyperlipidemia, sp3 hypertension that presents to the ED with chief complaint facial rash after getting a microdermabrasion performed approximately 5 days ago. Patient states she has had this procedure multiple times in the past but has not developed the redness that she has now. She saw Dr. Horn via video conference and she prescribed her Bactrim which she is taken 1 dose so far. She presents here for another opinion. She denies any pruritus, itchiness and states that the rash just "aragon". She denies any fever, headache, rash anywhere else, neck pain, airway tightening, difficulty swallowing or breathing, chest pain, shortness of breath, or any other signs or symptoms on ROS at this time.. Historical: - Allergies: 17:53 Codeine; iw 17:53 Fentanyl; makes her sick; iw - PMHx: 17:53 Atrial Fib; Hyperlipidemia; Hypertension; SVT; iw - PSHx: 17:53 pacemker; iw ROS: 18:13 Constitutional: Negative for fever, chills, and weight loss, Eyes: Negative for injury, sp3 pain, redness, and discharge, ENT: Negative for injury, pain, and discharge, Neck: Negative for injury, pain, and swelling, Cardiovascular: Negative for chest pain, palpitations, and edema, Respiratory: Negative for shortness of breath, cough, wheezing, and pleuritic chest pain, Abdomen/GI: Negative for abdominal pain, nausea, vomiting, diarrhea, and constipation, Back: Negative for injury and pain, MS/Extremity: Negative for injury and deformity, Neuro: Negative for headache, weakness, numbness, tingling, and seizure, Psych: Negative for depression, anxiety, suicide ideation, homicidal ideation, and hallucinations, Endocrine: Negative for neck swelling, polydipsia, polyuria, polyphagia, and marked weight changes, Hematologic/Lymphatic: Negative for swollen nodes, abnormal bleeding, and unusual bruising, 18:13 All other systems are negative, Exam: 18:13 Constitutional: This is a well developed, well nourished patient who is awake, alert, sp3 and in no acute distress. Eyes: Pupils equal round and reactive to light, extra-ocular motions intact. Lids and lashes normal. Conjunctiva and sclera are non-icteric and not injected. Cornea within normal limits. Periorbital areas with no swelling, redness, or edema. ENT: Nares patent. No nasal discharge, no septal abnormalities noted. External auditory canals are clear. Oropharynx with no redness, swelling, or masses, exudates, or evidence of obstruction, uvula midline. Mucous membranes moist. Neck: Trachea midline, no thyromegaly or masses palpated, and no cervical lymphadenopathy. Supple, full range of motion without nuchal rigidity, or vertebral point tenderness. No Meningismus. Chest/axilla: Normal chest wall appearance and motion. Nontender with no deformity. No lesions are appreciated. Cardiovascular: Regular rate and rhythm with a normal S1 and S2. No gallops, murmurs, or rubs. Normal PMI, no JVD. No pulse deficits. Respiratory: Lungs have equal breath sounds bilaterally, clear to auscultation and percussion. No rales, rhonchi or wheezes noted. No increased work of breathing, no retractions or nasal flaring. Abdomen/GI: Soft, non-tender, with normal bowel sounds. No distension or tympany. No guarding or rebound. No evidence of tenderness throughout. Back: No spinal tenderness. No costovertebral tenderness. Full range of motion. MS/ Extremity: Pulses equal, no cyanosis. Neurovascular intact. Full, normal range of motion. Neuro: Awake and alert, GCS 15, oriented to person, place, time, and situation. Cranial nerves II-XII grossly intact. Motor strength 5/5 in all extremities. Sensory grossly intact. Cerebellar exam normal. Normal gait. Psych: Awake, alert, with orientation to person, place and time. Behavior, mood, and affect are within normal limits. 18:13 Head/face: Rash on face including forehead cheeks and chin consistent with overlapping area of where her record dermabrasion occurred.. Vital Signs: 17:54 BP 164 / 106; Pulse 50; Resp 16; Temp 97.5; Pulse Ox 98% on R/A; Weight 72.57 kg; iw Height 5 ft. 7 in. ; Pain 4/10; 17:54 Body Mass Index 25.06 (72.57 kg, 170.18 cm) iw 17:54 Pain Scale: Adult iw MDM: 17:51 Medical Screening Exam initiated sp3 18:13 Data reviewed: vital signs, nurses notes. ED course: 68-year-old female with sp3 erythema/irritation from microdermabrasion versus early cellulitis. Will continue Bactrim since she has already started it and we will add Bactroban ointment with follow-up to [facility] where she had it done and/or dermatology as needed. Vital signs normal patient is in no acute distress.. Administered Medications: No medications were administered Disposition Summary: 12/07/24 18:14 Discharge Ordered Notes: Location: Home sp3 Condition: Stable sp3 Diagnosis - Facial abrasions, facial early cellulitis sp3 Followup: sp3 - With: Private Physician - When: Upon discharge from the Emergency Department - Reason: Continuance of care Discharge Instructions: - Discharge Summary Sheet sp3 - Cellulitis, Adult sp3 Forms: - Medication Reconciliation Form sp3 - Antibiotic Education sp3 - Prescription Opioid Use sp3 - Patient Portal Instructions sp3 - Leadership Thank You Letter sp3 Prescriptions: - mupirocin 2 % Topical ointment - apply 1 application TOPICAL route 3 times per day; 30 Each; Refills: 0, Product sp3 Selection Permitted Signatures: Renate Platt RN RN iw Arnold Griffiths MD MD sp3
[2024-12-07 18:31] VITALS: BP 164/106; TEMP 97.5; O2SAT 98
== END 2024-12-07 18:27 | disposition home or self-care (01) ==
LOC: ER 17:42
DX: L03.211 Cellulitis of face (principal); S00.81XA Abrasion of other part of head, initial encounter; Z95.0 Presence of cardiac pacemaker
CPT/HCPCS: 99281